=== PATIENT | male | born 1955 | race Caucasian/White ===

== ENCOUNTER 2020-07-26 18:34 | Emergency (ER) | payer MEDICARE, BC, SELFPAY ==
[2020-07-26 18:45] VITALS: BP 137/80; PULSE 79; RESP 20; TEMP 36.6; O2SAT 97; BMI 27.9
--- NOTE | 2020-07-26 19:25 | HMH.EDUTC ---
[facility] [place] Clinical Impression: Hypertension Qualifiers: Hypertension type: unspecified Qualified Code(s): I10 - Essential (primary) hypertension Diarrhea Qualifiers: Diarrhea type: unspecified type Qualified Code(s): R19.7 - Diarrhea, unspecified Disposition: Home, Self-Care Condition on Discharge: Good Instructions: DI for Food Poisoning, Essential Hypertension Additional Instructions: Drink plenty of fluids. Take tylenol for pain or fever. Take the medications as directed. The zofran is for nausea/vomiting if you have any. We gave you supplies to bring a stool sample back for testing if your symptoms continue. Follow up with your regular doctor. GO TO THE ER FOR ANY WORSENING SYMPTOMS Prescriptions: Ondansetron [Zofran 4mg ODT] 4 mg PO Q8HP PRN #20 tab.rapdis PRN Reason: Nausea Transmission Status: Received by [facility] #[id number] Amlodipine Besylate [Amlodipine 10mg Tab] 10 mg PO DAILY 30 Days #30 tab Transmission Status: Received by [facility] #[id number] Benazepril HCl 20 mg PO DAILY 30 Days #30 tab Transmission Status: Received by [facility] #[id number] Metformin HCl 500 mg PO BID 30 Days #60 solution Transmission Status: Received by [facility] #[id number] Referrals: PCP,No [Primary Care Provider] - Time of Disposition: 19:34 Medical Decision Making - Medical Records Medical records reviewed: No: I reviewed the patient's medical records. - Lloyd Inquiry Pt receiving controlled substance: No Vital Signs: 07/26/20 18:45 07/26/20 19:37 Temperature 98 F 98.0 F Temperature Source Oral Pulse Rate 79 Pulse Rate [Right Brachial] 79 Respiratory Rate 20 20 Blood Pressure 137/80 Blood Pressure [Right Arm] 137/80 Blood Pressure Mean [Right Arm] 99 Blood Pressure Source [Right Arm] Automatic Cuff Blood Pressure Position [Right Arm] Sitting 02 Sat by Pulse Oximetry 97 Oxygen Delivery Method Room Air [facility] [place] HPI - General Stated complaint: Needs Blood Pressed Medication,Vomiting,Diarrhea Time Seen by Provider: 07/26/20 19:25 Mode of Arrival: Ambulatory Source of Information: Patient Limitations: No Limitations Description of Symptoms (Recalled from Triage Doc. by RN): PATIENT C/O NAUSEA, DIARRHEA, BODY ACHES, AND SWEATS SINCE FRIDAY. HE STATES HE HAD [employer] AND ATE ON IT FOR 3 DAYS, GETTING SICK AFTER THE THIRD DAY. HE IS ALSO REQUESTING A REFILL ON HIS BLOOD PRESSURE MEDICATIONS HEENT Symptoms (Recalled from RN notes): No Resp Symptoms (Recalled from RN notes): No Skin Symptoms (Recalled from RN notes): No MS Symptoms (Recalled from RN notes): No Functional Status (Recalled from RN notes): WNL - History of Present Illness Provider Complaint: He states that he has had diarrhea and nausea for the past 2 days. He thinks that he ate some [employer] chicken that caused him to have his symptoms. He states that his diarrhea is doing better today. He recently moved her from [place], so he does not have a primary care physician here yet. He is about to run out of his high blood pressure medications. - Related Data Home Medications Medication Instructions Recorded Confirmed Amlodipine Besylate [Amlodipine 10 mg PO DAILY 07/26/20 07/26/20 10mg Tab] Benazepril HCl [Lotensin] 20 mg PO DAILY 07/26/20 07/26/20 Hydrocodone/Acetaminophen 1 each PO QIDP PRN 07/26/20 07/26/20 [Hydrocodone-Acetamin 10-325 mg] Previous Rx's Medication Instructions Recorded Amlodipine Besylate [Amlodipine 10 mg PO DAILY 30 Days #30 tab 07/26/20 10mg Tab] Benazepril HCl 20 mg PO DAILY 30 Days #30 tab 07/26/20 Metformin HCl 500 mg PO BID 30 Days #60 solution 07/26/20 Ondansetron [Zofran 4mg ODT] 4 mg PO Q8HP PRN #20 tab.rapdis 07/26/20 Allergies Allergy/AdvReac Type Severity Reaction Status Date / Time No Known Allergies Allergy Verified 07/26/20 19:08 - Worker's Comp Is this a Worker's Comp case?: No [facility] Histo
[2020-07-26 19:37] VITALS: BP 137/80; PULSE 79; RESP 20; TEMP 36.7; O2SAT 97
== END 2020-07-26 19:42 | disposition home or self-care (01) ==
PROVIDERS: Emergency Provider Nurse Practitioner Family
DX: R19.7 Diarrhea, unspecified (principal); R11.10 Vomiting, unspecified; I10 Essential (primary) hypertension; Z79.899 Other long term (current) drug therapy
CPT/HCPCS: 99202; G0463

== ENCOUNTER 2021-01-03 18:12 | Emergency (ER) | payer MEDICARE, BC, SELFPAY ==
[2021-01-03 18:17] VITALS: BP 135/90; PULSE 90; RESP 16; TEMP 37; O2SAT 98; BMI 27.2
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
[2021-01-03 18:52] VITALS: BP 135/90; PULSE 90; RESP 16; TEMP 37
== END 2021-01-03 18:59 | disposition home or self-care (01) ==
PROVIDERS: Emergency Provider Nurse Practitioner; PCP Family Medicine
DX: H66.92 Otitis media, unspecified, left ear (principal); H61.22 Impacted cerumen, left ear
CPT/HCPCS: G0463; 99202

== ENCOUNTER → 2021-01-16 11:22 | Outpatient (POV) | payer MEDICARE, BC, SELFPAY ==
[2021-01-16 11:45] VITALS: BP 118/79; PULSE 87; RESP 18; O2SAT 97; BMI 27.6
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
== END ==
PROVIDERS: Visit Provider Clinical Nurse Specialist Family Health
DX: R51.9 Headache, unspecified (principal); G89.29 Other chronic pain
CPT/HCPCS: 99212; G0463

== ENCOUNTER → 2021-02-05 15:09 | Outpatient (POV) | payer MEDICARE, BC, SELFPAY ==
[2021-02-05 15:57] VITALS: BP 107/74; PULSE 84; RESP 18; O2SAT 97; BMI 28.3
[2021-02-05 16:47] LABS: Amphetamine/Metha Screen,Urine Negative ng/ml (<1000); Barbiturates Screen,Urine Negative ng/ml (<200)
[2021-02-05 16:48] LABS: Benzodiazepines Screen,Urine Negative ng/ml (<200)
[2021-02-05 16:49] LABS: Cannabinoid Screen,Urine Negative ng/ml (<50); Cocaine Screen,Urine Negative ng/ml (<300)
[2021-02-05 16:50] LABS: Methadone Screen,Urine Negative ng/ml (<300)
[2021-02-05 16:51] LABS: Phencyclidine Screen,Urine Negative ng/ml (<25)
[2021-02-05 18:28] LABS: Opiate Screen,Urine Positive ng/ml (<300)
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
== END ==
PROVIDERS: Visit Provider Clinical Nurse Specialist Family Health
DX: G89.4 Chronic pain syndrome (principal); R51.9 Headache, unspecified; Z79.899 Other long term (current) drug therapy
CPT/HCPCS: 80305; 99212; G0463

== ENCOUNTER → 2021-03-15 10:12 | Outpatient (POV) | payer MEDICARE, BC, SELFPAY ==
[2021-03-15 10:20] VITALS: BP 142/77; PULSE 84; RESP 18; O2SAT 98; BMI 29.5
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
== END ==
PROVIDERS: Visit Provider Clinical Nurse Specialist Family Health
DX: G89.4 Chronic pain syndrome; R51.9 Headache, unspecified
CPT/HCPCS: 99212; G0463

== ENCOUNTER → 2021-04-16 10:48 | Outpatient (POV) | payer MEDICARE, BC, SELFPAY ==
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
[2021-04-16 11:32] VITALS: BP 126/86; PULSE 81; RESP 18; O2SAT 98; BMI 28.3
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
== END ==
PROVIDERS: Visit Provider Clinical Nurse Specialist Family Health
DX: G89.4 Chronic pain syndrome (principal); R51.9 Headache, unspecified
CPT/HCPCS: 99212; G0463

== ENCOUNTER → 2021-05-17 07:33 | Outpatient (POV) | payer MEDICARE, BC, SELFPAY ==
--- NOTE | 2021-05-17 08:16 | HMH.VVPMSO ---
[facility] PM Virtual Visit SOAP Consent for virtual visit:: With the recent concerns about the COVID-19, we are trying to minimize exposure to you by shifting to telehealth appointments whenever possible. It restricts me from seeing you in person, but the trade off is protecting you during this pandemic. Can you see and hear me okay, and do you consent to this option? If not, I would be happy to see if we can reschedule your appointment in the future, when feasible. Has patient consented to this virtual visit?: Yes Subjective:: pATIENT is a 65 year old white male who is following up via telehealth phone visit due to weather conditions today. We are conducting this visit from his home and my home today. The patient states he is doing well overall with his medication regimen. We currently manage the patient with [place] 10 mg 1 tablet p.o. 4 times daily moderate pain as well as gabapentin 3 mg 1 tablet p.o. 3 times daily. The medicines are working well for him. He is at baseline for his pain. The patient is treated for chronic low back pain and lumbar radicular symptoms. He denies any side effects of medicines. Previous drug screens have been appropriate. His Nikita is appropriate. Review of Systems General: No recent weight changes, no fever, no sleep disturbances Respiratory: No cough, no shortness of air, no recurring pulmonary infections Cardiovascular/peripheral vascular: No chest pain, no palpitations, no edema, no shortness of breath Gastrointestinal: No new onset incontinence, normal bowel movements reported Genitourinary: No new onset incontinence Musculoskeletal: Chronic low back pain with pain in bilateral lower extremities Psychiatric: [Normal mood/affect] Neurological: [Denies weakness in extremities], [denies balance issues] Objective:: Physical exam General: Alert and oriented x3, no acute distress, pleasant and cooperative Assessment:: Degenerative disc disease lumbar spine with lumbar radiculopathy symptoms Plan:: We will continue the patient's Kimball 10 mg 1 tablet p.o. 4 times daily and gabapentin 100 mg 1 tablet p.o. 3 times daily. We'll give the patient a month medication will see him back in the clinic at next visit. ORT is minimal risk Risks and benefits of the medication have been explained in detail to the patient. The patient does understand the risk of dependence on the medication when given over a prolonged period. Patient has been advised of risks of oversedation with the prescribed medication. Narcan has been offered to the paitent in the event of oversedation. Patient has been advised that a family member should also be educated regarding administration of Narcan. The patient has been advised to consult with his/her primary care provider and pharmacist regarding drug-drug interaction of medications currently prescribed. Patient has been prescribed a controlled substance after being counseled on the medication, medication safety, and possible side effects. NIKITA report has been obtained and reviewed prior to prescription and found to be appropriate. Opioid contract was reviewed and signed by the patient, and that they have agreed to all of the terms set forth by our compliance program. Patient has been instructed to contact the clinic with any concerns before the next appointment. Dr. Santiago has reviewed this note and agrees with this plan of care. This note was dictated using voice recognition software and make contain errors or omissions. Time In:: 08:00 Time Out:: 08:10 [facility] History I have reviewed the patient's past medical history: Yes *Have you ever received a pneumonia vaccine?: No *Have you received a flu vaccine this season?: No - *Social History Smoking Status: Never smoker Alcohol Intake: never *Occupational Status:: unemployed *Travel in the last 8 weeks: None Family Hx:: Non-contributory
== END ==
PROVIDERS: Visit Provider Clinical Nurse Specialist Family Health
DX: M51.16 Intervertebral disc disorders with radiculopathy, lumbar region (principal)
CPT/HCPCS: 99212; G0463

== ENCOUNTER → 2021-06-14 10:42 | Outpatient (POV) | payer MEDICARE, BC, SELFPAY ==
[2021-06-14 12:21] VITALS: BP 143/92; PULSE 77; RESP 20; TEMP 36.7; O2SAT 96; BMI 28.3
--- NOTE | 2021-06-14 14:47 | HMH.PAINSOAP ---
[facility] Pain Management SOAP Note Subjective:: She is a very pleasant 66-year-old white male who presents today for follow-up. He is currently being treated for degenerative disc disease of lumbar spine with lumbar radiculopathy. He is currently taking [place] 10 mg 1 tablet p.o. 4 times daily and gabapentin 300 mg 1 tablet p.o. 3 times daily. He denies any adverse effects to his medications. He states that the current pain medications are helping him be more functional and ambulate better. He rates his pain today as a 6 out of 10. He is requesting refills on his medications today. Objective:: General: Alert and oriented x3, no acute distress, pleasant and cooperative Lungs: Resps E/U, symmetric chest expansion Eyes: PERRL Musculoskeletal: limited flexion and extension of the lumbar spine secondary to pain. Deep tendon reflexes were normal in bilateral lower extremities. Motor exam was grossly intact in the bilateral lower extremities, antalgic gait noted. Neurological: Speech is clear, global human resources director equal, no gross sensory deficits Assessment:: Degenerative disc disease of the lumbar spine with lumbar radiculopathy Plan:: I discussed with the patient that we will refill [place] 10 mg 1 tablet p.o. 4 times daily #120 for a 1 month supply and gabapentin 300 mg 1 tablet p.o. 3 times daily #90 for 1 month supply. We will follow-up with this patient in 1 month for reassessment of his chronic pain symptoms and medication refills. Lloyd and prior drug screens were reviewed and appropriate. [facility] History *Have you ever received a pneumonia vaccine?: No *Have you received a flu vaccine this season?: No - *Social History Smoking Status: Never smoker Alcohol Intake: never *Occupational Status:: other *Travel in the last 8 weeks: None Family Hx:: Non-contributory
== END ==
PROVIDERS: Visit Provider Anesthesiology Pain Medicine
DX: M51.16 Intervertebral disc disorders with radiculopathy, lumbar region (principal)
CPT/HCPCS: 99212; G0463

== ENCOUNTER → 2021-07-16 10:22 | Outpatient (POV) | payer MEDICARE, BC, SELFPAY ==
[2021-07-16 10:42] VITALS: BP 133/90; PULSE 90; RESP 18; TEMP 36.3; O2SAT 97; BMI 28.7
[2021-07-16 11:41] LABS: Benzodiazepines Screen,Urine Negative ng/ml (<200)
[2021-07-16 11:42] LABS: Amphetamine/Metha Screen,Urine Negative ng/ml (<1000); Barbiturates Screen,Urine Negative ng/ml (<200)
[2021-07-16 11:43] LABS: Cannabinoid Screen,Urine Negative ng/ml (<50); Cocaine Screen,Urine Negative ng/ml (<300)
[2021-07-16 11:44] LABS: Methadone Screen,Urine Negative ng/ml (<300)
[2021-07-16 11:45] LABS: Opiate Screen,Urine Positive ng/ml (<300); Phencyclidine Screen,Urine Negative ng/ml (<25)
--- NOTE | 2021-07-16 11:51 | HMH.PAINSOAP ---
[facility] Pain Management SOAP Note Subjective:: Patient is a pleasant 66-year-old male who is here for medication refill and follow-up. Patient is currently being treated for degenerative disc disease of lumbar spine with lumbar radiculopathy symptoms. Patient is being managed with [place] 10 mg 4 times a day and gabapentin 100 mg 3 times a day. Patient states that if he takes the gabapentin 3 times a day, he gets nerve pain around his left ankle. This got better when he stopped taking his gabapentin. Does say that the gabapentin is helping his nerve pain a lot but has to watch how often he takes it. Patient denies any changes to the location and type of pain. Patient states that this is adequately helping manage their pain. Rates pain as 0 out of 10. [facility] number [phone] with an active morphine equivalent 40. Drug screens have been reviewed and appropriate. Review of Systems: General: No recent weight changes, no fever, no sleep disturbances Respiratory: No cough, no shortness of air, no recurring pulmonary infections Cardiovascular/peripheral vascular: No chest pain, no palpitations, no edema, no shortness of breath Gastrointestinal: No new onset incontinence, normal bowel movements reported Genitourinary: No new onset incontinence Musculoskeletal: Low back pain Psychiatric: [Normal mood/affect] Neurological: [Denies weakness in extremities], [denies balance issues] Objective:: Physical Exam: General: Alert and oriented x3, no acute distress, pleasant and cooperative, [on room air] Lungs: Respirations even and unlabored, symmetrical chest expansion Eyes: PERRL Musculoskeletal: Flexion and extension of lumbar [spine] somewhat guarded secondary to pain, [antalgic gait noted] Neurological: Speech clear, no gross sensory deficit Assessment:: Degenerative disc disease of lumbar spine with lumbar radiculopathy symptoms Plan:: We will continue the patient's [place] 10 mg 4 times a day. We will change his gabapentin to gabapentin 100 mg twice a day. We will provide the patient with 1 month worth of refill. Follow-up in 1 month. If patient continues to have pain when taking gabapentin, will consider changing the patient to gabapentin 100 mg to take at night only and will add Cymbalta. Patient has been instructed to contact the clinic with any concerns before the next appointment. Dr. Santiago has reviewed this note and agrees with this plan of care. This note was dictated using voice recognition software and make contain errors or omissions. [facility] History *Have you ever received a pneumonia vaccine?: No *Have you received a flu vaccine this season?: No - *Social History Smoking Status: Never smoker Alcohol Intake: never *Occupational Status:: unemployed *Travel in the last 8 weeks: None Family Hx:: Non-contributory
[2021-07-24 15:11] LABS: Codeine Negative (Cutoff=100); Hydrocodone Positive (.); Hydromorphone Positive (.); Morphine Negative (Cutoff=100); Opiates Positive (.)
== END ==
PROVIDERS: Visit Provider Student in an Organized Health Care Education/Training Program
DX: M51.16 Intervertebral disc disorders with radiculopathy, lumbar region (principal); Z79.891 Long term (current) use of opiate analgesic
CPT/HCPCS: 80305; 80361; 80365; 99212; G0463; G0480

== ENCOUNTER 2021-08-01 18:20 | Emergency (ER) | payer MEDICARE, BC, SELFPAY ==
[2021-08-01 18:48] VITALS: BP 130/70; PULSE 84; RESP 19; TEMP 36.9; O2SAT 94; BMI 28.7
[2021-08-01 19:13] LABS: POC Glucose,Bedside 106 (70-110)
--- NOTE | 2021-08-01 19:16 | HMH.EDUTC ---
[facility] [place] Disposition Clinical Impression: Bronchitis Sinusitis Qualifiers: Sinusitis location: unspecified location Chronicity: unspecified Qualified Code(s): J32.9 - Chronic sinusitis, unspecified Disposition: Home, Self-Care Condition on Discharge: Good Instructions: Sinusitis, Acute Bronchitis, DI for Sinusitis, DI for Acute Bronchitis, Azithromycin Additional Instructions: ? Start antibiotic today. Be sure to complete entire prescription even if feeling better ? Monitor temp. Tylenol every 4 hours as needed and / or ibuprofen every 6 hours as needed ( As long as your primary care physician has told you that it ok to take both. For fever/aches/pains ER if no less than 101 despite Tylenol or Motrin ? Humidifier/vaporizer or hot steamy shower *Tessalon Perles will not cause drowsiness but use at bedtime to help stop cough so that you may get some rest. Follow up IMMEDIATELY for new or worsening of symptoms OR no noticeable improvement over the next 48-72 hours. 911 immediately for any life threatening symptoms such as chest pain or difficulty breathing Prescriptions: Albuterol Sulfate [Proventil-HFA 90mcg/puff Inh] 1 - 2 puffs IH Q6HP PRN #1 each PRN Reason: Shortness Of Breath Transmission Status: Received by [id number] Benzonatate [Benzonatate 100mg cap] 100 mg PO Q8HP PRN #15 cap PRN Reason: Cough Transmission Status: Received by [id number] Azithromycin [Z-Lamin 250mg Tab] 250 mg PO DIRECTED #6 tab Transmission Status: Received by [id number] Ondansetron [Zofran 4mg ODT] 4 mg PO TIDP PRN #10 tab PRN Reason: Nausea Transmission Status: Received by [id number] Referrals: Concepcion Knutson MD [Primary Care Provider] - As needed Time of Disposition: 19:33 Medical Decision Making - Lloyd Inquiry Pt receiving controlled substance: No Lloyd was queried for this patient: No Vital Signs: 08/01/21 18:48 08/01/21 19:54 Temperature 98.4 F 98.4 F Temperature Source Oral Pulse Rate 84 Pulse Rate [Left Radial] 84 Respiratory Rate 19 19 Blood Pressure 130/70 Blood Pressure [Left Arm] 130/70 Blood Pressure Mean [Left Arm] 90 Blood Pressure Source [Left Arm] Automatic Cuff Blood Pressure Position [Left Arm] Sitting 02 Sat by Pulse Oximetry 94 L Oxygen Delivery Method Room Air - Lab Data Lab results reviewed: Yes: I reviewed the patient's lab results. Lab Results 08/01/21 18:57: Urine Color Yellow, Urine Appearance Clear, Urine pH 6.5, Ur Specific [place] 1.020, Urine Protein Negative, Urine Glucose (UA) Negative, Urine Ketones Negative, Urine Blood Negative, Urine Nitrate Negative, Urine Bilirubin Negative, Urine Urobilinogen 1, Ur Leukocyte Esterase Negative 08/01/21 19:06: POC Glucose 106 Orders (Tests/Meds): ED MEDICATIONS Discontinued Medications Generic Name Dose Route Start Last Admin Trade Name Jane PRN Reason Stop Dose Admin Azithromycin 500 mg 08/01/21 19:38 08/01/21 19:40 Azithromycin 250mg Tablet PO 08/01/21 19:39 500 mg ONCE ONE Administration Medical Decision Narrative: Recommended flu, COVID and strep and patient refused Recommended CXR and patient refused discussed medications with patient recommended Cefdinir and patient declined states that he would take bactrim or zpack [facility] [place] [facility] HPI - General Stated complaint: SOB cough Abd pain body aches Time Seen by Provider: 08/01/21 18:55 Mode of Arrival: Ambulatory Source of Information: Patient Limitations: No Limitations Description of Symptoms (Recalled from Triage Doc. by RN): C/O bodyaches, productive cough x2 days HEENT Symptoms (Recalled from RN notes): No Resp Symptoms (Recalled from RN notes): Yes (cough) Skin Symptoms (Recalled from RN notes): No MS Symptoms (Recalled from RN notes): Yes (bodyaches) Functional Status (Recalled from RN notes): n/a - History of Present Illness Provider Complaint: Patient states that he has been having cough, sinus pa
[2021-08-01 19:33] LABS: Apearance,Urine Clear (Clear); Bilirubin,Urine Negative (Negative); Blood, Urine Negative (Negative); Color,Urine Yellow (Yellow); Glucose,Urine (UA) Negative (Negative); Ketones,Urine Negative (Negative); PH,Urine 6.5 (5.0-8.5); Protein,Urine Negative (Negative); UTC Leukocyte Esterase,Urine Negative (Negative); UTC Nitrate,Urine Negative (Negative); Urobilinogen,Urine 1 EU/dl (0.2)
[2021-08-01 19:54] VITALS: BP 130/70; PULSE 84; RESP 19; TEMP 36.9; O2SAT 94
== END 2021-08-01 19:55 | disposition home or self-care (01) ==
PROVIDERS: Emergency Provider Nurse Practitioner; PCP Family Medicine
DX: J20.9 Acute bronchitis, unspecified (principal); J32.9 Chronic sinusitis, unspecified
CPT/HCPCS: 81003; 82962; 99212; G0463

== ENCOUNTER → 2021-08-16 09:43 | Outpatient (POV) | payer MEDICARE, BC, SELFPAY ==
[2021-08-16 09:54] VITALS: BP 148/91; PULSE 92; RESP 18; TEMP 36.5; O2SAT 96; BMI 28.4
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
== END ==
PROVIDERS: Visit Provider Student in an Organized Health Care Education/Training Program
DX: M51.16 Intervertebral disc disorders with radiculopathy, lumbar region (principal); G58.8 Other specified mononeuropathies
CPT/HCPCS: 99212; G0463

== ENCOUNTER → 2021-09-17 09:40 | Outpatient (POV) | payer MEDICARE, BC, SELFPAY ==
[2021-09-17 10:33] VITALS: BP 146/93; PULSE 81; RESP 18; TEMP 36.8; O2SAT 95; BMI 28.4
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
== END ==
PROVIDERS: Visit Provider Student in an Organized Health Care Education/Training Program
DX: M51.16 Intervertebral disc disorders with radiculopathy, lumbar region (principal); G89.29 Other chronic pain
CPT/HCPCS: 99212; G0463

== ENCOUNTER → 2021-10-16 10:13 | Outpatient (POV) | payer MEDICARE, BC, SELFPAY ==
[2021-10-16 10:23] VITALS: BP 133/81; PULSE 85; RESP 20; TEMP 37; O2SAT 97; BMI 28.7
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
[2021-10-16 15:38] LABS: Amphetamine/Metha Screen,Urine Negative ng/ml (<1000); Barbiturates Screen,Urine Negative ng/ml (<200)
[2021-10-16 15:39] LABS: Benzodiazepines Screen,Urine Negative ng/ml (<200)
[2021-10-16 15:40] LABS: Cannabinoid Screen,Urine Negative ng/ml (<50); Cocaine Screen,Urine Negative ng/ml (<300)
[2021-10-16 15:41] LABS: Methadone Screen,Urine Negative ng/ml (<300)
[2021-10-16 15:42] LABS: Opiate Screen,Urine Positive ng/ml (<300); Phencyclidine Screen,Urine Negative ng/ml (<25)
[2021-10-23 15:11] LABS: Codeine Negative (Cutoff=100); Hydrocodone Positive (.); Hydromorphone Positive (.); Morphine Negative (Cutoff=100); Opiates Positive (.)
== END ==
PROVIDERS: Visit Provider Student in an Organized Health Care Education/Training Program
DX: M51.16 Intervertebral disc disorders with radiculopathy, lumbar region (principal); Z79.891 Long term (current) use of opiate analgesic; G50.1 Atypical facial pain
CPT/HCPCS: 80305; 80361; 80365; 99212; G0463; G0480

== ENCOUNTER → 2021-10-16 10:38 | Outpatient (CLI) | payer MEDICARE, BC, SELFPAY | PROVIDERS: PCP Family Medicine; Visit Provider Student in an Organized Health Care Education/Training Program | DX: Z79.891 Long term (current) use of opiate analgesic (principal) ==

== ENCOUNTER → 2021-11-15 11:42 | Outpatient (POV) | payer MEDICARE, BC, SELFPAY ==
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
== END ==
PROVIDERS: PCP Family Medicine; Visit Provider Nurse Practitioner Family
DX: M51.16 Intervertebral disc disorders with radiculopathy, lumbar region (principal); G50.0 Trigeminal neuralgia
CPT/HCPCS: 99212; G0463

== ENCOUNTER → 2021-12-13 10:18 | Outpatient (POV) | payer MEDICARE, BC, SELFPAY ==
[2021-12-13 10:30] VITALS: BP 137/81; PULSE 96; RESP 18; TEMP 36.7; O2SAT 97; BMI 28.4
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
== END | disposition home or self-care (01) ==
PROVIDERS: PCP Family Medicine; Visit Provider Nurse Practitioner Family
DX: M51.16 Intervertebral disc disorders with radiculopathy, lumbar region (principal)
CPT/HCPCS: 99212; G0463

== ENCOUNTER → 2022-01-14 10:05 | Outpatient (POV) | payer MEDICARE, BC, SELFPAY ==
[2022-01-14 10:54] VITALS: BP 154/90; PULSE 77; RESP 18; TEMP 36.6; O2SAT 94; BMI 28.1
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
[2022-01-14 11:40] LABS: Amphetamine/Metha Screen,Urine Negative ng/ml (<1000); Barbiturates Screen,Urine Negative ng/ml (<200)
[2022-01-14 11:41] LABS: Benzodiazepines Screen,Urine Negative ng/ml (<200)
[2022-01-14 11:42] LABS: Cannabinoid Screen,Urine Negative ng/ml (<50); Cocaine Screen,Urine Negative ng/ml (<300)
[2022-01-14 11:43] LABS: Methadone Screen,Urine Negative ng/ml (<300)
[2022-01-14 11:44] LABS: Opiate Screen,Urine Positive ng/ml (<300); Phencyclidine Screen,Urine Negative ng/ml (<25)
[2022-01-24 16:12] LABS: Codeine Negative (Cutoff=100); Hydrocodone Positive (.); Hydromorphone Positive (.); Morphine Negative (Cutoff=100); Opiates Positive (.)
== END | disposition home or self-care (01) ==
PROVIDERS: PCP Family Medicine; Visit Provider Nurse Practitioner Family
DX: M51.16 Intervertebral disc disorders with radiculopathy, lumbar region (principal); Z79.891 Long term (current) use of opiate analgesic; M79.2 Neuralgia and neuritis, unspecified
CPT/HCPCS: 80305; 80361; 80365; 99212; G0463; G0480

== ENCOUNTER → 2022-02-14 10:16 | Outpatient (POV) | payer MEDICARE, BC, SELFPAY ==
[2022-02-14 10:35] VITALS: BP 146/86; PULSE 82; RESP 18; TEMP 36.6; O2SAT 97; BMI 27.8
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
== END | disposition home or self-care (01) ==
PROVIDERS: PCP Family Medicine; Visit Provider Nurse Practitioner Family
DX: M51.16 Intervertebral disc disorders with radiculopathy, lumbar region (principal)
CPT/HCPCS: 99212; G0463

== ENCOUNTER → 2022-03-14 10:11 | Outpatient (POV) | payer MEDICARE, BC, SELFPAY ==
[2022-03-14 10:32] VITALS: BP 131/76; PULSE 96; RESP 18; O2SAT 98; BMI 28.1
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
== END | disposition home or self-care (01) ==
PROVIDERS: PCP Family Medicine; Visit Provider Nurse Practitioner Family
DX: M51.16 Intervertebral disc disorders with radiculopathy, lumbar region (principal); Z79.899 Other long term (current) drug therapy
CPT/HCPCS: 99212; G0463

== ENCOUNTER → 2022-04-11 08:37 | Outpatient (POV) | payer MEDICARE, BC, SELFPAY ==
[2022-04-11 08:47] VITALS: BP 119/84; PULSE 94; RESP 18; O2SAT 97; BMI 28.3
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
== END | disposition home or self-care (01) ==
PROVIDERS: PCP Psychiatry & Neurology Sleep Medicine; Visit Provider Nurse Practitioner Family
DX: M51.16 Intervertebral disc disorders with radiculopathy, lumbar region (principal); Z79.899 Other long term (current) drug therapy
CPT/HCPCS: 99212; G0463

== ENCOUNTER → 2022-05-09 08:38 | Outpatient (POV) | payer MEDICARE, BC, SELFPAY ==
[2022-05-09 08:49] VITALS: BP 140/89; PULSE 83; RESP 18; O2SAT 97; BMI 24.0
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
== END | disposition home or self-care (01) ==
PROVIDERS: PCP Family Medicine; Visit Provider Nurse Practitioner Family
DX: M51.16 Intervertebral disc disorders with radiculopathy, lumbar region (principal)
CPT/HCPCS: 99212; G0463

== ENCOUNTER → 2022-05-09 08:53 | Outpatient (CLI) | payer MEDICARE, BC, SELFPAY ==
[2022-05-09 10:01] LABS: Amphetamine/Metha Screen,Urine Negative ng/ml (<1000)
[2022-05-09 10:02] LABS: Barbiturates Screen,Urine Negative ng/ml (<200); Benzodiazepines Screen,Urine Negative ng/ml (<200)
[2022-05-09 10:03] LABS: Cannabinoid Screen,Urine Negative ng/ml (<50); Cocaine Screen,Urine Negative ng/ml (<300)
[2022-05-09 10:04] LABS: Methadone Screen,Urine Negative ng/ml (<300)
[2022-05-09 10:05] LABS: Opiate Screen,Urine Positive ng/ml (<300); Phencyclidine Screen,Urine Negative ng/ml (<25)
[2022-05-15 20:55] LABS: Codeine Negative (Cutoff=100); Hydrocodone Positive (.); Hydromorphone Positive (.); Morphine Negative (Cutoff=100); Opiates Positive (.)
== END ==
PROVIDERS: PCP Family Medicine; Visit Provider Nurse Practitioner Family
DX: Z79.891 Long term (current) use of opiate analgesic (principal)
CPT/HCPCS: 80305; 80361; 80365; 99212; G0463; G0480

== ENCOUNTER → 2022-06-10 08:50 | Outpatient (POV) | payer MEDICARE, BC, SELFPAY ==
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
[2022-06-10 10:10] VITALS: BP 116/80; PULSE 92; RESP 18; O2SAT 98; BMI 28.3
== END | disposition home or self-care (01) ==
PROVIDERS: PCP Family Medicine; Visit Provider Nurse Practitioner Family
DX: M51.16 Intervertebral disc disorders with radiculopathy, lumbar region (principal)
CPT/HCPCS: 99212; G0463

== ENCOUNTER 2022-06-16 14:44 | Emergency (ER) | payer MEDICARE, BC, SELFPAY ==
[2022-06-16 15:10] VITALS: BP 122/81; PULSE 92; RESP 22; TEMP 36.6; O2SAT 97; BMI 28.3
--- NOTE | 2022-06-16 15:22 | EXP.UTC ---
Discharge Plan Disposition Patient Disposition: Home, Self-Care Condition: Good Prescriptions Prescriptions: No Action amlodipine 10 MG tablet 10 mg PO DAILY benazepril 20 MG tablet 20 mg PO DAILY metformin 500 MG/5 ML solution 500 mg PO BID benzonatate 100 MG capsule 100 mg PO Q8HP PRN (Reason: Cough) Qty: 15 0RF albuterol sulfate 200 PUFFS HFA aerosol inhaler 1 - 2 puffs IH Q6HP PRN (Reason: Shortness Of Breath) Qty: 1 0RF ondansetron 4 MG tablet,disintegrating 4 mg PO TIDP PRN (Reason: Nausea) Qty: 10 0RF ibuprofen 800 MG tablet 800 mg PO TID PRN (Reason: Moderate Pain) 30 Days Qty: 240 1RF hydrocodone-acetaminophen 1 EACH tablet 1 tab PO QID Qty: 120 0RF gabapentin 100 MG capsule 300 mg PO BID Qty: 60 0RF duloxetine 60 MG capsule,delayed release(DR/EC) 60 mg PO DAILY hydroxyzine HCl 10 mg tablet 10 mg PO TID PRN (Reason: itching) Qty: 42 0RF tizanidine [Zanaflex] 4 mg tablet 4 mg PO HS Referrals Follow up/Referrals: Concepcion Knutson MD [Primary Care Provider] - See instructions Activity Restrictions/Add. Instructions Additional Instructions/Restrictions: Keep wound clean and dry \ Allow dermabond and steri strip to wear off do not pick or pull it off Watch for signs of infection including but not limited too redness, drainage, and streaks if seen follow up with your Family Doctor immediately Return if needed Clinical Impressions Clinical Impression: Finger laceration Qualifiers: Encounter type: initial encounter Finger: index finger Damage to nail status: without damage Foreign body presence: without foreign body Laterality: left Qualified Code(s): S61.211A - Laceration without foreign body of left index finger without damage to nail, initial encounter Instructions Patient Instructions: DI for Laceration Repair-Skin Glue Discharge ED Provider: Raegan Penn [facility] HPI General Stated complaint: AO@Home 3/5 LT hand forefinger lesion Time Seen by Provider: 06/16/22 15:22 History of Present Illness Provider Complaint: Patient states that he was cutting a can open when the knife slipped and he cut himself on the pad of his left index finger States that it wasnt cut bad but he knew he needed to get something done for it so he came in Related Data Home Medications Medication Instructions Recorded Confirmed amlodipine 10 mg tablet 10 mg PO DAILY . 06/14/21 06/10/22 benazepril 20 mg tablet 20 mg PO DAILY . 06/14/21 06/10/22 metformin 500 mg/5 mL oral solution 500 mg PO BID Diabetes 06/14/21 06/10/22 duloxetine 60 mg capsule,delayed 60 mg PO DAILY MOOD 09/17/21 06/10/22 release tizanidine 4 mg tablet (Zanaflex) 4 mg PO HS MUSCLE 02/14/22 06/10/22 Previous Rx's Medication Instructions Recorded albuterol sulfate 90 mcg/actuation 1 - 2 puffs IH Q6HP PRN Shortness 08/01/21 aerosol inhaler Of Breath #1 ea benzonatate 100 mg capsule 100 mg PO Q8HP PRN Cough #15 caps 08/01/21 ondansetron 4 mg disintegrating 4 mg PO TIDP PRN Nausea #10 tabs 08/01/21 tablet ibuprofen 800 mg tablet 800 mg PO TID PRN Moderate Pain 30 11/15/21 days #240 tabs hydroxyzine HCl 10 mg tablet 10 mg PO TID PRN itching #42 tabs 01/14/22 gabapentin 100 mg capsule 300 mg PO BID Pain #60 caps 06/10/22 hydrocodone 10 mg-acetaminophen 1 tab PO QID Pain #120 tabs 06/10/22 325 mg tablet Allergies Allergy/AdvReac Type Severity Reaction Status Date / Time No Known Allergies Allergy Verified 07/26/20 19:08 [facility] Disclaimer: The information contained in this section may have been updated after the patient was seen, as this information can be updated by other users. Social History Smoking Status: Never smoker alcohol intake: never current occupational status: disabled Travel in the last 8 weeks: None ROS Obtained: Yes All systems reviewed & no additional complaints except as documented and Yes Systems reviewed as appropriate & no add
[2022-06-16 15:49] VITALS: BP 122/81; PULSE 92; RESP 22; TEMP 36.6; O2SAT 97
== END 2022-06-16 15:53 | disposition home or self-care (01) ==
PROVIDERS: Emergency Provider Nurse Practitioner; PCP Family Medicine
DX: S61.211A Laceration without foreign body of left index finger without damage to nail, initial encounter (principal)
CPT/HCPCS: 99212; 99213; G0463

== ENCOUNTER → 2022-07-08 09:09 | Outpatient (POV) | payer MEDICARE, BC, SELFPAY ==
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
[2022-07-08 10:33] VITALS: BP 123/77; PULSE 85; RESP 18; O2SAT 97; BMI 24.4
== END | disposition home or self-care (01) ==
PROVIDERS: PCP Family Medicine; Visit Provider Nurse Practitioner Family
DX: M51.16 Intervertebral disc disorders with radiculopathy, lumbar region (principal)
CPT/HCPCS: 99212; G0463

== ENCOUNTER → 2022-09-05 10:34 | Outpatient (POV) | payer MEDICARE, BC, SELFPAY ==
[2022-09-05 10:47] VITALS: BP 143/94; PULSE 91; RESP 20; BMI 28.7
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
[2022-09-05 11:32] LABS: Amphetamine/Metha Screen,Urine Negative ng/ml (<1000)
[2022-09-05 11:33] LABS: Barbiturates Screen,Urine Negative ng/ml (<200); Benzodiazepines Screen,Urine Negative ng/ml (<200)
[2022-09-05 11:34] LABS: Cannabinoid Screen,Urine Negative ng/ml (<50)
[2022-09-05 11:35] LABS: Cocaine Screen,Urine Negative ng/ml (<300)
[2022-09-05 11:36] LABS: Methadone Screen,Urine Negative ng/ml (<300)
[2022-09-05 11:37] LABS: Opiate Screen,Urine Positive ng/ml (<300); Phencyclidine Screen,Urine Negative ng/ml (<25)
[2022-09-11 18:05] LABS: Codeine Negative (Cutoff=100); Hydrocodone Positive (.); Hydromorphone Positive (.); Morphine Negative (Cutoff=100); Opiates Positive (.)
== END | disposition home or self-care (01) ==
PROVIDERS: PCP Family Medicine; Visit Provider Nurse Practitioner Family
DX: M51.16 Intervertebral disc disorders with radiculopathy, lumbar region (principal); Z79.891 Long term (current) use of opiate analgesic
CPT/HCPCS: 80305; 80361; 80365; 99212; G0463; G0480

== ENCOUNTER → 2022-10-03 09:46 | Outpatient (POV) | payer MEDICARE, BC, SELFPAY ==
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
[2022-10-03 09:55] VITALS: BP 127/76; PULSE 73; RESP 18; O2SAT 97; BMI 28.4
== END | disposition home or self-care (01) ==
PROVIDERS: PCP Family Medicine; Visit Provider Nurse Practitioner Family
DX: M51.16 Intervertebral disc disorders with radiculopathy, lumbar region (principal); G50.1 Atypical facial pain
CPT/HCPCS: 99212; G0463

== ENCOUNTER → 2022-11-04 10:03 | Outpatient (POV) | payer MEDICARE, BC, SELFPAY ==
[2022-11-04 10:19] VITALS: BP 121/83; PULSE 85; RESP 20; O2SAT 94; BMI 28.7
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
== END | disposition home or self-care (01) ==
PROVIDERS: PCP Family Medicine; Visit Provider Nurse Practitioner Family
DX: M51.16 Intervertebral disc disorders with radiculopathy, lumbar region (principal); G51.9 Disorder of facial nerve, unspecified
CPT/HCPCS: 99212; G0463

== ENCOUNTER → 2022-12-04 08:43 | Outpatient (POV) | payer MEDICARE, BC, SELFPAY ==
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
[2022-12-04 10:14] VITALS: BP 150/86; PULSE 85; RESP 18; O2SAT 98; BMI 28.4
== END | disposition home or self-care (01) ==
PROVIDERS: PCP Family Medicine; Visit Provider Nurse Practitioner Family
DX: M51.16 Intervertebral disc disorders with radiculopathy, lumbar region (principal); G51.8 Other disorders of facial nerve; M79.10 Myalgia, unspecified site
CPT/HCPCS: 99212; G0463

== ENCOUNTER → 2023-01-02 08:15 | Outpatient (POV) | payer MEDICARE, BC, SELFPAY ==
[2023-01-02 08:40] VITALS: BP 136/84; PULSE 89; RESP 18; O2SAT 96; BMI 28.4
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
== END | disposition home or self-care (01) ==
PROVIDERS: PCP Family Medicine; Visit Provider Nurse Practitioner Family
DX: M51.16 Intervertebral disc disorders with radiculopathy, lumbar region (principal); G51.9 Disorder of facial nerve, unspecified
CPT/HCPCS: 99212; G0463

== ENCOUNTER → 2023-02-03 11:54 | Outpatient (POV) | payer MEDICARE, BC, SELFPAY ==
--- NOTE | 2023-02-03 12:11 | EXP.PAIN.SOA ---
[facility] Pain Management SOAP Note Subjective:: This patient is a very pleasant 67-year-old male that comes our clinic today for a 1 month follow-up for medication refills. We currently treat the patient for degenerative disc lumbar spine multilevels. Lumbar radiculopathy symptoms. We currently manage the patient with [place] 10 mg 1 p.o. 4 times daily. Gabapentin 100 mg 1 p.o. twice daily. Patient reports medication helps with his pain significantly. He does not report any side effects or complications with the current p.o. medications. Patient rates his pain today 3/10. Patient is able to do ADLs with minimal discomfort. Objective:: Patient is awake alert [place] x3. In no acute distress. Flexion-extension lumbar spine somewhat guarded secondary to pain. Deep tendon reflexes upper and lower extremities normal. Motor strength upper and lower extremities normal. There is no gross sensory deficit. Gait is normal. Assessment:: Degenerative disc lumbar spine multilevels. Lumbar radiculopathy Plan:: We will refill the patient's pain medication [place] 10 mg 1 p.o. 4 times daily. Gabapentin 100 mg 1 p.o. twice daily. The patient's Lloyd #[id number] has been reviewed and appropriate. [facility] Disclaimer: The information contained in this section may have been updated after the patient was seen, as this information can be updated by other users. Social History Smoking Status: Never smoker alcohol intake: never substance use type: denies use current occupational status: other Travel in the last 8 weeks: None
[2023-02-03 14:39] VITALS: BP 158/95; PULSE 68; RESP 18; O2SAT 95; BMI 28.9
== END | disposition home or self-care (01) ==
PROVIDERS: PCP Family Medicine; Visit Provider Nurse Anesthetist, Certified Registered
DX: M51.16 Intervertebral disc disorders with radiculopathy, lumbar region (principal)
CPT/HCPCS: 99212; G0463

== ENCOUNTER → 2023-03-17 10:31 | Outpatient (POV) | payer BC, SELFPAY ==
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
[2023-03-17 11:23] VITALS: BP 109/78; PULSE 100; RESP 18; O2SAT 95; BMI 28.7
== END | disposition home or self-care (01) ==
PROVIDERS: PCP Family Medicine; Visit Provider Nurse Practitioner Family
DX: M51.16 Intervertebral disc disorders with radiculopathy, lumbar region (principal); G50.1 Atypical facial pain
CPT/HCPCS: 99212; G0463

== ENCOUNTER → 2023-04-16 13:20 | Outpatient (POV) | payer BC, SELFPAY ==
[2023-04-16 13:56] VITALS: BP 129/84; PULSE 91; RESP 18; O2SAT 96; BMI 28.7
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
== END | disposition home or self-care (01) ==
PROVIDERS: PCP Family Medicine; Visit Provider Nurse Practitioner Family
DX: M51.16 Intervertebral disc disorders with radiculopathy, lumbar region (principal); G50.1 Atypical facial pain
CPT/HCPCS: 99212; G0463

== ENCOUNTER 2023-04-16 13:44 | Outpatient (CLI) | payer BC, SELFPAY ==
[2023-04-16 21:00] LABS: Amphetamine/Metha Screen,Urine Negative ng/ml (<1000); Barbiturates Screen,Urine Negative ng/ml (<200); Benzodiazepines Screen,Urine Negative ng/ml (<200); Cannabinoid Screen,Urine Negative ng/ml (<50); Cocaine Screen,Urine Negative ng/ml (<300); Methadone Screen,Urine Negative ng/ml (<300); Opiate Screen,Urine Positive ng/ml (<300); Phencyclidine Screen,Urine Negative ng/ml (<25)
[2023-04-22 06:04] LABS: Codeine Negative (Cutoff=100); Hydrocodone Positive (.); Hydromorphone Positive (.); Morphine Negative (Cutoff=100); Opiates Positive (.)
== END 2023-04-16 23:59 ==
LOC: LAB 13:45
PROVIDERS: Nurse Practitioner Family; Visit Provider Anesthesiology
DX: Z79.891 Long term (current) use of opiate analgesic (principal)
CPT/HCPCS: 80307; 80361; 80365; G0480

== ENCOUNTER → 2023-05-16 08:47 | Outpatient (POV) | payer BC, SELFPAY ==
[2023-05-16 08:55] VITALS: BP 132/84; PULSE 93; RESP 18; O2SAT 97; BMI 28.4
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
== END | disposition home or self-care (01) ==
PROVIDERS: PCP Family Medicine; Visit Provider Nurse Anesthetist, Certified Registered
DX: M51.16 Intervertebral disc disorders with radiculopathy, lumbar region (principal); G50.1 Atypical facial pain; G89.29 Other chronic pain
CPT/HCPCS: 99212; G0463

== ENCOUNTER → 2023-06-16 09:46 | Outpatient (POV) | payer BC, SELFPAY ==
[2023-06-16 10:22] VITALS: BP 126/83; PULSE 75; RESP 18; BMI 28.3
--- NOTE | 2023-06-16 10:27 | EXP.PAIN.SOA ---
[facility] Pain Management SOAP Note Subjective:: Send 68-year-old male who presents today for medication refill. We are currently treating the patient for degenerative disc disease of lumbar spine with lumbar radiculopathy symptoms. Today he rates his pain at 3 out of 10. Patient denies any new trauma or injury. He is currently managed with [place] 10 mg 4 times a day. He denies any side effects from this medication. His Lloyd has been reviewed and is appropriate. Review of Systems: General: No recent weight changes, no fever, no sleep disturbances Respiratory: No cough, no shortness of air, no recurring pulmonary infections Cardiovascular/peripheral vascular: No chest pain, no palpitations, no edema, no shortness of breath Gastrointestinal: No new onset incontinence, normal bowel movements reported Genitourinary: No new onset incontinence Musculoskeletal: Low back pain Psychiatric: [Normal mood/affect] Neurological: [Denies weakness in extremities], [denies balance issues] Objective:: Physical Exam: General: Alert and oriented x3, no acute distress, pleasant and cooperative Lungs: Respirations even and unlabored, symmetrical chest expansion Eyes: PERRL Musculoskeletal: Flexion and extension of lumbar [spine] somewhat guarded secondary to pain, [antalgic gait noted] Neurological: Speech clear, no gross sensory deficit Assessment:: Degenerative disc disease of lumbar spine with lumbar radiculopathy symptoms Plan:: I will refill the patient's [place] 10 mg 4 times a day and provide a 1 month supply of this medication. Patient will return to clinic in 1 month for reevaluation of symptoms and plan of care. Risks and benefits of the medication have been explained in detail to the patient. The patient does understand the risk of dependence on the medication when given over a prolonged period. Patient has been advised of risks of oversedation with the prescribed medication. Narcan has been offered to the paitent in the event of oversedation. Patient has been advised that a family member should also be educated regarding administration of Narcan. The patient has been advised to consult with his/her primary care provider and pharmacist regarding drug-drug interaction of medications currently prescribed. Patient has been prescribed a controlled substance after being counseled on the medication, medication safety, and possible side effects. Opioid contract was reviewed and signed by the patient, and that they have agreed to all of the terms set forth by our compliance program. Patient has been instructed to contact the clinic with any concerns before the next appointment. Dr. Santiago has reviewed this note and agrees with this plan of care. This note was dictated using voice recognition software and make contain errors or omissions. [facility] Disclaimer: The information contained in this section may have been updated after the patient was seen, as this information can be updated by other users. Social History (Updated 02/03/23 @ 12:21 by Jacky Pereyra CRNA) Smoking Status: Never smoker alcohol intake: never substance use type: denies use current occupational status: retired Travel in the last 8 weeks: None
== END | disposition home or self-care (01) ==
PROVIDERS: PCP Family Medicine; Visit Provider Nurse Practitioner Family
DX: M51.16 Intervertebral disc disorders with radiculopathy, lumbar region (principal)
CPT/HCPCS: 99212; G0463

== ENCOUNTER → 2023-06-18 14:12 | Outpatient (CLI) | payer BC, SELFPAY | LOC: SL 14:12 | PROVIDERS: PCP Family Medicine; Visit Provider Family Medicine | DX: G47.30 Sleep apnea, unspecified (principal); R06.83 Snoring; G47.19 Other hypersomnia | CPT/HCPCS: G0399 ==

== ENCOUNTER 2023-07-14 09:55 | Outpatient (POV) | payer BC, SELFPAY ==
[2023-07-14 10:02] VITALS: BP 138/87; PULSE 87; RESP 18; O2SAT 98; BMI 27.8
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
== END 2023-07-14 23:59 | disposition home or self-care (01) ==
PROVIDERS: PCP Family Medicine; Visit Provider Nurse Practitioner Family
DX: M51.16 Intervertebral disc disorders with radiculopathy, lumbar region (principal); G50.1 Atypical facial pain
CPT/HCPCS: 99212; G0463

== ENCOUNTER 2023-08-13 10:00 | Outpatient (POV) | payer BC, SELFPAY ==
[2023-08-13 10:28] VITALS: BP 130/82; PULSE 79; RESP 18; O2SAT 97; BMI 27.4
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
== END 2023-08-13 23:59 | disposition home or self-care (01) ==
PROVIDERS: PCP Family Medicine; Visit Provider Nurse Practitioner Family
DX: M51.16 Intervertebral disc disorders with radiculopathy, lumbar region (principal); G50.1 Atypical facial pain
CPT/HCPCS: 99212; G0463

== ENCOUNTER 2023-09-15 14:19 | Outpatient (POV) | payer BC, SELFPAY ==
[2023-09-15 14:24] VITALS: BP 136/78; PULSE 79; RESP 18; O2SAT 95; BMI 28.3
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
[2023-09-15 15:37] LABS: Amphetamine/Metha Screen,Urine Negative ng/ml (<1000)
[2023-09-15 15:38] LABS: Barbiturates Screen,Urine Negative ng/ml (<200); Benzodiazepines Screen,Urine Negative ng/ml (<200)
[2023-09-15 15:39] LABS: Cannabinoid Screen,Urine Negative ng/ml (<50); Cocaine Screen,Urine Negative ng/ml (<300)
[2023-09-15 15:40] LABS: Methadone Screen,Urine Negative ng/ml (<300)
[2023-09-15 15:41] LABS: Opiate Screen,Urine Positive ng/ml (<300); Phencyclidine Screen,Urine Negative ng/ml (<25)
[2023-09-20 17:44] LABS: Codeine Negative (Cutoff=100); Hydrocodone Positive (.); Hydromorphone Positive (.); Morphine Negative (Cutoff=100); Opiates Positive (.)
== END 2023-09-15 23:59 | disposition home or self-care (01) ==
PROVIDERS: PCP Family Medicine; Visit Provider Nurse Practitioner Family
DX: M51.16 Intervertebral disc disorders with radiculopathy, lumbar region (principal); G50.1 Atypical facial pain
CPT/HCPCS: 80307; 80361; 80365; 99212; G0463; G0480

== ENCOUNTER 2023-10-20 10:38 | Outpatient (POV) | payer BC, SELFPAY ==
--- NOTE | 2023-10-20 10:48 | A.OFFVIS_ITS ---
[facility] Disclaimer: The information contained in this section may have been updated after the patient was seen, as this information can be updated by other users. Surgical History History of facial surgery History of hernia surgery Family History Other Diabetes Hypertension Social History Smoking Status: Never smoker alcohol intake: never substance use type: denies use current occupational status: disabled Travel in the last 8 weeks: None household members: significant other housing: house marital status: number of children: 7 PM Subjective & Objective Subjective Subjective:: Patient is a pleasant 68-year-old male who presents today for medication refill and follow-up. Today he rates his pain a 3 out of 10. Patient denies any new trauma or injury. Patient is currently managed with [place] 10 mg 4 times a day. He denies any side effects from this medication. His Lloyd has been reviewed and is appropriate. Review of Systems: General: No recent weight changes, no fever, no sleep disturbances Respiratory: No cough, no shortness of air, no recurring pulmonary infections Cardiovascular/peripheral vascular: No chest pain, no palpitations, no edema, no shortness of breath Gastrointestinal: No new onset incontinence, normal bowel movements reported Genitourinary: No new onset incontinence Musculoskeletal: Low back pain Psychiatric: [Normal mood/affect] Neurological: [Denies weakness in extremities], [denies balance issues] Pain at rest (0-10 scale): 3 Objective Objective:: Physical Exam: General: Alert and oriented x3, no acute distress, pleasant and cooperative Lungs: Respirations even and unlabored, symmetrical chest expansion Eyes: PERRL Musculoskeletal: Flexion and extension of lumbar [spine] somewhat guarded secondary to pain, [antalgic gait noted] Neurological: Speech clear, no gross sensory deficit Has patient had previous pain injection?: No Conservative treatment options previously tried: Home exercise plan Length of treatment: Longer than 6 weeks and Prescription medications Length of treatment: Longer than 6 weeks Meds Home Medications and Allergies Home Medications Medication Instructions Recorded Confirmed Type amlodipine 10 mg tablet 10 mg PO DAILY . 06/14/21 09/15/23 History benazepril 20 mg tablet 20 mg PO DAILY . 06/14/21 09/15/23 History metformin 500 mg/5 mL oral solution 500 mg PO BID Diabetes 06/14/21 09/15/23 History albuterol sulfate 90 mcg/actuation 1 - 2 puffs inhalation Q6HP PRN 08/01/21 09/15/23 Rx aerosol inhaler Shortness Of Breath #1 ea ibuprofen 800 mg tablet 800 mg PO TID PRN Moderate Pain 30 11/15/21 09/15/23 Rx days #240 tabs ramelteon 8 mg tablet 8 mg PO HS Insomnia and blindness 07/17/23 09/15/23 Rx #30 tabs hydrocodone 10 mg-acetaminophen 1 tab PO QID #120 tabs 09/15/23 Rx 325 mg tablet hydrocodone 10 mg-acetaminophen 1 tab PO QID #24 tabs 10/08/23 Rx 325 mg tablet New Prescriptions to Start Prescriptions: Allergies Allergy/AdvReac Type Severity Reaction Status Date / Time albuterol Allergy Severe breathing Verified 07/17/23 15:38 problems Assessment and Plan *Assessment and plan (1) Degenerative disc disease, lumbar: Status: Acute Category: Medical Code(s): M51.36 - Other intervertebral disc degeneration, lumbar region (2) Lumbar radiculopathy: Status: Acute Category: Medical Code(s): M54.16 - Radiculopathy, lumbar region (3) Chronic facial pain: Status: Chronic Category: Medical Code(s): R51.9 - Headache, unspecified; G89.29 - Other chronic pain Plan I will refill the patient's [place] and provide a 1 month supply of this medication. Patient will return to clinic in 1 month for reevaluation of symptoms and plan of care. Risks and benefits of the medication have been explained in detail to the patient. The patient does understand the risk of dependence on the medication when given over a prolonged period. Patient has been advised of risks of oversedation with the prescribed medication. Narcan has been offered to the paitent in the event of oversedation. Patient has been advised that a family member should also be educated regarding administration of Narcan. The patient has been advised to consult with his/her primary care provider and pharmacist regarding drug-drug interaction of medications currently prescribed. Patient has been prescribed a controlled substance after being counseled on the medication, medication safety, and possible side effects. Opioid contract was reviewed and signed by the patient, and that they have agreed to all of the terms set forth by our compliance program. Patient has been instructed to contact the clinic with any concerns before the next appointment. Dr. Santiago has reviewed this note and agrees with this plan of care. This note was dictated using voice recognition software and make contain errors or omissions.
[2023-10-20 11:09] VITALS: BP 131/77; PULSE 84; RESP 16; O2SAT 94; BMI 28.3
== END 2023-10-20 23:59 | disposition home or self-care (01) ==
PROVIDERS: PCP Family Medicine; Visit Provider Nurse Practitioner Family
DX: G89.29 Other chronic pain (principal); M51.36 Other intervertebral disc degeneration, lumbar region; M54.16 Radiculopathy, lumbar region
CPT/HCPCS: 99212; G0463

== ENCOUNTER 2023-11-19 09:13 | Outpatient (POV) | payer BC, MEDICARE, SELFPAY ==
[2023-11-19 09:35] VITALS: BP 115/74; PULSE 81; RESP 16; O2SAT 95; BMI 28.7
--- NOTE | 2023-11-19 09:42 | A.OFFVIS_ITS ---
[facility] Disclaimer: The information contained in this section may have been updated after the patient was seen, as this information can be updated by other users. Medical History (Updated 10/23/23 @ 15:05 by Candis Brenner MD) Complex sleep apnea syndrome Surgical History History of facial surgery History of hernia surgery Family History Other Diabetes Hypertension Social History Smoking Status: Never smoker alcohol intake: never substance use type: denies use current occupational status: retired Travel in the last 8 weeks: None household members: significant other housing: house marital status: number of children: 7 PM Subjective & Objective Subjective Subjective:: Patient is a pleasant 68-year-old male who presents today for medication refills. Today he rates his pain a 3 out of 10. He denies any new trauma or injury. Patient is currently managed with [place] 10 mg 4 times a day. He denies any side effects from this medication. His Lloyd has been reviewed and is appropriate. Patient does state that he is going to leave for his daughter's wedding at the beginning of next month. Review of Systems: General: No recent weight changes, no fever, no sleep disturbances Respiratory: No cough, no shortness of air, no recurring pulmonary infections Cardiovascular/peripheral vascular: No chest pain, no palpitations, no edema, no shortness of breath Gastrointestinal: No new onset incontinence, normal bowel movements reported Genitourinary: No new onset incontinence Musculoskeletal: Low back pain Psychiatric: [Normal mood/affect] Neurological: [Denies weakness in extremities], [denies balance issues] Pain at rest (0-10 scale): 3 Objective Objective:: Physical Exam: General: Alert and oriented x3, no acute distress, pleasant and cooperative Lungs: Respirations even and unlabored, symmetrical chest expansion Eyes: PERRL Musculoskeletal: Flexion and extension of lumbar [spine] somewhat guarded secondary to pain, [antalgic gait noted] Neurological: Speech clear, no gross sensory deficit Has patient had previous pain injection?: No Conservative treatment options previously tried: Home exercise plan Length of treatment: Longer than 6 weeks Meds Home Medications and Allergies Home Medications ?Medication ?Instructions ?Recorded ?Confirmed ?Type amlodipine 10 mg tablet 10 mg PO DAILY . 06/14/21 11/19/23 History benazepril 20 mg tablet 20 mg PO DAILY . 06/14/21 11/19/23 History metformin 500 mg/5 mL oral solution 500 mg PO BID Diabetes 06/14/21 11/19/23 His tory albuterol sulfate 90 mcg/actuation 1 - 2 puffs inhalation Q6HP PRN 08/01/21 11/19/23 Rx aerosol inhaler Shortness Of Breath #1 ea ibuprofen 800 mg tablet 800 mg PO TID PRN Moderate Pain 30 11/15/21 11/19/23 Rx days #240 tabs hydrocodone 10 mg-acetaminophen 1 tab PO QID #120 tabs 10/20/23 11/19/23 Rx 325 mg tablet New Prescriptions to Start Prescriptions: Allergies Allergy/AdvReac Type Severity Reaction Status Date / Time albuterol Allergy Severe breathing Verified 10/23/23 14:06 problems Assessment and Plan *Assessment and plan (1) Lumbar radiculopathy: Status: Acute Category: Medical Code(s): M54.16 - Radiculopathy, lumbar region (2) Degenerative disc disease, lumbar: Status: Acute Category: Medical Code(s): M51.36 - Other intervertebral disc degeneration, lumbar region Plan I will refill the patient's [place] and provide a 1 month supply of this medication. Patient will return to clinic in 1 month for reevaluation of symptoms and plan of care. Risks and benefits of the medication have been explained in detail to the patient. The patient does understand the risk of dependence on the medication when given over a prolonged period. Patient has been advised of risks of oversedation with the prescribed medication. Narcan has been offered to the paitent in the event of oversedation. Patient has been advised that a family member should also be educated regarding administration of Narcan. The patient has been advised to consult with his/her primary care provider and pharmacist regarding drug-drug interaction of medications currently prescribed. Patient has been prescribed a controlled substance after being counseled on the medication, medication safety, and possible side effects. Opioid contract was reviewed and signed by the patient, and that they have agreed to all of the terms set forth by our compliance program. Patient has been instructed to contact the clinic with any concerns before the next appointment. Dr. Santiago has reviewed this note and agrees with this plan of care. This note was dictated using voice recognition software and make contain errors or omissions.
== END 2023-11-19 23:59 | disposition home or self-care (01) ==
PROVIDERS: PCP Family Medicine; Visit Provider Nurse Practitioner Family
DX: M51.16 Intervertebral disc disorders with radiculopathy, lumbar region (principal); Z79.899 Other long term (current) drug therapy
CPT/HCPCS: 99212; G0463

== ENCOUNTER 2024-01-15 15:52 | Outpatient (POV) | payer MEDICARE, BC, SELFPAY ==
--- NOTE | 2024-01-15 15:56 | EXP.PAIN.SOA ---
[facility] Disclaimer: The information contained in this section may have been updated after the patient was seen, as this information can be updated by other users. Medical History (Updated 01/15/24 @ 15:58 by Jesenia Harmon APRN) Complex sleep apnea syndrome Surgical History History of facial surgery History of hernia surgery Family History Other Diabetes Hypertension Social History Smoking Status: Never smoker alcohol intake: never substance use type: denies use current occupational status: disabled Travel in the last 8 weeks: None household members: significant other housing: house marital status: number of children: 7 PM Subjective & Objective Subjective Subjective:: Patient is a pleasant 68-year-old male who presents today via telehealth visit for medication refill and follow-up. Today he rates his pain at 3 out of 10. He denies any new trauma or injury. Patient is currently managed with Wingina 10 mg 4 times a day. He denies any side effects. His Lloyd has been reviewed and is appropriate. Patient did do the telehealth visit at his home and did give verbal consent for this audio appointment. Patient had forgotten his appointment time this morning and missed it. Review of Systems: General: No recent weight changes, no fever, no sleep disturbances Respiratory: No cough, no shortness of air, no recurring pulmonary infections Cardiovascular/peripheral vascular: No chest pain, no palpitations, no edema, no shortness of breath Gastrointestinal: No new onset incontinence, normal bowel movements reported Genitourinary: No new onset incontinence Musculoskeletal: Low back pain Psychiatric: [Normal mood/affect] Neurological: [Denies weakness in extremities], [denies balance issues] Pain at rest (0-10 scale): 3 Objective Objective:: Physical Exam: General: Alert and oriented x3, no acute distress, pleasant and cooperative Lungs: Respirations even and unlabored, symmetrical chest expansion Eyes: PERRL Musculoskeletal: Flexion and extension of lumbar [spine] somewhat guarded secondary to pain, [antalgic gait noted] Neurological: Speech clear, no gross sensory deficit Has patient had previous pain injection?: No Conservative treatment options previously tried: Home exercise plan Length of treatment: Longer than 6 weeks Meds Home Medications and Allergies Home Medications ?Medication ?Instructions ?Recorded ?Confirmed ?Type amlodipine 10 mg tablet 10 mg PO DAILY . 06/14/21 12/24/23 History benazepril 20 mg tablet 20 mg PO DAILY . 06/14/21 12/24/23 History metformin 500 mg/5 mL oral solution 500 mg PO BID Diabetes 06/14/21 12/24/23 History albuterol sulfate 90 mcg/actuation 1 - 2 puffs inhalation Q6HP PRN 08/01/21 12/24/23 Rx aerosol inhaler Shortness Of Breath #1 ea ibuprofen 800 mg tablet 800 mg PO TID PRN Moderate Pain 30 11/15/21 12/24/23 Rx days #240 tabs hydrocodone 10 mg-acetaminophen 1 tab PO QID #20 tabs 12/04/23 12/24/23 Rx 325 mg tablet hydrocodone 10 mg-acetaminophen 1 tab PO QID #120 tabs 12/24/23 Rx 325 mg tablet New Prescriptions to Start Prescriptions: Allergies Allergy/AdvReac Type Severity Reaction Status Date / Time albuterol Allergy Severe breathing Verified 10/23/23 14:06 problems Assessment and Plan *Assessment and plan (1) Degenerative disc disease, lumbar: Status: Acute Qualifiers: Disc-related pain type: discogenic back pain and lower extremity pain Qualified Code(s): M51.362 - Other intervertebral disc degeneration, lumbar region with discogenic back pain and lower extremity pain Category: Medical Code(s): M51.36 - Other intervertebral disc degeneration, lumbar region Plan We will refill the patient's Wingina and provide a 1 month supply of this medication. Patient will return to clinic in 1 month for reevaluation of symptoms and plan of care. This visit did occur from . Risks and benefits of the medication have been explained in detail to the patient. The patient does understand the risk of dependence on the medication when given over a prolonged period. Patient has been advised of risks of oversedation with the prescribed medication. Narcan has been offered to the paitent in the event of oversedation. Patient has been advised that a family member should also be educated regarding administration of Narcan. The patient has been advised to consult with his/her primary care provider and pharmacist regarding drug-drug interaction of medications currently prescribed. Patient has been prescribed a controlled substance after being counseled on the medication, medication safety, and possible side effects. Opioid contract was reviewed and signed by the patient, and that they have agreed to all of the terms set forth by our compliance program. Patient has been instructed to contact the clinic with any concerns before the next appointment. Dr. Santiago has reviewed this note and agrees with this plan of care. This note was dictated using voice recognition software and make contain errors or omissions.
== END 2024-01-15 23:59 | disposition home or self-care (01) ==
PROVIDERS: Visit Provider Nurse Practitioner Family
DX: M51.362 Other intervertebral disc degeneration, lumbar region with discogenic back pain and lower extremity pain (principal)
CPT/HCPCS: 99212; G0463

== ENCOUNTER 2024-02-19 13:43 | Outpatient (POV) | payer MEDICARE, BC, SELFPAY ==
--- NOTE | 2024-02-19 14:07 | EXP.PAIN.SOA ---
[facility] Disclaimer: The information contained in this section may have been updated after the patient was seen, as this information can be updated by other users. Medical History (Updated 01/15/24 @ 15:58 by Jesenia Harmon APRN) Complex sleep apnea syndrome Surgical History History of facial surgery History of hernia surgery Family History Other Diabetes Hypertension Social History Smoking Status: Never smoker alcohol intake: never substance use type: denies use current occupational status: disabled Travel in the last 8 weeks: None household members: significant other housing: house marital status: number of children: 7 PM Subjective & Objective Subjective Subjective:: Patient is a pleasant 68-year-old male who presents today for 1 month follow-up and medication refill. Today he rates his pain a 3 out of 10. He states that he has been doing well overall. He is currently prescribed [place] 10 mg 4 times a day. He denies any side effects from this medication or changes to his pharmacy. His Lloyd has been reviewed and is appropriate. Review of Systems: General: No recent weight changes, no fever, no sleep disturbances Respiratory: No cough, no shortness of air, no recurring pulmonary infections Cardiovascular/peripheral vascular: No chest pain, no palpitations, no edema, no shortness of breath Gastrointestinal: No new onset incontinence, normal bowel movements reported Genitourinary: No new onset incontinence Musculoskeletal: Low back pain, facial pain Psychiatric: [Normal mood/affect] Neurological: [Denies weakness in extremities], [denies balance issues] Pain at rest (0-10 scale): 3 Objective Objective:: Physical Exam: General: Alert and oriented x3, no acute distress, pleasant and cooperative Lungs: Respirations even and unlabored, symmetrical chest expansion Eyes: PERRL Musculoskeletal: Flexion and extension of lumbar [spine] somewhat guarded secondary to pain, [antalgic gait noted] Neurological: Speech clear, no gross sensory deficit Has patient had previous pain injection?: No Conservative treatment options previously tried: Home exercise plan Length of treatment: Longer than 12 weeks Meds Home Medications and Allergies Home Medications ?Medication ?Instructions ?Recorded ?Confirmed ?Type amlodipine 10 mg tablet 10 mg PO DAILY . 06/14/21 12/24/23 History benazepril 20 mg tablet 20 mg PO DAILY . 06/14/21 12/24/23 History metformin 500 mg/5 mL oral solution 500 mg PO BID Diabetes 06/14/21 12/24/23 History albuterol sulfate 90 mcg/actuation 1 - 2 puffs inhalation Q6HP PRN 08/01/21 12/24/23 Rx aerosol inhaler Shortness Of Breath #1 ea ibuprofen 800 mg tablet 800 mg PO TID PRN Moderate Pain 30 11/15/21 12/24/23 Rx days #240 tabs hydrocodone 10 mg-acetaminophen 1 tab PO QID #20 tabs 12/04/23 12/24/23 Rx 325 mg tablet hydrocodone 10 mg-acetaminophen 1 tab PO QID #120 tabs 01/15/24 Rx 325 mg tablet New Prescriptions to Start Prescriptions: Allergies Allergy/AdvReac Type Severity Reaction Status Date / Time albuterol Allergy Severe breathing Verified 10/23/23 14:06 problems Assessment and Plan *Assessment and plan (1) Lumbar radiculopathy: Status: Acute Category: Medical Code(s): M54.16 - Radiculopathy, lumbar region (2) Degenerative disc disease, lumbar: Status: Acute Qualifiers: Disc-related pain type: discogenic back pain and lower extremity pain Qualified Code(s): M51.362 - Other intervertebral disc degeneration, lumbar region with discogenic back pain and lower extremity pain Category: Medical Code(s): M51.36 - Other intervertebral disc degeneration, lumbar region Plan I will refill the patient's [place] and provide a 1 month supply of this medication. Patient will return to clinic in 1 month for reevaluation of symptoms and plan of care. Risks and benefits of the medication have been explained in detail to the patient. The patient does understand the risk of dependence on the medication when given over a prolonged period. Patient has been advised of risks of oversedation with the prescribed medication. Narcan has been offered to the paitent in the event of oversedation. Patient has been advised that a family member should also be educated regarding administration of Narcan. The patient has been advised to consult with his/her primary care provider and pharmacist regarding drug-drug interaction of medications currently prescribed. Patient has been prescribed a controlled substance after being counseled on the medication, medication safety, and possible side effects. Opioid contract was reviewed and signed by the patient, and that they have agreed to all of the terms set forth by our compliance program. Patient has been instructed to contact the clinic with any concerns before the next appointment. Dr. Santiago has reviewed this note and agrees with this plan of care. This note was dictated using voice recognition software and make contain errors or omissions.
[2024-02-19 14:28] VITALS: BP 124/83; PULSE 88; O2SAT 97; BMI 28.3
== END 2024-02-19 23:59 | disposition home or self-care (01) ==
PROVIDERS: PCP Family Medicine; Visit Provider Nurse Practitioner Family
DX: M51.16 Intervertebral disc disorders with radiculopathy, lumbar region (principal)
CPT/HCPCS: 99212; G0463

== ENCOUNTER 2024-03-18 12:00 | Outpatient (POV) | payer MEDICARE, BC, SELFPAY ==
[2024-03-18 12:10] VITALS: BP 119/76; PULSE 94; RESP 16; O2SAT 94; BMI 28.7
--- NOTE | 2024-03-18 12:29 | EXP.PAIN.SOA ---
[facility] Disclaimer: The information contained in this section may have been updated after the patient was seen, as this information can be updated by other users. Medical History (Updated 01/15/24 @ 15:58 by Jesenia Harmon APRN) Complex sleep apnea syndrome Surgical History History of facial surgery History of hernia surgery Family History Other Diabetes Hypertension Social History Smoking Status: Never smoker alcohol intake: never substance use type: denies use current occupational status: other Travel in the last 8 weeks: None household members: significant other housing: house marital status: number of children: 7 PM Subjective & Objective Subjective Subjective:: Patient is a pleasant 68-year-old male who presents today for medication refill and follow-up. Today he rates his pain a 3 out of 10. Patient denies any new trauma or injury. Patient does state that this morning his pain was a little worse and he did actually take one of his old gabapentin's and it did seem to help ease it off a little bit more. Patient is requesting if we can start back that medication. Patient is currently managed with [place] 10 mg 4 times a day. He denies any side effects from this medication. His Lloyd has been reviewed and is appropriate. Review of Systems: General: No recent weight changes, no fever, no sleep disturbances Respiratory: No cough, no shortness of air, no recurring pulmonary infections Cardiovascular/peripheral vascular: No chest pain, no palpitations, no edema, no shortness of breath Gastrointestinal: No new onset incontinence, normal bowel movements reported Genitourinary: No new onset incontinence Musculoskeletal: Low back pain Psychiatric: [Normal mood/affect] Neurological: [Denies weakness in extremities], [denies balance issues] Pain at rest (0-10 scale): 3 Objective Objective:: Physical Exam: General: Alert and oriented x3, no acute distress, pleasant and cooperative Lungs: Respirations even and unlabored, symmetrical chest expansion Eyes: PERRL Musculoskeletal: Flexion and extension of lumbar [spine] somewhat guarded secondary to pain, [antalgic gait noted] Neurological: Speech clear, no gross sensory deficit Has patient had previous pain injection?: No Conservative treatment options previously tried: Home exercise plan Length of treatment: Longer than 12 weeks Meds Home Medications and Allergies Home Medications ?Medication ?Instructions ?Recorded ?Confirmed ?Type amlodipine 10 mg tablet 10 mg PO DAILY . 06/14/21 03/18/24 History benazepril 20 mg tablet 20 mg PO DAILY . 06/14/21 03/18/24 History metformin 500 mg/5 mL oral solution 500 mg PO BID Diabetes 06/14/21 03/18/24 History albuterol sulfate 90 mcg/actuation 1 - 2 puffs inhalation Q6HP PRN 08/01/21 03/18/24 Rx aerosol inhaler Shortness Of Breath #1 ea ibuprofen 800 mg tablet 800 mg PO TID PRN Moderate Pain 30 11/15/21 03/18/24 Rx days #240 tabs hydrocodone 10 mg-acetaminophen 1 tab PO QID #20 tabs 12/04/23 03/18/24 Rx 325 mg tablet hydrocodone 10 mg-acetaminophen 1 tab PO QID #120 tabs 02/19/24 03/18/24 Rx 325 mg tablet New Prescriptions to Start Prescriptions: Allergies Allergy/AdvReac Type Severity Reaction Status Date / Time albuterol Allergy Severe breathing Verified 10/23/23 14:06 problems Assessment and Plan *Assessment and plan (1) Lumbar radiculopathy: Status: Acute Category: Medical Code(s): M54.16 - Radiculopathy, lumbar region (2) Degenerative disc disease, lumbar: Status: Acute Qualifiers: Disc-related pain type: discogenic back pain and lower extremity pain Qualified Code(s): M51.362 - Other intervertebral disc degeneration, lumbar region with discogenic back pain and lower extremity pain Category: Medical Code(s): M51.36 - Other intervertebral disc degeneration, lumbar region Plan Will refill the patient's [place]ral and provide a 1 month supply of this and his prior gabapentin at 100 mg daily. Patient will return to clinic in 1 month for reevaluation of symptoms and plan of care. Risks and benefits of the medication have been explained in detail to the patient. The patient does understand the risk of dependence on the medication when given over a prolonged period. Patient has been advised of risks of oversedation with the prescribed medication. Narcan has been offered to the paitent in the event of oversedation. Patient has been advised that a family member should also be educated regarding administration of Narcan. The patient has been advised to consult with his/her primary care provider and pharmacist regarding drug-drug interaction of medications currently prescribed. Patient has been prescribed a controlled substance after being counseled on the medication, medication safety, and possible side effects. Opioid contract was reviewed and signed by the patient, and that they have agreed to all of the terms set forth by our compliance program. Patient has been instructed to contact the clinic with any concerns before the next appointment. Dr. Santiago has reviewed this note and agrees with this plan of care. This note was dictated using voice recognition software and make contain errors or omissions.
== END 2024-03-18 23:59 | disposition home or self-care (01) ==
PROVIDERS: PCP Family Medicine; Visit Provider Nurse Practitioner Family
DX: M51.16 Intervertebral disc disorders with radiculopathy, lumbar region (principal)
CPT/HCPCS: 99212; G0463

== ENCOUNTER 2024-04-16 14:27 | Outpatient (POV) | payer BC, MEDICARE, SELFPAY ==
[2024-04-16 15:11] VITALS: BP 121/68; PULSE 95; RESP 16; TEMP 36.3; O2SAT 97; BMI 28.1
--- NOTE | 2024-04-16 15:18 | EXP.PAIN.SOA ---
[facility] Disclaimer: The information contained in this section may have been updated after the patient was seen, as this information can be updated by other users. Medical History Complex sleep apnea syndrome Surgical History History of facial surgery History of hernia surgery Family History Other Diabetes Hypertension Social History Smoking Status: Never smoker alcohol intake: never substance use type: denies use current occupational status: other Travel in the last 8 weeks: None household members: significant other housing: house marital status: number of children: 7 PM Subjective & Objective Subjective Subjective:: Patient is a pleasant 68-year-old male who presents today for medication refill and follow-up. Today he rates his pain a 3 out of 10. He denies any new trauma or injury. He is currently managed with [place] 10 mg 4 times a day and gabapentin 100 mg daily. He denies any side effects from this medication. His Lloyd has been reviewed and is appropriate. Review of Systems: General: No recent weight changes, no fever, no sleep disturbances Respiratory: No cough, no shortness of air, no recurring pulmonary infections Cardiovascular/peripheral vascular: No chest pain, no palpitations, no edema, no shortness of breath Gastrointestinal: No new onset incontinence, normal bowel movements reported Genitourinary: No new onset incontinence Musculoskeletal: Low back pain Psychiatric: [Normal mood/affect] Neurological: [Denies weakness in extremities], [denies balance issues] Pain at rest (0-10 scale): 3 Objective Objective:: Physical Exam: General: Alert and oriented x3, no acute distress, pleasant and cooperative Lungs: Respirations even and unlabored, symmetrical chest expansion Eyes: PERRL Musculoskeletal: Flexion and extension of lumbar [spine] somewhat guarded secondary to pain, [antalgic gait noted] Neurological: Speech clear, no gross sensory deficit Has patient had previous pain injection?: No Conservative treatment options previously tried: Prescription medications Length of treatment: Longer than 12 weeks Meds Home Medications and Allergies Home Medications ?Medication ?Instructions ?Recorded ?Confirmed ?Type amlodipine 10 mg tablet 10 mg PO DAILY . 03/03/22 01/03/25 History benazepril 20 mg tablet 20 mg PO DAILY . 06/14/21 04/16/24 History metformin 500 mg/5 mL oral solution 500 mg PO BID Diabetes 06/14/21 04/16/24 History albuterol sulfate 90 mcg/actuation 1 - 2 puffs inhalation Q6HP PRN 08/01/21 04/16/24 Rx aerosol inhaler Shortness Of Breath #1 ea ibuprofen 800 mg tablet 800 mg PO TID PRN Moderate Pain 30 11/15/21 04/16/24 Rx days #240 tabs hydrocodone 10 mg-acetaminophen 1 tab PO QID #20 tabs 12/04/23 04/16/24 Rx 325 mg tablet gabapentin 100 mg capsule 100 mg PO DAILY #30 caps 03/18/24 04/16/24 Rx hydrocodone 10 mg-acetaminophen 1 tab PO QID #120 tabs 03/18/24 04/16/24 Rx 325 mg tablet New Prescriptions to Start Prescriptions: Allergies Allergy/AdvReac Type Severity Reaction Status Date / Time albuterol Allergy Severe breathing Verified 10/23/23 14:06 problems Assessment and Plan *Assessment and plan (1) Lumbar radiculopathy: Status: Acute Category: Medical Code(s): M54.16 - Radiculopathy, lumbar region (2) Degenerative disc disease, lumbar: Status: Acute Qualifiers: Disc-related pain type: discogenic back pain and lower extremity pain Qualified Code(s): M51.362 - Other intervertebral disc degeneration, lumbar region with discogenic back pain and lower extremity pain Category: Medical Code(s): M51.369 - Other intervertebral disc degeneration, lumbar region without mention of lumbar back pain or lower extremity pain Plan I will refill the patient's Holden and gabapentin and provide a 1 month supply of this medication. Patient will return to clinic in 1 month for reevaluation of symptoms and plan of care. Risks and benefits of the medication have been explained in detail to the patient. The patient does understand the risk of dependence on the medication when given over a prolonged period. Patient has been advised of risks of oversedation with the prescribed medication. Narcan has been offered to the paitent in the event of oversedation. Patient has been advised that a family member should also be educated regarding administration of Narcan. The patient has been advised to consult with his/her primary care provider and pharmacist regarding drug-drug interaction of medications currently prescribed. Patient has been prescribed a controlled substance after being counseled on the medication, medication safety, and possible side effects. Opioid contract was reviewed and signed by the patient, and that they have agreed to all of the terms set forth by our compliance program. A UDS is needed to verify patient's compliance with our office pain contract. This is ordered based off specific treatments related to chronic pain with the potential to abuse certain medications. Patient has been instructed to contact the clinic with any concerns before the next appointment. Dr. Santiago has reviewed this note and agrees with this plan of care. This note was dictated using voice recognition software and make contain errors or omissions.
== END 2024-04-16 23:59 | disposition home or self-care (01) ==
PROVIDERS: PCP Family Medicine; Visit Provider Nurse Practitioner Family
DX: M51.16 Intervertebral disc disorders with radiculopathy, lumbar region (principal)
CPT/HCPCS: 99212; G0463

== ENCOUNTER 2024-05-17 11:29 | Outpatient (POV) | payer BC, MEDICARE, SELFPAY ==
--- NOTE | 2024-05-17 11:56 | EXP.PAIN.SOA ---
[facility] Disclaimer: The information contained in this section may have been updated after the patient was seen, as this information can be updated by other users. Medical History Complex sleep apnea syndrome Surgical History History of facial surgery History of hernia surgery Family History Other Diabetes Hypertension Social History Smoking Status: Never smoker alcohol intake: never substance use type: denies use current occupational status: other Travel in the last 8 weeks: None household members: significant other housing: house marital status: number of children: 7 Have you lived/traveled outside US in past 30 days?: No Contact w/someone who lives/traveled outside US past 30 days?: No Exposure to someone with infectious disease in past 14 days?: No Do you have a fever (greater than 100.4 F or 38 C)?: No Have you tested positive for COVID-19: No Exposed to someone with COVID-19 in past 14 days?: No Do you have a sore throat?: No Do you have a cough?: No Do you have any weakness?: No Do you have any diarrhea?: No Are you experiencing any unusual bleeding?: No Do you have any muscle aches/pain?: No Do you have any abdominal pain?: No Are you experiencing loss of taste or smell?: No PM Subjective & Objective Subjective Subjective:: Patient is a pleasant 68-year-old male who presents today for medication refill and follow-up. Today he rates his pain at 3 out of 10. He denies any new changes from her last appointment. Patient is currently managed with [place] 10 mg 4 times a day and gabapentin 100 mg daily. He denies any side effects. His Lloyd has been reviewed and is appropriate.\ Review of Systems: General: No recent weight changes, no fever, no sleep disturbances Respiratory: No cough, no shortness of air, no recurring pulmonary infections Cardiovascular/peripheral vascular: No chest pain, no palpitations, no edema, no shortness of breath Gastrointestinal: No new onset incontinence, normal bowel movements reported Genitourinary: No new onset incontinence Musculoskeletal: Low back pain, facial pain Psychiatric: [Normal mood/affect] Neurological: [Denies weakness in extremities], [denies balance issues] Pain at rest (0-10 scale): 3 Objective Objective:: Physical Exam: General: Alert and oriented x3, no acute distress, pleasant and cooperative Lungs: Respirations even and unlabored, symmetrical chest expansion Eyes: PERRL Musculoskeletal: Flexion and extension of lumbar [spine] somewhat guarded secondary to pain, [antalgic gait noted] Neurological: Speech clear, no gross sensory deficit Has patient had previous pain injection?: No Conservative treatment options previously tried: Prescription medications Length of treatment: Longer than 12 weeks Meds Home Medications and Allergies Home Medications ?Medication ?Instructions ?Recorded ?Confirmed ?Type amlodipine 10 mg tablet 10 mg PO DAILY . 06/14/21 04/16/24 History benazepril 20 mg tablet 20 mg PO DAILY . 06/14/21 04/16/24 History metformin 500 mg/5 mL oral solution 500 mg PO BID Diabetes 06/14/21 04/16/24 History albuterol sulfate 90 mcg/actuation 1 - 2 puffs inhalation Q6HP PRN 08/01/21 04/16/24 Rx aerosol inhaler Shortness Of Breath #1 ea ibuprofen 800 mg tablet 800 mg PO TID PRN Moderate Pain 30 11/15/21 04/16/24 Rx days #240 tabs hydrocodone 10 mg-acetaminophen 1 tab PO QID #20 tabs 12/04/23 04/16/24 Rx 325 mg tablet gabapentin 100 mg capsule 100 mg PO DAILY #30 caps 04/16/24 Rx hydrocodone 10 mg-acetaminophen 1 tab PO QID #120 tabs 04/16/24 Rx 325 mg tablet New Prescriptions to Start Prescriptions: Allergies Allergy/AdvReac Type Severity Reaction Status Date / Time albuterol Allergy Severe breathing Verified 10/23/23 14:06 problems Assessment and Plan *Assessment and plan (1) Lumbar radiculopathy: Status: Acute Category: Medical Code(s): M54.16 - Radiculopathy, lumbar region (2) Degenerative disc disease, lumbar: Status: Acute Qualifiers: Disc-related pain type: discogenic back pain and lower extremity pain Qualified Code(s): M51.362 - Other intervertebral disc degeneration, lumbar region with discogenic back pain and lower extremity pain Category: Medical Code(s): M51.369 - Other intervertebral disc degeneration, lumbar region without mention of lumbar back pain or lower extremity pain Plan I will refill the patient's [place] and gabapentin and provide a 1 month supply of this medication. Patient will return to clinic in 1 month. Risks and benefits of the medication have been explained in detail to the patient. The patient does understand the risk of dependence on the medication when given over a prolonged period. Patient has been advised of risks of oversedation with the prescribed medication. Narcan has been offered to the paitent in the event of oversedation. Patient has been advised that a family member should also be educated regarding administration of Narcan. The patient has been advised to consult with his/her primary care provider and pharmacist regarding drug-drug interaction of medications currently prescribed. Patient has been prescribed a controlled substance after being counseled on the medication, medication safety, and possible side effects. Opioid contract was reviewed and signed by the patient, and that they have agreed to all of the terms set forth by our compliance program. A UDS is needed to verify patient's compliance with our office pain contract. This is ordered based off specific treatments related to chronic pain with the potential to abuse certain medications. Patient has been instructed to contact the clinic with any concerns before the next appointment. Dr. Santiago has reviewed this note and agrees with this plan of care. This note was dictated using voice recognition software and make contain errors or omissions.
[2024-05-17 14:47] VITALS: BP 150/78; PULSE 82; RESP 14; O2SAT 97; BMI 28.1
== END 2024-05-17 23:59 | disposition home or self-care (01) ==
PROVIDERS: PCP Family Medicine; Visit Provider Nurse Practitioner Family
DX: M51.16 Intervertebral disc disorders with radiculopathy, lumbar region (principal)
CPT/HCPCS: 99212; G0463

== ENCOUNTER 2024-06-14 11:00 | Outpatient (POV) | payer BC, MEDICARE, SELFPAY ==
--- NOTE | 2024-06-14 11:26 | A.OFFVIS_ITS ---
[facility] Disclaimer: The information contained in this section may have been updated after the patient was seen, as this information can be updated by other users. Medical History Complex sleep apnea syndrome Surgical History History of facial surgery History of hernia surgery Family History Other Diabetes Hypertension Social History Smoking Status: Never smoker alcohol intake: never substance use type: denies use current occupational status: other Travel in the last 8 weeks: None household members: significant other housing: house marital status: number of children: 7 Have you lived/traveled outside US in past 30 days?: No Contact w/someone who lives/traveled outside US past 30 days?: No Exposure to someone with infectious disease in past 14 days?: No Do you have a fever (greater than 100.4 F or 38 C)?: No Have you tested positive for COVID-19: No Exposed to someone with COVID-19 in past 14 days?: No Do you have a sore throat?: No Do you have a cough?: No Do you have any weakness?: No Do you have any diarrhea?: No Are you experiencing any unusual bleeding?: No Do you have any muscle aches/pain?: No Do you have any abdominal pain?: No Are you experiencing loss of taste or smell?: No PM Subjective & Objective Subjective Subjective:: Patient is a pleasant 69-year-old male who presents today for monthly medication refill. He rates his pain at 3 out of 10 and denies any new falls or injuries. He is doing well with his [place] 10 mg 4 times a day and gabapentin 100 mg daily. He denies any side effects. His Lloyd has been reviewed and is appropriate. Review of Systems: General: No recent weight changes, no fever, no sleep disturbances Respiratory: No cough, no shortness of air, no recurring pulmonary infections Cardiovascular/peripheral vascular: No chest pain, no palpitations, no edema, no shortness of breath Gastrointestinal: No new onset incontinence, normal bowel movements reported Genitourinary: No new onset incontinence Musculoskeletal: Low back pain Psychiatric: [Normal mood/affect] Neurological: [Denies weakness in extremities], [denies balance issues] Pain at rest (0-10 scale): 3 Objective Objective:: Physical Exam: General: Alert and oriented x3, no acute distress, pleasant and cooperative Lungs: Respirations even and unlabored, symmetrical chest expansion Eyes: PERRL Musculoskeletal: Flexion and extension of lumbar [spine] somewhat guarded secondary to pain, [antalgic gait noted] Neurological: Speech clear, no gross sensory deficit Has patient had previous pain injection?: No Conservative treatment options previously tried: Home exercise plan Length of treatment: Longer than 12 weeks Meds Home Medications and Allergies Home Medications ?Medication ?Instructions ?Recorded ?Confirmed ?Type amlodipine 10 mg tablet 10 mg PO DAILY . 06/14/21 05/17/24 History benazepril 20 mg tablet 20 mg PO DAILY . 06/14/21 05/17/24 History metformin 500 mg/5 mL oral solution 500 mg PO BID Diabetes 06/14/21 05/17/24 History albuterol sulfate 90 mcg/actuation 1 - 2 puffs inhalation Q6HP PRN 08/01/21 05/17/24 Rx aerosol inhaler Shortness Of Breath #1 ea ibuprofen 800 mg tablet 800 mg PO TID PRN Moderate Pain 30 11/15/21 05/17/24 Rx days #240 tabs hydrocodone 10 mg-acetaminophen 1 tab PO QID #20 tabs 12/04/23 05/17/24 Rx 325 mg tablet gabapentin 100 mg capsule 100 mg PO DAILY #30 caps 05/17/24 Rx hydrocodone 10 mg-acetaminophen 1 tab PO QID #120 tabs 05/17/24 Rx 325 mg tablet New Prescriptions to Start Prescriptions: Allergies Allergy/AdvReac Type Severity Reaction Status Date / Time albuterol Allergy Severe breathing Verified 10/23/23 14:06 problems Assessment and Plan *Assessment and plan (1) Lumbar radiculopathy: Status: Acute Category: Medical Code(s): M54.16 - Radiculopathy, lumbar region (2) Degenerative disc disease, lumbar: Status: Acute Qualifiers: Disc-related pain type: discogenic back pain and lower extremity pain Qualified Code(s): M51.362 - Other intervertebral disc degeneration, lumbar region with discogenic back pain and lower extremity pain Category: Medical Code(s): M51.369 - Other intervertebral disc degeneration, lumbar region without mention of lumbar back pain or lower extremity pain Plan We will refill his [place] and gabapentin and provide a 1 month supply of this medication. He will return to clinic in 1 month. Risks and benefits of the medication have been explained in detail to the patien t. The patient does understand the risk of dependence on the medication when given over a prolonged period. Patient has been advised of risks of oversedation with the prescribed medication. Narcan has been offered to the paitent in the event of oversedation. Patient has been advised that a family member should also be educated regarding administration of Narcan. The patient has been advised to consult with his/her primary care provider and pharmacist regarding drug-drug interaction of medications currently prescribed. Patient has been prescribed a controlled substance after being counseled on the medication, medication safety, and possible side effects. Opioid contract was reviewed and signed by the patient, and that they have agreed to all of the terms set forth by our compliance program. A UDS is needed to verify patient's compliance with our office pain contract. This is ordered based off specific treatments related to chronic pain with the potential to abuse certain medications. Patient has been instructed to contact the clinic with any concerns before the next appointment. Dr. Santiago has reviewed this note and agrees with this plan of care. This note was dictated using voice recognition software and make contain errors or omissions.
[2024-06-14 12:18] VITALS: BP 113/71; PULSE 87; RESP 18; O2SAT 97; BMI 27.8
== END 2024-06-14 23:59 | disposition home or self-care (01) ==
PROVIDERS: PCP Family Medicine; Visit Provider Nurse Practitioner Family
DX: M51.16 Intervertebral disc disorders with radiculopathy, lumbar region (principal)
CPT/HCPCS: 99212; G0463

== ENCOUNTER 2024-07-14 14:02 | Outpatient (POV) | payer BC, MEDICARE, SELFPAY ==
--- NOTE | 2024-07-14 14:39 | EXP.PAIN.SOA ---
[facility] Disclaimer: The information contained in this section may have been updated after the patient was seen, as this information can be updated by other users. Medical History Complex sleep apnea syndrome Surgical History History of facial surgery History of hernia surgery Family History Other Diabetes Hypertension Social History Smoking Status: Never smoker alcohol intake: never substance use type: denies use current occupational status: other Travel in the last 8 weeks: None household members: significant other housing: house marital status: number of children: 7 PM Subjective & Objective Subjective Subjective:: Patient is a pleasant 69-year-old male who presents today for medication refill and follow-up. Patient rates his pain today at a 3 out of 10. He denies any new trauma or injury. He is doing well with his current medicines of gabapentin 100 mg daily and [place] 10 mg 4 times a day. He denies any changes to his pharmacy. His Lloyd has been reviewed and is appropriate. Review of Systems: General: No recent weight changes, no fever, no sleep disturbances Respiratory: No cough, no shortness of air, no recurring pulmonary infections Cardiovascular/peripheral vascular: No chest pain, no palpitations, no edema, no shortness of breath Gastrointestinal: No new onset incontinence, normal bowel movements reported Genitourinary: No new onset incontinence Musculoskeletal: Low back pain, facial pain Psychiatric: [Normal mood/affect] Neurological: [Denies weakness in extremities], [denies balance issues] Pain at rest (0-10 scale): 3 Objective Objective:: Physical Exam: General: Alert and oriented x3, no acute distress, pleasant and cooperative Lungs: Respirations even and unlabored, symmetrical chest expansion Eyes: PERRL Musculoskeletal: Flexion and extension of lumbar [spine] somewhat guarded secondary to pain, [antalgic gait noted] Neurological: Speech clear, no gross sensory deficit Has patient had previous pain injection?: No Conservative treatment options previously tried: Home exercise plan Length of treatment: Longer than 12 weeks Meds Home Medications and Allergies Home Medications ?Medication ?Instructions ?Recorded ?Confirmed ?Type amlodipine 10 mg tablet 10 mg PO DAILY . 06/14/21 06/14/24 History benazepril 20 mg tablet 20 mg PO DAILY . 06/14/21 06/14/24 History metformin 500 mg/5 mL oral solution 500 mg PO BID Diabetes 06/14/21 06/14/24 History albuterol sulfate 90 mcg/actuation 1 - 2 puffs inhalation Q6HP PRN 08/01/21 06/14/24 Rx aerosol inhaler Shortness Of Breath #1 ea ibuprofen 800 mg tablet 800 mg PO TID PRN Moderate Pain 30 11/15/21 06/14/24 Rx days #240 tabs hydrocodone 10 mg-acetaminophen 1 tab PO QID #20 tabs 12/04/23 06/14/24 Rx 325 mg tablet gabapentin 100 mg capsule 100 mg PO DAILY #30 caps 06/14/24 Rx hydrocodone 10 mg-acetaminophen 1 tab PO QID #120 tabs 06/14/24 Rx 325 mg tablet New Prescriptions to Start Prescriptions: Allergies Allergy/AdvReac Type Severity Reaction Status Date / Time albuterol Allergy Severe breathing Verified 10/23/23 14:06 problems Assessment and Plan *Assessment and plan (1) Degenerative disc disease, lumbar: Status: Acute Qualifiers: Disc-related pain type: discogenic back pain and lower extremity pain Qualified Code(s): M51.362 - Other intervertebral disc degeneration, lumbar region with discogenic back pain and lower extremity pain Category: Medical Code(s): M51.369 - Other intervertebral disc degeneration, lumbar region without mention of lumbar back pain or lower extremity pain (2) Lumbar radiculopathy: Status: Acute Category: Medical Code(s): M54.16 - Radiculopathy, lumbar region (3) Chronic facial pain: Status: Chronic Category: Medical Code(s): R51.9 - Headache, unspecified; G89.29 - Other chronic pain Plan I will refill his [place] and gabapentin and provide a 1 month supply of these medications. Patient will return to clinic in 1 month for reevaluation of symptoms and plan of care. Patient has been instructed to contact the clinic with any concerns before the next appointment. Dr. Santiago has reviewed this note and agrees with this plan of care. This note was dictated using voice recognition software and make contain errors or omissions. All injections are used with Lidocaine, Bupivacaine and Depo Medrol. Occasionally urine drug screen is needed to verify patient's compliance with our office pain contract. This is ordered based off specific treatments related to chronic pain with the potential to abuse certain medications.
[2024-07-14 15:25] VITALS: BP 132/76; PULSE 84; RESP 18; O2SAT 96; BMI 28.3
== END 2024-07-14 23:59 | disposition home or self-care (01) ==
PROVIDERS: PCP Psychiatry & Neurology Sleep Medicine; Visit Provider Nurse Practitioner Family
DX: M51.16 Intervertebral disc disorders with radiculopathy, lumbar region (principal); R51.9 Headache, unspecified; G89.29 Other chronic pain
CPT/HCPCS: 99212; G0463

== ENCOUNTER 2024-08-12 14:10 | Outpatient (POV) | payer BC, MEDICARE, SELFPAY ==
--- OUTSIDE RECORDS SUMMARY | 2024-08-12 14:15 | XMS_ITS ---
Author Organization Unknown TREATMENT PLAN Planned Care Start Date Provider Encounter for Check-up [id number] [facility]
--- NOTE | 2024-08-12 15:13 | EXP.PAIN.SOA ---
[facility] Disclaimer: The information contained in this section may have been updated after the patient was seen, as this information can be updated by other users. Medical History Complex sleep apnea syndrome Surgical History History of facial surgery History of hernia surgery Family History Other Diabetes Hypertension Social History Smoking Status: Never smoker alcohol intake: never substance use type: denies use current occupational status: retired Travel in the last 8 weeks?: None household members: significant other housing: house marital status: number of children: 7 PM Subjective & Objective Subjective Subjective:: Patient is a pleasant 69-year-old male who presents today for medication refill and follow-up. Today he rates his pain a 3 out of 10. He denies any new trauma or injury. He is currently doing gabapentin 100 mg daily and [place] 10 mg 4 times a day. He denies any side effects from this medication. His Lloyd has been reviewed and is appropriate. Review of Systems: General: No recent weight changes, no fever, no sleep disturbances Respiratory: No cough, no shortness of air, no recurring pulmonary infections Cardiovascular/peripheral vascular: No chest pain, no palpitations, no edema, no shortness of breath Gastrointestinal: No new onset incontinence, normal bowel movements reported Genitourinary: No new onset incontinence Musculoskeletal: Low back pain Psychiatric: [Normal mood/affect] Neurological: [Denies weakness in extremities], [denies balance issues] Pain at rest (0-10 scale): 3 Objective Objective:: Physical Exam: General: Alert and oriented x3, no acute distress, pleasant and cooperative Lungs: Respirations even and unlabored, symmetrical chest expansion Eyes: PERRL Musculoskeletal: Flexion and extension of lumbar [spine] somewhat guarded secondary to pain, [antalgic gait noted] Neurological: Speech clear, no gross sensory deficit Has patient had previous pain injection?: No Conservative treatment options previously tried: Prescription medications Length of treatment: Longer than 12 weeks Meds Home Medications and Allergies Home Medications ?Medication ?Instructions ?Recorded ?Confirmed ?Type amlodipine 10 mg tablet 10 mg PO DAILY . 06/14/21 07/14/24 History benazepril 20 mg tablet 20 mg PO DAILY . 06/14/21 07/14/24 History metformin 500 mg/5 mL oral solution 500 mg PO BID Diabetes 06/14/21 07/14/24 History albuterol sulfate 90 mcg/actuation 1 - 2 puffs inhalation Q6HP PRN 08/01/21 07/14/24 Rx aerosol inhaler Shortness Of Breath #1 ea ibuprofen 800 mg tablet 800 mg PO TID PRN Moderate Pain 30 11/15/21 07/14/24 Rx days #240 tabs hydrocodone 10 mg-acetaminophen 1 tab PO QID #20 tabs 12/04/23 07/14/24 Rx 325 mg tablet gabapentin 100 mg capsule 100 mg PO DAILY #30 caps 07/14/24 Rx hydrocodone 10 mg-acetaminophen 1 tab PO QID #120 tabs 07/14/24 Rx 325 mg tablet New Prescriptions to Start Prescriptions: Allergies Allergy/AdvReac Type Severity Reaction Status Date / Time albuterol Allergy Severe breathing Verified 10/23/23 14:06 problems Assessment and Plan *Assessment and plan (1) Lumbar radiculopathy: Status: Acute Category: Medical Code(s): M54.16 - Radiculopathy, lumbar region (2) Degenerative disc disease, lumbar: Status: Acute Qualifiers: Disc-related pain type: discogenic back pain and lower extremity pain Qualified Code(s): M51.362 - Other intervertebral disc degeneration, lumbar region with discogenic back pain and lower extremity pain Category: Medical Code(s): M51.369 - Other intervertebral disc degeneration, lumbar region without mention of lumbar back pain or lower extremity pain Plan I will refill the patient's [place] and gabapentin and provide a 1 month supply of these medications. Patient will return to clinic in 1 month for reevaluation of symptoms and plan of care. Risks and benefits of the medication have been explained in detail to the patient. The patient does understand the risk of dependence on the medication when given over a prolonged period. Patient has been advised of risks of oversedation with the prescribed medication. Narcan has been offered to the paitent in the event of oversedation. Patient has been advised that a family member should also be educated regarding administration of Narcan. The patient has been advised to consult with his/her primary care provider and pharmacist regarding drug-drug interaction of medications currently prescribed. Patient has been prescribed a controlled substance after being counseled on the medication, medication safety, and possible side effects. Opioid contract was reviewed and signed by the patient, and that they have agreed to all of the terms set forth by our compliance program. A UDS is needed to verify patient's compliance with our office pain contract. This is ordered based off specific treatments related to chronic pain with the potential to abuse certain medications. Patient has been instructed to contact the clinic with any concerns before the next appointment. Dr. Santiago has reviewed this note and agrees with this plan of care. This note was dictated using voice recognition software and make contain errors or omissions.
[2024-08-12 15:29] VITALS: BP 121/68; PULSE 75; RESP 14; O2SAT 96; BMI 28.3
== END 2024-08-12 23:59 | disposition home or self-care (01) ==
PROVIDERS: PCP Family Medicine; Visit Provider Nurse Practitioner Family
DX: M51.16 Intervertebral disc disorders with radiculopathy, lumbar region (principal)
CPT/HCPCS: 99212; G0463

== ENCOUNTER 2024-09-13 09:13 | Outpatient (CLI) | payer MEDICARE, BC, SELFPAY ==
[2024-09-13 10:50] LABS: Basophils # 0.1 K/mm3 (0-0.2); Basophils % 0.8 % (0.1-2.0); Eosinophils # 0.2 Kmm3 (0.0-0.4); Eosinophils % 2.3 % (0.1-12.0); Hematocrit 41.1 % (42.0-52.0); Hemoglobin 13.9 g/dL (14.1-18.0); Immature Granulocytes # 0.02 10^3uL; Immature Granulocytes % 0.2 %; Lymphocytes # 4.9 K/mm3 (0.7-4.5); Lymphocytes % 47.4 % (10-50); Mean Corpuscular HGB Conc 33.8 g/dL (31.8-35.4); Mean Corpuscular Hemoglobin 30.2 pg (27.0-31.2); Mean Corpuscular Volume 89.3 fl (80-94); Mean Platelet Volume 10.3 fl (7.4-10.4); Monocytes # 0.9 K/mm3 (0.1-1.0); Monocytes % 8.7 % (1.7-9.3); Neutrophils # 4.2 K/mm3 (1.8-7.8); Neutrophils % 40.6 % (37.0-80.0); Nucleated Red Blood Cells # 0 10^3/uL; Nucleated Red Blood Cells % 0 %; Platelet Count 347 K/mm3 (142-424); Red Cell Distribution Width 12.3 % (11.5-17.5); Red Cell Distribution Width-SD 40.2 fL; White Blood Count 10.3 K/mm3 (4.8-10.8)
[2024-09-13 11:00] LABS: Creatinine,Urine Random 153 mg/dL (Not Estab.)
[2024-09-13 11:07] LABS: Hemoglobin A1C 5.6 % (4.0-6.0)
[2024-09-13 11:09] LABS: Albumin Level 4.5 g/dl (3.5-5.0); Chloride 105 mmol/L (98-107); Potassium 4.4 mmoL/L (3.5-5.1); Sodium 140 mmol/L (136-145)
[2024-09-13 11:12] LABS: Alanine Aminotransferase 30 U/L (12-78); Albumin/Globulin Ratio 1.9 (1.1-1.8); Alkaline Phosphatase 72 U/L (38-126); Anion Gap 12.4 mEq/L (5-15); Aspartate Amino Transferase 26 U/L (17-59); Bilirubin,Total 0.3 mg/dl (0.2-1.3); Blood Urea Nitrogen 14 mg/dl (9-20); Carbon Dioxide 27 mmol/L (22.0-30.0); Cholesterol 193 mg/dl (140-200); Estimated Glomerular Filt Rate 75 ml/min (>60); GFR (African American) 90 ML/MIN (>60); Globulin 2.4 g/dL (1.3-3.2); Total Protein,Serum 6.9 g/dl (6.3-8.2); Triglycerides 244 mg/dl (30-150); VLDL Cholesterol 49 mg/dL (0-40)
[2024-09-13 11:13] LABS: Calcium 9.5 mg/dl (8.4-10.2); Chol/HDL Ratio 6.7 (1-3.5); Glucose 97 mg/dl (74-100); HDL Cholesterol 29 mg/dl (40-60)
[2024-09-13 11:24] LABS: Direct LDL Cholesterol 119.59 mg/dL (100-129)
[2024-09-13 12:04] LABS: Prostate Specific Ag Screen 0.5 ng/ml (0.0-4.0)
[2024-09-14 08:13] LABS: Testosterone,Total 485 ng/dL (264-916)
== END 2024-09-13 23:59 | disposition home or self-care (01) ==
PROVIDERS: PCP Nurse Practitioner Family; Visit Provider Nurse Practitioner Family
DX: N52.9 Male erectile dysfunction, unspecified (principal); I10 Essential (primary) hypertension; K21.9 Gastro-esophageal reflux disease without esophagitis; R73.01 Impaired fasting glucose; Z12.5 Encounter for screening for malignant neoplasm of prostate
CPT/HCPCS: 36415; 80053; 80061; 82043; 82570; 83036; 84403; 85025; G0103

== ENCOUNTER 2024-09-15 14:37 | Outpatient (POV) | payer MEDICARE, BC, SELFPAY ==
--- NOTE | 2024-09-15 15:07 | EXP.PAIN.SOA ---
[facility] Disclaimer: The information contained in this section may have been updated after the patient was seen, as this information can be updated by other users. Medical History Complex sleep apnea syndrome Surgical History History of facial surgery History of hernia surgery Family History Other Diabetes Hypertension Social History Smoking Status: Never smoker alcohol intake: never substance use type: denies use current occupational status: other Travel in the last 8 weeks?: None household members: significant other housing: house marital status: number of children: 7 PM Subjective & Objective Subjective Subjective:: Patient is a pleasant 69-year-old male who presents today for medication refill and follow-up. He rates his pain today at 3 out of 10. He denies any new trauma or injury. Patient is currently managed with gabapentin 100 mg daily and Robeline 10 mg 4 times a day. Patient denies any side effects. His Lloyd has been reviewed and is appropriate. Review of Systems: General: No recent weight changes, no fever, no sleep disturbances Respiratory: No cough, no shortness of air, no recurring pulmonary infections Cardiovascular/peripheral vascular: No chest pain, no palpitations, no edema, no shortness of breath Gastrointestinal: No new onset incontinence, normal bowel movements reported Genitourinary: No new onset incontinence Musculoskeletal: Low back pain Psychiatric: [Normal mood/affect] Neurological: [Denies weakness in extremities], [denies balance issues] Pain at rest (0-10 scale): 3 Objective Objective:: Physical Exam: General: Alert and oriented x3, no acute distress, pleasant and cooperative Lungs: Respirations even and unlabored, symmetrical chest expansion Eyes: PERRL Musculoskeletal: Flexion and extension of lumbar [spine] somewhat guarded secondary to pain, [antalgic gait noted] Neurological: Speech clear, no gross sensory deficit Has patient had previous pain injection?: No Conservative treatment options previously tried: Prescription medications Length of treatment: Longer than 12 weeks Meds Home Medications and Allergies Home Medications ?Medication ?Instructions ?Recorded ?Confirmed ?Type amlodipine 10 mg tablet 10 mg PO DAILY . 06/14/21 08/12/24 History benazepril 20 mg tablet 20 mg PO DAILY . 06/14/21 08/12/24 History metformin 500 mg/5 mL oral solution 500 mg PO BID Diabetes 06/14/21 08/12/24 History albuterol sulfate 90 mcg/actuation 1 - 2 puffs inhalation Q6HP PRN 08/01/21 08/12/24 Rx aerosol inhaler Shortness Of Breath #1 ea ibuprofen 800 mg tablet 800 mg PO TID PRN Moderate Pain 30 11/15/21 08/12/24 Rx days #240 tabs hydrocodone 10 mg-acetaminophen 1 tab PO QID #20 tabs 12/04/23 08/12/24 Rx 325 mg tablet gabapentin 100 mg capsule 100 mg PO DAILY #30 caps 08/12/24 Rx hydrocodone 10 mg-acetaminophen 1 tab PO QID #120 tabs 08/12/24 Rx 325 mg tablet New Prescriptions to Start Prescriptions: Allergies Allergy/AdvReac Type Severity Reaction Status Date / Time albuterol Allergy Severe breathing Verified 10/23/23 14:06 problems Assessment and Plan *Assessment and plan (1) Degenerative disc disease, lumbar: Status: Acute Qualifiers: Disc-related pain type: discogenic back pain and lower extremity pain Qualified Code(s): M51.362 - Other intervertebral disc degeneration, lumbar region with discogenic back pain and lower extremity pain Category: Medical Code(s): M51.369 - Other intervertebral disc degeneration, lumbar region without mention of lumbar back pain or lower extremity pain (2) Lumbar radiculopathy: Status: Acute Category: Medical Code(s): M54.16 - Radiculopathy, lumbar region Plan I will refill the patient's gabapentin and Robeline and provide a 1 month supply of this medication. Patient is doing really well with this medication regimen. He will return to clinic in 1 month. Risks and benefits of the medication have been explained in detail to the patient. The patient does understand the risk of dependence on the medication when given over a prolonged period. Patient has been advised of risks of oversedation with the prescribed medication. Narcan has been offered to the paitent in the event of oversedation. Patient has been advised that a family member should also be educated regarding administration of Narcan. The patient has been advised to consult with his/her primary care provider and pharmacist regarding drug-drug interaction of medications currently prescribed. Patient has been prescribed a controlled substance after being counseled on the medication, medication safety, and possible side effects. Opioid contract was reviewed and signed by the patient, and that they have agreed to all of the terms set forth by our compliance program. A UDS is needed to verify patient's compliance with our office pain contract. This is ordered based off specific treatments related to chronic pain with the potential to abuse certain medications. Patient has been instructed to contact the clinic with any concerns before the next appointment. Dr. Santiago has reviewed this note and agrees with this plan of care. This note was dictated using voice recognition software and make contain errors or omissions.
[2024-09-15 15:49] VITALS: BP 125/79; PULSE 76; RESP 18; O2SAT 96; BMI 27.6
== END 2024-09-15 23:59 | disposition home or self-care (01) ==
PROVIDERS: PCP Family Medicine; Visit Provider Nurse Practitioner Family
DX: M51.16 Intervertebral disc disorders with radiculopathy, lumbar region (principal); Z79.891 Long term (current) use of opiate analgesic; Z79.899 Other long term (current) drug therapy
CPT/HCPCS: 99212; G0463

== ENCOUNTER 2024-10-18 14:02 | Outpatient (POV) | payer BC, MEDICARE, SELFPAY ==
--- OUTSIDE RECORDS SUMMARY | 2024-04-26 09:15 | XMS_ITS ---
[facility] Address [address] [place] [id number] Care Team Providers Care Central Supply Manager Name Role Phone Ted Knutson Unavailable [phone] Sandi Shruti Unavailable [phone] Allergies No Known Allergies REASON FOR VISIT 6 month checkup, Needs labs, colon cancer screening, diabetic eye exam, Prevnar, & flu vaccines Medications Medication SIG (Take, Route, Frequency, Duration) Notes Start Date End Date Status Omeprazole 40 MG 1 cap(s) orally once a day; Duration: 90 days Active Benazepril HCl 20 MG 1 tab(s) orally onc e a day Active Azelastine HCl 137 MCG/SPRAY 1 puff in each nostril Nasally Twice a day 08/14/2023 Active HYDROcodone Bitartrate ER 10 MG 1 cap(s) orally every 12 hours; Duration: 30 day(s) Active amLODIPine Besylate 10 MG 1 tab(s) orall y once a day Active Karen-D Allergy & Congestion 60-120 MG TAKE 1 TABLET BY MOUTH EVERY 12 HOURS Active Debrox 6.5 % 5 drops into affecte d ear Otic Twice a day 08/14/2023 Not-Taking Flonase Allergy Relief 50 MCG/ACT 1 spray in each nostril Nasally Twice a day; Duration: 30 day(s) 04/26/2024 Active Albuterol Sulfate HFA 108 (90 Base) MCG/ACT 1 puff as needed Inhalation every 4 hrs; Duration: 30 day(s) 04/02/2024 Active Flomax 0.4 MG 1 capsule Orally Onc e a day; Duration: 30 day(s) 04/26/2024 Active hydrOXYzine HCl 25 MG 1 tablet as needed Orally Three times a day 12/17/2023 Active Ibuprofen 600 MG 1 tablet with food o r milk as needed Orally every 8 hours as needed 01/23/2023 Active Cialis 10 MG 1 tab(s) orally once a day as needed Active metFORMIN HCl 500 MG 1 tab(s) orally 2 t imes a day; Duration: 90 days Active Problems Problem Type SNOMED Code ICD Code Onset Dates Problem Status W/U Status Risk Notes Problem Acute allergic rhinitis (J30.9) Active confirmed Vital Signs Blood pressure systolic 118 mm Hg 04/26/19 25 Blood pressure diastolic 72 mm Hg 025 Heart Rate 75 /min 04/26/2024 Height 69 in 04/26/2024 Weight 198.4 lbs 04/26/2024 BMI 29.30 kg/m2 04/26/2024 Encounters Encounter Location Date Provider Diagnosis [facility] [address] [facility] [address] [place] [id number] 04/26/2024 Shruti Junior Urinary stream slowi ng R39.198 ; Primary hypertension I10 ; Erectile dysfunction, unspecified erectile dysfunction type N52.9 ; Allergic rhinitis, unspecified seasonality, unspecified trigger J30.9 and Acute allergic rhinitis J30.9 Assessments Encounter Date Diagnosis (ICD Code) Assessment Notes Treatment Notes Treatment Clinical Notes Section Notes 04/26/2024 Urinary stream slowing (ICD-10 - R39.198) has been on Flomax in the past and it helped; PSA normal 08/202304/26/2024 Primary hypertension (ICD-10 - I10) 04/26/2024 Erectile dysfunction, unspecified erectile dysfunction type (ICD-10 - N52.9) 04/26/2024 Allergic rhinitis, unspecified seasonality, unspecified trigger (ICD-10 - J30.9) 04/26/2024 Acute allergic rhinitis (ICD-10 - J30.9) 04/26/2024 Other will RTC in 3-4 months fasting for OV and labs Plan Of Treatment Medication Medication Name Sig Start Date Stop Date Notes Benazepril HCl 20 MG 1 tab(s) orally once a day Azelastine HCl 137 MCG/SPRAY 1 puff in e ach nostril Nasally Twice a day 08/14/2023 amLODIPine Besylate 10 MG 1 tab(s) orally once a day Karen-D Allergy & Congesti on 60-120 MG TAKE 1 TABLET BY MOUTH EVERY 12 HOURS Flonase Allergy Relief 50 MCG/ACT 1 spray in each nostril Nasally Twice a day; Duration: 30 day(s) 04/26/2024 Flomax 0.4 MG 1 capsule Orally Onc e a day; Duration: 30 day(s) 04/26/2024 Cialis 10 MG 1 tab(s) orally once a day as needed Treatment Notes Assessment Notes Urinary stream slowing has been on Floma x in the past and it helped; PSA normal 08/2023 Other will RTC in 3-4 eitan hs fasting for OV and labs Next Appt Details Follow Up: 3-4 months, Reaso n: Provider Name:Shruti ayala, 11/15/2024 01:15:00 PM, [address], [address], [place], [place], [id number], Progress Notes * CANDI SRINIVASANDOB:1955 (69 yo M)Acc No.[id number]:04/26/2024 Progress Notes Patient: CANDI TAYLOR Provider: ZHAO Pagan :1955 A ge:68 Y S ex:Male Date:04/26/2024 Address:[address] [place] [address], [id number] Subjective: * Chief Complaints: * 1 . 6 month checkup. 2. Needs labs, colon cancer screening, diabetic eye exam, Prevnar, & flu vaccines. * HPI: C ardiology: Blood Pressure Elevated P t presents today for a 6 month check up. Pt sts that he has no new concerns or complaints at this time. * ROS: D ERMATOLOGY: no R maryanne. n o H irma. G ASTROENTEROLOGY: no N ausea. n o V omiting. U ROLOGY: no D ifficulty urinating. n o B lood in urine. 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 * Surgical History: H ernia 2003, Faical Trauma 2011, Nasal 2014 . * Hospitalization/Major Diagno stic Procedure: D enies Past Hospitalization. * Family History: F ather: , family history unknown . M other: alive 88 yrs. * Social History: C affeine: yes, frequency: Occasional. Exercise: yes, walk [place]. Past smoking status: never smoked. Recreational drug use: no. * Medications: T aking HYDROcodone Bitartrate ER 10 MG Capsule Extended Release 12 Hour 1 cap(s) orally every 12 hours , Taking amLODIPine Besylate 10 MG Tablet 1 tab(s) orally once a day , Taking Benazepril HCl 20 MG Tablet 1 tab(s) orally once a day , Taking Omeprazole 40 MG Capsule Delayed Release 1 cap(s) orally once a day , Taking Cialis 10 MG Tablet 1 tab(s) orally once a day as needed , Taking Ibuprofen 600 MG Tablet 1 tablet with food or milk as needed Orally every 8 hours as needed , Taking Azelastine HCl 137 MCG/SPRAY Solution 1 puff in each nostril Nasally Twice a day , Taking hydrOXYzine HCl 25 MG Tablet 1 tablet as needed Orally Three times a day , Taking metFORMIN HCl 500 MG Tablet 1 tab(s) orally 2 times a day , Taking Albuterol Sulfate HFA 108 (90 Base) MCG/ACT Aerosol Solution 1 puff as needed Inhalation every 4 hrs , Taking Karen-D Allergy & Congestion 60-120 MG Tablet Extended Release 12 Hour TAKE 1 TABLET BY MOUTH EVERY 12 HOURS , Not-Taking Debrox 6.5 % Solution 5 drops into affected ear Otic Twice a day , Discontinued Amoxicillin 500 MG Capsule 1 capsule Orally every 8 hrs , Medication List reviewed and reconciled with the patient * Allergies: N .K.D.A. Objective: * Vitals: W t:198.4, Temp:97.6, BP:118/72, HR:75, Nurse:PAPITO, Ht: 69, BMI:29.30. * Examination: G eneral Examination: General Appearance: NAD, alert, pleasant; walks with 0ut problems; use cane due to blindness. H EENT: sclera and conjunctiva clear, PERRLA, TM's normal, translucent; right ear canal with cerumen. O ral cavity: mucosa moist and WNL, no erythema. N yunier: supple, no lymphadenopathy, no carotid bruits, thyroid normal. H eart:? RRR. L ungs: CTAB A&P. N eurologic Exam: alert and oriented; conversant. E xtremities: no leg edema. n on tender sinuses. Assessment: * Assessment: 1. U rinary stream slowing - R39.198 (Primary) 2 . P rimary hypertension - I10 3 . E rectile dysfunction, unspecified erectile dysfunction type - N52.9? 4. A llergic rhinitis, unspecified seasonality, unspecified trigger - J30.9 & #160; 5 . A cute allergic rhinitis - J30.9 Plan: * Treatment: 2. P rimary hypertension Continue Benazepril HCl Tablet, 20 MG, 1 tab(s), orally, once a day; C ontinue amLODIPine Besylate Tablet, 10 MG, 1 tab(s), orally, once a day. 3. E rectile dysfunction, unspecified erectile dysfunction type Refill Cialis Tablet, 10 MG, 1 tab(s), orally, once a day as needed, 30, Refills 5. 4. A llergic rhinitis, unspecified seasonality, unspecified trigger Start Flonase Allergy Relief Suspension, 50 MCG/ACT, 1 spray in each nostril, Nasally, Twice a day, 30 day(s), 1, Refills 5; C ontinue Karen-D Allergy & Congestion Tablet Extended Release 12 Hour, 60-120 MG, TAKE 1 TABLET BY MOUTH EVERY 12 HOURS; C ontinue Azelastine HCl Solution, 137 MCG/SPRAY, 1 puff in each nostril, Nasally, Twice a day. 5. O thers Notes: will RTC in 3-4 months fasting for OV and labs * Follow Up: 3 -4 months * Images: Billing Information: * Visit Code: 81764 Office Visit, Est Pt., Level 4. * Procedure Codes: * Electronic signature of Iwona Junior APRN on 10/18/2024 at 02:09 PM EDT Sign off status: Pending * Provider: ZHAO Pagan Date: 0 04/26/2024 Generated for Melvina hodges/Pia/Julian on: 0 10/18/2024 02:09 PM EDT History and Physical Notes * HPI (History of Present Illness) Category Sub-Category Detail Notes Category Not es Cardiology Blood Pressure Elevated Pt prese nts today for a 6 month check up. Pt sts that he has no new concerns or complaints at this time Examination Category Sub-Category Detail Notes Category Not es General Examination HEENT: sclera and c onjunctiva clear, PERRLA, TM's normal, translucent; right ear canal with cerumen non tender sinuses Heart: RRR Lungs: CTAB A&P Extremities: no leg edema General Appearance: NAD, alert, pleasant ; walks with 0ut problems; use cane due to blindness Neurologic Exam: alert and oriented; conversant Neck: supple, no lymphaden opathy, no carotid bruits, thyroid normal Oral cavity: mucosa moist and WNL , no erythema
--- OUTSIDE RECORDS SUMMARY | 2024-08-23 09:15 | XMS_ITS ---
[facility] Address [address] ARS[place]AN [place] [id number] Care Team Providers Care Drain Tiler Name Role Phone Ted Knutson Meir Unavailable [phone] Shruti Junior Unavailable [phone] Allergies No Known Allergies Results Component Value Reference Range Notes Glycohemoglobin (HbA1C) Reviewed date:09/13/2024 04:21:07 PM Interpretation:see duplicate order Performing Lab: Notes/Report: see duplicate order PSA Reviewed date:09/13/2024 04:21:20 PM Interpretation:see duplicate order Performing Lab: Notes/Report: see duplicate order Complete Metabolic Profile Reviewed date:09/13/2024 04:21:31 PM Interpretation:see duplicate order Performing Lab: Notes/Report: see duplicate order lipid profile Reviewed date:09/13/2024 04:21:48 PM Interpretation:see duplicate order Performing Lab: Notes/Report: see duplicate order CBC Reviewed date:09/13/2024 04:22:01 PM Interpretation:see duplicate order Performing Lab: Notes/Report: see duplicate order H-Microalbumine/Creatinine Reviewed date:09/13/2024 04:22:14 PM Interpretation:see duplicate order Performing Lab: Notes/Report: see duplicate order colonoscopy Reviewed date:08/24/2024 03:29:22 PM Interpretation:declines Performing Lab: Notes/Report: declines REASON FOR VISIT 6 month ckup and Annual Wellness Visit Medications Medication SIG (Take, Route, Frequency, Duration) Notes Start Date End Date Status Karen-D Allergy & Congestion 60-120 MG TAKE 1 TABLET BY MOUTH EVERY 12 HOURS Twice a day; Duration: 90 days Active Benazepril HCl 20 MG 1 tab(s) orally onc e a day; Duration: 90 days Active HYDROcodone Bitartrate ER 10 MG 1 cap(s) orally every 12 hours; Duration: 30 day(s) Active Cialis 10 MG 1 tab(s) orally once a day as needed Active Debrox 6.5 % 5 drops into affecte d ear Otic Twice a day 08/14/2023 Active Omeprazole 40 MG Take 1 capsule by [facility] once daily for 90 days Orally Once a day; Duration: 90 days Active amLODIPine Besylate 10 MG Take 1 tablet by mouth once daily for 90 days; Duration: 90 days Active Ibuprofen 600 MG 1 tablet with food o r milk as needed Orally every 8 hours as needed; Duration: 90 days 01/23/2023 Active metFORMIN HCl 500 MG 1 tab(s) orally 2 t imes a day; Duration: 90 days Active Albuterol Sulfate HFA 108 (90 Base) MCG/ACT 1 puff as needed Inhalation every 4 hrs Active Problems Problem Type SNOMED Code ICD Code Onset Dates Problem Status W/U Status Risk Notes Problem Hyperlipidemia (E78.5) Active confirmed Vital Signs Blood pressure systolic 110 mm Hg 08/24/19 25 Blood pressure diastolic 76 mm Hg 025 Heart Rate 75 /min 08/23/2024 Height 69 in 08/23/2024 Weight 195.8 lbs 08/23/2024 BMI 28.91 kg/m2 08/23/2024 Encounters Encounter Location Date Provider Diagnosis [facility] [address] [id number] 08/23/2024 Shruti Junior Adult general medica l examination Z00.00 ; Primary hypertension I10 ; Erectile dysfunction, unspecified erectile dysfunction type N52.9 ; Chronic GERD K21.9 ; IFG (impaired fasting glucose) R73.01 ; Allergic rhinitis, unspecified seasonality, unspecified trigger J30.9 ; Other chronic pain G89.29 ; Blindness and low vision H54.10 ; Prostate cancer screening Z12.5 ; Cerumen debris on tympanic membrane of both ears H61.23 ; Hyperlipidemia E78.5 and BMI 28.0-28.9,adult Z68.28 Assessments Encounter Date Diagnosis (ICD Code) Assessment Notes Treatment Notes Treatment Clinical Notes Section Notes 08/23/2024 Adult general medical examination (ICD-10 - Z00.00) Patient instructed to return to office Annually for Annual Wellness Visits to include annual screenings of Pain assessment, Functional Ability assessment, Cognitive Ability assessment, Fall Risk assessment, Depression screening and Bladder control screening. 08/23/2024 Primary hypertension (ICD-10 - I10) 08/23/2024 Erectile dysfunction, unspecified erectile dysfunction type (ICD-10 - N52.9) 08/23/2024 Chronic GERD (ICD-10 - K21.9) 08/23/2024 IFG (impaired fasting glucose) (ICD-10 - R73.01) 08/23/2024 Allergic rhinitis, unspecified seasonality, unspecified trigger (ICD-10 - J30.9) 08/23/2024 Other chronic pain (ICD-10 - G89.29) 08/23/2024 Blindness and low vision (ICD-10 - H54.10) 08/23/2024 Prostate cancer screening (ICD-10 - Z12.5) 08/23/2024 Cerumen debris on tympanic membrane of both ears (ICD-10 - H61.23) 08/23/2024 Hyperlipidemia (ICD-10 - E78.5) 08/23/2024 BMI 28.0-28.9,adult (ICD-10 - Z68.28) 08/23/2024 Other pt will have fasting labs done but unsure as to where; declines immunizations and colon screening; needs also Lipid screening,CMP, CBC, PSA,A1C, and testosterone Plan Of Treatment Medication Medication Name Sig Start Date Stop Date Notes Karen-D Allergy & Congestion 60-120 MG TAKE 1 TABLET BY MOUTH EVERY 12 HOURS Twice a day; Duration: 90 days Benazepril HCl 20 MG 1 tab(s) orally onc e a day; Duration: 90 days Cialis 10 MG 1 tab(s) orally once a day as needed Debrox 6.5 % 5 drops into affecte d ear Otic Twice a day 08/14/2023 Omeprazole 40 MG Take 1 capsule by [facility] once daily for 90 days Orally Once a day; Duration: 90 days amLODIPine Besylate 10 MG Take 1 tablet by mouth once daily for 90 days; Duration: 90 days Ibuprofen 600 MG 1 tablet with food o r milk as needed Orally every 8 hours as needed; Duration: 90 days 01/23/2023 metFORMIN HCl 500 MG 1 tab(s) orally 2 t imes a day; Duration: 90 days Albuterol Sulfate HFA 108 (9 0 Base) MCG/ACT 1 puff as needed Inhalation every 4 hrs Treatment Notes Assessment Notes Adult general medical examination Patien t instructed to return to office Annually for Annual Wellness Visits to include annual screenings of Pain assessment, Functional Ability assessment, Cognitive Ability assessment, Fall Risk assessment, Depression screening and Bladder control screening. Other pt will have fasting labs done but unsure as to where; declines immunizations and colon screening; needs also Lipid screening,CMP, CBC, PSA,A1C, and testosterone Pending Test Test Name Order Date testosterone total 08/23/2024 Cologuard 08/23/2024 Next Appt Details Follow Up: 6 Months,and prn, Reason: Provider Name:Shruti Cruz onmikki, 11/15/2024 01:15:00 PM, [address], [address], [place], [place], [id number], Progress Notes * CANDI SRINIVASANDOB:1955 (69 yo M)Acc No.[id number]:08/23/2024 Annual Wellness Visit Patient: CANDI TAYLOR Provider: ZHAO Pagan :1955 A ge:69 Y S ex:Male Date:08/23/2024 Address:[address] [place] [address], [id number] Subjective: * Chief Complaints: * 1 . 6 month ckup and Annual Wellness Visit. * HPI: H PI: Patient is here today for a scheduled check up , a Medicare Annual Wellness Visit. Pt sts he is doing well and has no concerns at this time. * ROS: R ESPIRATORY: no S hortness of breath. n o C hest pain. n o?Cough. G ASTROENTEROLOGY: no N ausea. n o H eartburn. n o V omiting.?no D iarrhea. O PTHALMOLOGY: Negative for d enies issues with vision. L oss of vision y es, l eft eye with false eye; can see objects with the right eye. * Medical History: H ypertertion, Impaired Fasting Glucose, GERD, Legally Blind, Vitamin D Deficiency, Chronic pain, followed by pain management. * Surgical History: H ernia 2003, Faical Trauma 2011, Nasal 2014. * Family History: F ather: , family history unknown . M other: alive 88 yrs. * Social History: C affeine: yes, frequency: Occasional. Exercise: yes, [place]. Past smoking status: never smoked. Recreational drug use: no. * Medications: T aking HYDROcodone Bitartrate ER 10 MG Capsule Extended Release 12 Hour 1 cap(s) orally every 12 hours , Taking metFORMIN HCl 500 MG Tablet 1 tab(s) orally 2 times a day , Taking Cialis 10 MG Tablet 1 tab(s) orally once a day as needed , Taking Ibuprofen 600 MG Tablet 1 tablet with food or milk as needed Orally every 8 hours as needed , Taking amLODIPine Besylate 10 MG Tablet Take 1 tablet by mouth once daily for 90 days , Taking Albuterol Sulfate HFA 108 (90 Base) MCG/ACT Aerosol Solution 1 puff as needed Inhalation every 4 hrs , Taking Omeprazole 40 MG Capsule Delayed Release Take 1 capsule by mouth once daily for 90 days , Taking Benazepril HCl 20 MG Tablet 1 tab(s) orally once a day , Taking Karen-D Allergy & Congestion 60-120 MG Tablet Extended Release 12 Hour TAKE 1 TABLET BY MOUTH EVERY 12 HOURS , Not- Taking Debrox 6.5 % Solution 5 drops into affected ear Otic Twice a day , Discontinued hydrOXYzine HCl 25 MG Tablet 1 tablet as needed Orally Three times a day , Discontinued Flonase Allergy Relief 50 MCG/ACT Suspension 1 spray in each nostril Nasally Twice a day , Discontinued Azelastine HCl 137 MCG/SPRAY Solution 1 puff in each nostril Nasally Twice a day , Medication List reviewed and reconciled with the patient * Allergies: N .K.D.A. Objective: * Vitals: W t: 195.8, Temp: 98.1, BP: 110/76, HR: 75, Nurse: mmmary, Ht: 69, BMI:28.91. * Examination: G eneral Examination: General Appearance: N AD , alert , pleasant , well nourished and hydrated. H EENT: s clera and conjunctiva clear, right AUGUSTUS, TM's normal, translucent; left false eye. O ral cavity: n ormal , no erythema. N yunier: s upple , no lymphadenopathy , no carotid bruits , thyroid normal. H eart: R RR. L ungs: C TAB A&P.?Abdomen: b owel sounds present , soft and nontender. N eurologic Exam: a lert and oriented. E xtremities: t race leg edema bilaterally. * Physical Examination: G ENERAL: Pain Assessment: P ain level:3 , on a scale of 0 to 10 (10 being extreme pain); he has periodic jaw pain. F unctional Status Assessment:?Patient response to how often physical health interferes with daiy activities:almost never Able to perform ADLs-including meal preparation, grocery shopping, housework, laundry, taking medications, or handling finances. Cognitive Status: Alert and oriented. Ambulation Status: Fully ambulatory. F all Risk Assessment: I ndependant in ambulation, adequate lighting in home. Patient has NOT fallen or had trouble walking within the past 12 months. D epression Screening: D mike depressed mood or anxiety. Describes emotional health as:calm and peaceful. B ladder Control Screening: D sharaies problems. Assessment: * Assessment: 1. A dult general medical examination - Z00.00 (Primary) 2 . P rimary hypertension - I10 3 . E rectile dysfunction, unspecified erectile dysfunction type - N52.9 4 . C hronic GERD - K21.9 5 . I FG (impaired fasting glucose) - R73.01 6 . A llergic rhinitis, unspecified seasonality, unspecified trigger - J30.9 7 . O ther chronic pain - G89.29 8 . B lindness and low vision - H54.10 9 . P rostate cancer screening - Z12.5 10. C erumen debris on tympanic membrane of both ears - H61.23 1 1. H yperlipidemia - E78.5 1 2. B UT 28.0-28.9,adult - Z68.28 Plan: * Treatment: 2. P rimary hypertension Refill amLODIPine Besylate Tablet, 10 MG, Take 1 tablet by mouth once daily for 90 days, 90 days, 90 Tablet, Refills 1; R efill Benazepril HCl Tablet, 20 MG, 1 tab(s), orally, once a day, 90 days, 90 Tablet, Refills 1. L AB: Complete Metabolic Profile (Collection Date & Time - 09/13/2024) s ee duplicate order L AB: CBC (Collection Date & Time - 09/13/2024) s ee duplicate order L AB: H-Microalbumine/Creatinine (Collection Date & Time - 09/13/2024) s ee duplicate order 3. E rectile dysfunction, unspecified erectile dysfunction type Continue Cialis Tablet, 10 MG, 1 tab(s), orally, once a day as needed. L AB: testosterone total 4. C hronic GERD Refill Omeprazole Capsule Delayed Release, 40 MG, Take 1 capsule by mouth once daily for 90 days, Orally, Once a day, 90 days, 90, Refills 1. L AB: CBC (Collection Date & Time - 09/13/2024) s ee duplicate order 5. I FG (impaired fasting glucose) Refill metFORMIN HCl Tablet, 500 MG, 1 tab(s), orally, 2 times a day, 90 days, 180 Tablet, Refills 1. L AB: Glycohemoglobin (HbA1C) (Collection Date & Time - 09/13/2024) s ee duplicate order 6.?Allergic rhinitis, unspecified seasonality, unspecified trigger? Refill Karen-D Allergy & Congestion Tablet Extended Release 12 Hour, 60-120 MG, TAKE 1 TABLETBY MOUTH EVERY 12 HOURS, Twice a day, 90 days, 180, Refills 1;?Continue Albuterol Sulfate HFA Aerosol Solution, 108 (90 Base) MCG/ACT, 1 puff as needed, Inhalation, every 4 hrs.??7.?Other chronic pain? Refill Ibuprofen Tablet, 600 MG, 1 tablet with food or milk as needed, Orally, every 8 hours as needed, 90 days, 270, Refills 1.??8.?Prostate cancer screening?LAB: PSA (Collection Date & Time - 09/13/2024)?see duplicate order 9.?Cerumen debris on tympanic membrane of both ears? Refill Debrox Solution, 6.5 %, 5 drops into affected ear, Otic, Twice a day, 1, Refills 0.? 10.?Hyperlipidemia?LAB: lipid profile (Collection Date & Time - 09/13/2024)?see duplicate order11.?Others? Notes: pt will have fasting labs done but unsure as to where; declines immunizations and colon screening; needs also Lipid screening,CMP, CBC, PSA,A1C, and testosterone?? * Imaging: * I maging: colonoscopy (Performed Date - 08/24/2024) d eclines * Labs: * L ab: Cologuard * Procedure Codes: G 0438 ANNUAL WELLNES VST; PERSNL PPS INIT, G2211 Complex e/m visit add on, 1090F PRES/ABSN URINE INCON ASSESS, 3288F FALL RISK ASSESSMENT DOCD, 1170F FXNL STATUS ASSESSED, 1159F MED LIST DOCD IN RCRD, 1003F LEVEL OF ACTIVITY ASSESS, 1036F TOBACCO NON-USER, G8510 NEG SCR Depression PT NOT ELIG F/U/PLN DOC, G8420 BMI<30 AND >=22 CALC & DOCU, 3074F SYST BP LT 130 MM HG, 3078F DIAST BP < 80 MM HG, 1125F AMNT PAIN NOTED PAIN PRSNT * Preventive Medicine: Counseling: E motional health: E ncouraged to try connecting with family or friends to boost mood. B ladder control: D iscussed ways to control/manage leakage of urine. Exercise: A dvised to start, increase or maintain level of exercise/physical activity. I njury prevention: D iscussed fall prevention. Discussed need for cane/walker. Potential trip hazards discussed. Immunizations: P neumococcal r ecommended. I nfluenza r ecommended seasonally. Screening / Special Tests: C olonoscopy d eclines. P SA , normal. D iabetic Retinal Eye Exam w ill schedule eye exam. * Follow Up: 6 Months,and prn * Images: Billing Information: * Visit Code: 98392 Office Visit, Est Pt., Level 4. Modifiers: 25 * Procedure Codes: G0438 ANNUAL WELLNES VST; PERSNL PPS INIT. G2211 Complex e/m visit add on. 1090F PRES/ABSN URINE INCON ASSESS. 3288F FALL RISK ASSESSMENT DOCD. 1170F FXNL STATUS ASSESSED. 1159F MED LIST DOCD IN RCRD. 1003F LEVEL OF ACTIVITY ASSESS. 1036F TOBACCO NON-USER. G8510 NEG SCR Depression PT NOT ELIG F/U/PLN DOC. G8420 BMI<30 AND >=22 CALC & DOCU. 3074F SYST BP LT 130 MM HG. 3078F DIAST BP < 80 MM HG. 1125F AMNT PAIN NOTED PAIN PRSNT. * Electronic signature of Iwona chenbernie Junior APRN on 10/18/2024 at 02:09 PM EDT Sign off status: Pending * Provider: ZHAO Pagan Date: 0 08/23/2024 Generated for Marlini tracie/Pia/eTransmitting on: 0 10/18/2024 02:09 PM EDT History and Physical Notes * HPI (History of Present Illness) Category Sub-Category Detail Notes Category Not es HPI Patient is here today for a [facility] duled check up , a Medicare Annual Wellness Visit. Pt sts he is doing well and has no concerns at this time Physical Examination Category Sub-Category Detail Notes Section Note s GENERAL Pain Assessment: Pain level:3 , on a scale of 0 to 10 (10 being extreme pain); he has periodic jaw pain Functional Status Assessment: Patient re sponse to how often physical health interferes with daiy activities:almost neverAble to perform ADLs-including meal preparation, grocery shopping, housework, laundry, taking medications, or handling finances.Cognitive Status: Alert and oriented.Ambulation Status: Fully ambulatory Fall Risk Assessment: Independant in amb ulation, adequate lighting in home. Patient has NOT fallen or had trouble walking within the past 12 months Depression Screening: Denies depressed m ood or anxiety. Describes emotional health as:calm and peaceful Bladder Control Screening: Denies proble ms Examination Category Sub-Category Detail Notes Category Not es General Examination HEENT: sclera and c onjunctiva clear, right AUGUSTUS, TM's normal, translucent; left false eye Heart: RRR Lungs: CTAB A&P Abdomen: bowel sounds present , soft and nontender Extremities: trace leg edema bila terally General Appearance: NAD , alert , pleasa nt , well nourished and hydrated Neurologic Exam: alert and oriented Neck: supple , no lymphade nopathy , no carotid bruits , thyroid normal Oral cavity: normal , no erythema
--- OUTSIDE RECORDS SUMMARY | 2024-10-11 09:15 | XMS_ITS ---
Author Organization [facility] Address [address] [place] [id number] Care Team Providers Care Campaign Fundraiser Name Role Phone Ted Knutsonory Unavailable [phone] JuniorShruti ayala Unavailable [phone] Allergies No Known Allergies REASON FOR VISIT [...] Omeprazole 40 MG Take 1 capsule by [facility] once daily for 90 days Orally Once [...] 10/11/2024 Encounters Encounter Location Date Provider Diagnosis [facility] [address] [facility] [address] [place] [id number] 10/11/2024 Shruti Junior Weight loss counseling, encounter for Z71.3 and Chronic nausea R11.0 Assessments Encounter Date Diagnosis (ICD Code) Assessment Notes Treatment Notes Treatment Clinical Notes Section Notes 10/11/2024 Weight loss counseling, encounter for (ICD-10 - Z71.3) We discussed this shot is once weekly. We discussed a good diet, portion control, and exercising would also benefit. Discussed possible side effects and to continue taking the miralax. 10/11/2024 Chronic nausea (ICD-10 - R11.0) Plan Of Treatment Medication Medication Name Sig [...] Appt Details Follow Up: 4 Weeks, Reason: Provider Name:Shruti ayala, 11/15/2024 01:15:00 PM, [address] [facility], [address], [place], [id number], Progress Notes * CANDI SRINIVASANDOB:1955 (69 yo M)Acc No.[id number]:10/11/2024 Progress Notes Patient: CANDI TAYLOR Provider: ZHAO Pagan :1955 A ge:69 Y S ex:Male Date:10/11/2024 Address:[address] [id number] Subjective: * Chief Complaints: * 1 . [...] Temp: 98.2, BP: 112/76, HR: 76, Nurse: dixie, Ht: 69, BMI:29.15. * Examination: G eneral [...] 2 . C hronic nausea - R11.0 Plan: * Treatment: 2. C hronic nausea Start Ondansetron Tablet Disintegrating, 4 MG, 1 tablet on the tongue and allow to dissolve, Orally, every 6 hours As needed, 10. * Follow Up: 4 Weeks * Images: Billing Information: * Visit Code: 60309 Office Visit, Est Pt., Level 3. * Procedure Codes: * Electronic signature of Iwona Junior APRN on 10/18/2024 at 02:09 PM EDT Sign off status: Pending * Provider: ZHAO Pagan Date: 0 10/11/2024 Generated for Melvina hodges/Pia/Julian on: 10/18/2024 02:09 PM EDT History and Physical [...]
--- OUTSIDE RECORDS SUMMARY | 2024-10-18 14:09 | XMS_ITS | Clinical Summary ---
Author Organization [facility] Address [address] [place] [address] Care Team Providers Care Textile Machine Mechanic Name Role Phone Amilcar Catherine MD Primary Care Provider + [phone] Allergies Active Allergy Reactions Criticality Noted Date Comments Albuterol Other - please docum ent in the comment field High 08/24/2013 SVT Escitalopram Other - please docum ent in the comment field Low 12/17/2018 Does not like the feeling Medications pregabalin (Lyrica) 100 MG capsule Take 100 mg by mouth 2 (two) times a day. 01/15/2021 Active pilocarpine (Pilocar) 1 % ophthalmic solution 03/02/2021 Active omeprazole (PriLOSEC) [address] capsule 05/22/2021 Active metFORMIN (Glucophage) 500 MG tablet Take 500 mg by mouth 2 (two) times a day. 03/26/2021 Active gabapentin (Neurontin) 100 MG capsule Take 100 mg by mouth 3 (three) times a day. 05/17/2021 Active benazepril (Lotensin) 20 MG tablet Take 20 mg by mouth 1 (one) time each day. 05/07/2021 Active amoxicillin (Amoxil) 500 MG capsule Take 500 mg by mouth 3 (three) times a day. 03/19/2021 Active Active Problems Problem Noted Date Diagnosed Date HTN (hypertension) 04/17/2022 GERD (gastroesophageal reflux disease) 3 Vitamin D deficiency 04/25/2019 Mixed hypertriglyceridemia 04/25/2019 Gastroesophageal reflux disease with esophagitis 04/25/2019 Anxiety and depression 04/25/2019 Hyperglycemia 04/23/2019 Pure hypercholesterolemia 12/17/2018 Midline thoracic back pain 01/05/2015 Cervicalgia 01/05/2015 Chronic pain due to trauma 01/05/2015 Protein in urine 05/30/2014 LIZETTE (obstructive sleep apnea) 05/30/2014 Pupil disorder 01/17/2014 Insomnia 01/17/2014 Neuropathic pain 09/29/2013 ED (erectile dysfunction) 09/29/2013 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 Lipoma of skin 04/14/2013 Blunt trauma of face 04/14/2013 Social History Tobacco Use Types Packs/Day Years Used Date Smoking Tobacco: Never Smokeless Tobacco: Never Alcohol Use Standard Drinks/Week Comments Never 0 (1 standard drink = 0.6 oz pur e alcohol) Sex and Gender Information Value Date Recorded Sex Assigned at Not on file Legal Sex Male 10:31 AM EDT Gender Identity Not on file Sexual Orientation Not on file Last Filed Vital Signs Vital Sign Reading Time Taken Comments Blood Pressure 113/74 04/17/2022 1:46 PM EST Pulse 95 04/17/2022 1:46 PM EST Temperature 36.7 C (98.1 F) 04/17/2022 1:46 PM EST Respiratory Rate - - Oxygen Saturation 95% 04/17/2022 1:46 PM EST Inhaled Oxygen Concentration - - Weight 91.3 kg (201 lb 4.8 oz) 04/17/2022 1:46 P M EST Height 177.8 cm (5' 10 ) 04/17/2022 1:46 PM EST Body Mass Index 28.88 04/17/2022 1:46 PM EST Plan of Treatment Health Maintenance Due Date Last Done Comments [facility]-Depression Screening 1955 [facility]-Hepatitis C Screening 1955 [facility]Medicare Annual Wellness (AWV) 1955 [facility]-/Child/Adol SDOH Screenings 1955 [facility]- SDOH Screenings 1975 [facility]-Adult SDOH Screenings 1975 CT Colonography 2002 Colonoscopy 2002 FIT-DNA 2002 FIT 2002 FOBT 2002 Sigmoidoscopy 2002 [facility]-Colorectal Cancer Screening 2002 [facility]-Pneumococcal Vaccine: 50 + Years (1 of 1 - PCV) 2007 [facility]-Zoster Vaccines (1 of 2) 2007 [facility]-DTaP,Tdap,and Td Vaccine s (2 - Td or Tdap) 12/17/2021 12/18/2011 [id number] Vaccine (1 - 20 24-25 season) 2023 [facility]-Influenza Vaccine (#1) 2024 [facility]-RSV Vaccine: 60+ Years o r (1 - 1-dose 75+ series) 2032 [facility]-Obesity Intervention Completed 04/17/2022 HPV Vaccines Aged Out No longer eligi ble based on patient's age to complete this topic [facility]-HIB Vaccines Aged Out No longer e ligible based on patient's age to complete this topic [facility]-Hepatitis A Vaccines Aged Out No longer eligible based on patient's age to complete this topic [facility]-IPV Vaccines Aged Out No longer e ligible based on patient's age to complete this topic [facility]-Rotavirus Vaccines Aged Out No lo nger eligible based on patient's age to complete this topic Insurance Member Subscriber Plan / Payer (Ef fective 2020-Present) Name:Collin Posey Relation to Subscriber:Self Name:Collin Posey Payer ID:[id number] ([facility]) Type:Not on file Address: [address] [place] [address] MEDICARE Care Teams Textile Machine Mechanic Relationship Specialty Start Date End Date Amilcar Catherine MD [address] [facility] [address], [place] [address] [facility] - General 02/08/21
--- OUTSIDE RECORDS SUMMARY | 2024-10-18 14:09 | XMS_ITS | Patient Health Record ---
[facility] Address [address] [place] [id number] Care Team Providers Care Home Administrator Name Role Phone Ted Knutson Unavailable [phone] Amilcar Catherine Unavailable [phone] Shruti Junior Unavailable [phone] Allergies No Known Allergies Results Component Value Reference Range Notes CBC Fingerstick (in house) Reviewed date:03/29/2024 09:00:07 PM Interpretation: Performing Lab: Notes/Report: wbc 10.1 3.5 - 10 lym 25.7 15 - 50 mid 5.6 2 - 15 gran 68.7 35 - 80 rbc 4.86 3.5 - 5.5 hgb 14.5 11.5 - 16.5 hct 43.5 35 - 55 mcv 89.5 75 - 100 mch 29.9 25 - 35 mchc 33.4 31 - 38 plat 272 100 - 400 lipid profile Reviewed date:09/13/2024 04:21:48 PM Interpretation:see duplicate order Performing Lab: Notes/Report: see duplicate order H-Creatinine Urine, random Reviewed date:09/15/2024 05:38:50 PM Interpretation: Performing Lab: Notes/Report: UCREAT 153 Not Estab. mg/dL Random urine reference range not established. 24 hour urine samples recommended. H-PSA Reviewed date:09/15/2024 05:36:22 PM Interpretation:0.5 Performing Lab: Notes/Report: PSASC 0.5 0.0-4.0 ng/ml H-Glycohemoglobin A1C Reviewed date:09/15/2024 05:37:54 PM Interpretation:5.6 Performing Lab: Notes/Report: HGBA1C 5.6 4.0-6.0 % < 6% Non-Diabetic Level < 7% Controlled Diabetic Level > 8% Poorly Controlled Diabetic Level H-CMP Reviewed date:09/15/2024 05:37:23 PM Interpretation: Performing Lab: Notes/Report: NA 140 136-145 mmol/L K 4.4 3.5-5.1 mmoL/L CL 105 98-107 mmol/L CO2 27 22.0-30.0 mmol/L GAP 12.4 5-15 mEq/L BUN 14 9-20 mg/dl CREATT 1.00 0.66-1.25 mg/dl GFRAA 90 >60 ML/MIN EGFR 75 >60 ml/min GLU 97 74-100 mg/dl CA 9.5 8.4-10.2 mg/dl BILIT 0.3 0.2-1.3 mg/dl AST 26 17-59 U/L ALT 30 12-78 U/L TP 6.9 6.3-8.2 g/dl ALB 4.5 3.5-5.0 g/dl GLOB 2.4 1.3-3.2 g/dL AGRATIO 1.9 1.1-1.8 ALP 72 38-126 U/L H-Lipid Panel Reviewed date:09/15/2024 05:36:57 PM Interpretation:TG 244; LJC434.59;HDL 29 Performing Lab: Notes/Report: Patient Fasting? Y TRIG 244 30-150 mg/dl CHOL 193 140-200 mg/dl DLDL 119.59 100-129 mg/dL VLDL 49 0-40 mg/dL HDL 29 40-60 mg/dl CHLHDL 6.7 1-3.5 H-MICROALB Reviewed date:09/15/2024 05:38:23 PM Interpretation: Performing Lab: Notes/Report: MICROALB 7.900 0-16.7 mg/L H-CBC Reviewed date:09/15/2024 05:39:18 PM Interpretation: Performing Lab: Notes/Report: WBC 10.3 4.8-10.8 K/mm3 RBC 4.60 4.60-6.20 M/mm3 HGB 13.9 14.1-18.0 g/dL HCT 41.1 42.0-52.0 % MCV 89.3 80-94 fl MCH 30.2 27.0-31.2 pg MCHC 33.8 31.8-35.4 g/dL RDW-SD 40.2 RDW 12.3 11.5-17.5 % PLT 347 142-424 K/mm3 MPV 10.3 7.4-10.4 fl NE% 40.6 37.0-80.0 % LY% 47.4 10-50 % MO% 8.7 1.7-9.3 % EO% 2.3 0.1-12.0 % BA% 0.8 0.1-2.0 % NRBC% 0 IG% 0.2 NE# 4.2 1.8-7.8 K/mm3 LY# 4.9 0.7-4.5 K/mm3 MO# 0.9 0.1-1.0 K/mm3 EO# 0.2 0.0-0.4 Kmm3 BA# 0.1 0-0.2 K/mm3 NRBC# 0 IG# 0.02 Glycohemoglobin (HbA1C) Reviewed date:09/13/2024 04:21:07 PM Interpretation:see [...] 03:29:22 PM Interpretation:declines Performing Lab: Notes/Report: declines H-Microalbumine/Creatinine Reviewed date:09/13/2024 04:22:14 PM Interpretation:see duplicate order Performing Lab: Notes/Report: see duplicate order M-Testosterone Reviewed date:09/15/2024 05:35:37 PM Interpretation:485 Performing Lab: Notes/Report: lcTESTT 485 264-916 ng/dL Adult male reference interval is based on a population of healthy nonobese males (BMI <30) between 19 and 39 years old. cecilia Jorge.al. JCEM 2017,102;3345-2113. PMID: 40809591. Performed at: [address] [id number] [employer] Charger: Judson Ni PhD, Phone: [phone] Reason For Referral No Information Medications Medication SIG (Take, Route, Frequency, Duration) Notes Start Date End Date Status HYDROcodone Bitartrate ER 10 MG 1 cap(s) orally every 12 hours; Duration: 30 day(s) Activ e Ibuprofen 600 MG 1 tablet with food o r milk as needed Orally every 8 hours as needed; Duration: 90 days 01/23/2023 Active metFORMIN HCl 500 MG 1 tab(s) orally 2 t imes a day; Duration: 90 days Active Omeprazole 40 MG Take 1 capsule by [facility] once daily for 90 days Orally Once a day; Duration: 90 days Active amLODIPine Besylate 10 MG Take 1 tablet by mouth once daily for 90 days; Duration: 90 days Active Karen-D Allergy & Congestion 60-120 MG TAKE 1 TABLET BY MOUTH EVERY 12 HOURS Twice a day; Duration: 90 days Active Benazepril HCl 20 MG 1 tab(s) orally onc e a day; Duration: 90 days Active Cialis [...] as needed Inhalation every 4 hrs Active Zepbound 2.5 MG/0.5ML 0.5 mL Subcutaneou s weekly; Duration: 30 days 10/11/2024 Active Problems Problem Type SNOMED Code ICD Code Onset Dates Problem Status W/U Status Risk Notes Problem Hyperlipidemia (57179466) Hyperlipidemia (E78.5) Active confirmed Problem Vitamin D deficiency (10555195) Vitamin D deficiency (E55.9) Active confirmed Problem Environmental allergy (047562829) Environmental allergies (Z91.09) Active confirmed Problem Primary insomnia (0809465) Primary insomnia (F51.01) Active confirmed Problem Snoring (54835657) Snoring (R06.83) Active conf irmed Problem Chronic pain (36186194) Other chronic pain (G89.29) Active confirmed Problem Gastroesophageal reflux disease (disorder) (920844991) Chronic GERD (K21.9) Active confirmed Problem Erectile dysfunction (disorder) (254557377) Erectile dysfunction, unspecified erectile dysfunction type (N52.9) Active confirmed Problem Daytime somnolence (732246847941) Excessive daytime sleepiness (G47.19) Active confirmed Problem Impaired fasting glycaemia (442302281) IFG (impaired fasting glucose) (R73.01) Active confirmed Problem Seasonal allergic rhinitis (004997316) Seasonal allergic rhinitis, unspecified trigger (J30.2) Active confirmed Problem Allergic rhinitis (34058040) Non-seasonal allergic rhinitis, unspecified trigger (J30.89) Active confirmed Problem Allergic rhinitis (75295362) Allergic rhinitis, unspecified seasonality, unspecified trigger (J30.9) Active confirmed Problem Essential hypertension (49819978) Hypertension, unspecified type (I10) Active confirmed Problem Influenza vaccination declined (630103547) Influenza vaccination declined (Z28.21) Active confirmed Problem Blindness AND/OR vision impairment level (disorder) (546304801) Blindness and low vision (H54.10) Active confirmed Problem Allergic rhinitis (85050478) Acute allergic rhinitis (J30.9) Active confirmed Problem Primary hypertension (09993786) Primary hypertension (I10) Active confirmed Problem 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 [address] [place], [place] [id number] 03/29/2024 Shruti Junior URI (upper respirato ry infection) J06.9 [facility] [address] [facility] [address] [facility] [address] [place], [place] [id number] 04/26/2024 Shruti Junior Urinary stream slowi ng R39.198 ; Primary hypertension I10 ; Erectile dysfunction, unspecified erectile dysfunction type N52.9 ; Allergic rhinitis, unspecified seasonality, unspecified trigger J30.9 and Acute allergic rhinitis J30.9 [facility] [address] [place], [place] [id number] 08/23/2024 Shruti Junior Adult general medica l [...] ; Hyperlipidemia E78.5 and BMI 28.0-28.9,adult Z68.28 [facility] [address] [place], [place] [id number] 10/11/2024 Shruti Junior Weight loss counseli tracie, encounter for Z71.3 and Chronic nausea R11.0 [facility] [address] [facility] [address] [place], [place] [id number] 10/23/2023 Amilcar Maitland [facility] [address] [place], [place] [id number] 12/16/2023 Ted Knutson [facility] [address] [place], [place] [id number] 03/30/2024 Shruti Junior [facility] [address] [facility] [address] [place], [place] [id number] 04/28/2024 Shruti Junior Urinary stream slowi tracie R39.198 [facility] [address] [facility] [address] [place], [place] [id number] 05/05/2024 Ted Knutson Other chronic pain G89.29 [facility] [address] [facility] [address] [place], [place] [id number] 10/11/2024 Ted Knutosn Assessments Encounter Date Diagnosis (ICD Code) Assessment Notes Treatment Notes Treatment Clinical Notes Section Notes 03/29/2024 URI (upper respiratory infection) (ICD-10 - J06.9) fluids, rest, supportive measures for fever/symptom relief 04/26/2024 Primary hypertension (ICD-10 - I10) 04/26/2024 Urinary stream slowing (ICD-10 - R39.198) has been on Flomax in the past and it helped; PSA normal 08/202304/28/2024 Urinary stream slowing (ICD-10 - R39.198) 05/05/2024 Other chronic pain (ICD-10 - G89.29) 08/23/2024 Adult general medical examination (ICD-10 - Z00.00) Patient instructed to return to office Annually for Annual Wellness Visits to include annual screenings of Pain assessment, Functional Ability assessment, Cognitive Ability assessment, Fall Risk assessment, Depression screening and Bladder control screening. 08/23/2024 Primary hypertension (ICD-10 - I10) 10/11/2024 Weight loss counseling, encounter for (ICD-10 - Z71.3) We discussed this shot is once weekly. We discussed a good diet, portion control, and exercising would also benefit. Discussed possible side effects and to continue taking the miralax. 10/11/2024 Chronic nausea (ICD-10 - R11.0) 08/23/2024 Erectile dysfunction, unspecified erectile dysfunction type (ICD-10 - N52.9) 04/26/2024 Erectile dysfunction, unspecified erectile dysfunction type (ICD-10 - N52.9) 04/26/2024 Allergic rhinitis, unspecified seasonality, unspecified trigger (ICD-10 - J30.9) 08/23/2024 Chronic GERD (ICD-10 - K21.9) 08/23/2024 IFG (impaired fasting glucose) (ICD-10 - R73.01) 04/26/2024 Acute allergic rhinitis (ICD-10 - J30.9) 08/23/2024 Allergic rhinitis, unspecified seasonality, unspecified trigger (ICD-10 - J30.9) 08/23/2024 Other chronic pain (ICD-10 - G89.29) 08/23/2024 Blindness and low vision (ICD-10 - H54.10) 08/23/2024 Prostate cancer screening (ICD-10 - Z12.5) 08/23/2024 Cerumen debris on tympanic membrane of both ears (ICD-10 - H61.23) 08/23/2024 Hyperlipidemia (ICD-10 - E78.5) 08/23/2024 BMI 28.0-28.9,adult (ICD-10 - Z68.28) 04/26/2024 Other will RTC in 3-4 months fasting for OV and labs 08/23/2024 Other pt will have fasting labs done but unsure as to where; declines immunizations and colon screening; needs also Lipid screening,CMP, CBC, PSA,A1C, and testosterone Plan Of Treatment Pending Test Test Name Order Date CXR 01/16/2023 X ray : ribs right 01/16/2023 testosterone total 08/23/2024 Cologuard 08/23/2024 H-TSH 12/29/2020 H-Microalbumine/Creatinine 12/29/2020 H-Lipid Panel 12/29/2020 H-CMP 12/29/2020 H-Glycohemoglobin A1C 12/29/2020 H-URIC ACID 12/29/2020 Next Appt Details Provider Name:Shruti Nancy ayala, 11/15/2024 01:15:00 PM, [address], [place], [place], [id number], Insurance Providers Payer Name Payer Address Payer Phone Subscriber Number Group Number Insured Name Patient Relationship to Insured Coverage Start Date Coverage End Date [employer] [address] [place] [address] [id number] CANDI SRINIVASAN Self - patient is the insured MEDICARE PART B [address] [id number] [facility] [place] [id number] CANDI SRINIVASAN Self - patient is the insured Medical (General) History Medical History History ICD Code Hypertertion Impaired Fasting Glucose GERD Legally Blind Vitamin D Deficiency Chronic pain, followed by pain managemen t Surgical History Surgery Date(Month/Year) Hernia 2004 Faical Trauma 2012 Nasal 2015 Hospitalization History Reason Date(Month/Year)
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
--- NOTE | 2024-10-18 14:24 | EXP.PAIN.SOA ---
[facility] Disclaimer: The information contained in this section may have been updated after the patient was seen, as this information can be updated by other users. Medical History Complex sleep apnea syndrome Surgical History History of facial surgery History of hernia surgery Family History Other Diabetes Hypertension Social History Smoking Status: Never smoker alcohol intake: never substance use type: denies use current occupational status: disabled Travel in the last 8 weeks?: None household members: significant other housing: house marital status: number of children: 7 Have you lived/traveled outside US in past 30 days?: No Contact w/someone who lives/traveled outside US past 30 days?: No Exposure to someone with infectious disease in past 14 days?: No Do you have a fever (greater than 100.4 F or 38 C)?: No Have you tested positive for COVID-19?: No Exposed to someone with COVID-19 in past 14 days?: No Do you have a sore throat?: No Do you have a cough?: No Do you have any weakness?: No Do you have any diarrhea?: No Are you experiencing any unusual bleeding?: No Do you have any muscle aches/pain?: No Do you have any abdominal pain?: No Are you experiencing loss of taste or smell?: No PM Subjective & Objective Subjective Subjective:: Patient is a pleasant 69-year-old male who presents today for medication refill. Today he rates his pain a 3 out of 10. He denies any new issues or changes from our last appointment. He is prescribed gabapentin 100 mg daily and Fruitport 10 mg 4 times a day. His Lloyd has been reviewed and is appropriate. Review of Systems: General: No recent weight changes, no fever, no sleep disturbances Respiratory: No cough, no shortness of air, no recurring pulmonary infections Cardiovascular/peripheral vascular: No chest pain, no palpitations, no edema, no shortness of breath Gastrointestinal: No new onset incontinence, normal bowel movements reported Genitourinary: No new onset incontinence Musculoskeletal: Chronic back pain Psychiatric: [Normal mood/affect] Neurological: [Denies weakness in extremities], [denies balance issues] Pain at rest (0-10 scale): 3 Objective Objective:: Physical Exam: General: Alert and oriented x3, no acute distress, pleasant and cooperative Lungs: Respirations even and unlabored, symmetrical chest expansion Eyes: PERRL Musculoskeletal: Flexion and extension of lumbar [spine] somewhat guarded secondary to pain, [antalgic gait noted] Neurological: Speech clear, no gross sensory deficit Has patient had previous pain injection?: No Conservative treatment options previously tried: Prescription medications Length of treatment: Longer than 12 weeks Meds Home Medications and Allergies Home Medications ?Medication ?Instructions ?Recorded ?Confirmed ?Type amlodipine 10 mg tablet 10 mg PO DAILY . 06/14/21 09/15/24 History benazepril 20 mg tablet 20 mg PO DAILY . 06/14/21 09/15/24 History metformin 500 mg/5 mL oral solution 500 mg PO BID Diabetes 06/14/21 09/15/24 History albuterol sulfate 90 mcg/actuation 1 - 2 puffs inhalation Q6HP PRN 08/01/21 09/15/24 Rx aerosol inhaler Shortness Of Breath #1 ea ibuprofen 800 mg tablet 800 mg PO TID PRN Moderate Pain 30 11/15/21 09/15/24 Rx days #240 tabs gabapentin 100 mg capsule 100 mg PO DAILY #30 caps 09/15/24 Rx hydrocodone 10 mg-acetaminophen 1 tab PO QID #120 tabs 09/15/24 Rx 325 mg tablet gabapentin 100 mg capsule 100 mg PO DAILY #9 caps 09/24/24 Rx hydrocodone 10 mg-acetaminophen 1 tab PO QID #36 tabs 09/24/24 Rx 325 mg tablet New Prescriptions to Start Prescriptions: Allergies Allergy/AdvReac Type Severity Reaction Status Date / Time albuterol Allergy Severe breathing Verified 10/23/23 14:06 problems Assessment and Plan *Assessment and plan (1) Degenerative disc disease, lumbar: Status: Acute Qualifiers: Disc-related pain type: discogenic back pain and lower extremity pain Qualified Code(s): M51.362 - Other intervertebral disc degeneration, lumbar region with discogenic back pain and lower extremity pain Category: Medical Code(s): M51.369 - Other intervertebral disc degeneration, lumbar region without mention of lumbar back pain or lower extremity pain (2) Lumbar radiculopathy: Status: Acute Category: Medical Code(s): M54.16 - Radiculopathy, lumbar region Plan I will refill his Fruitport and gabapentin provided 1 month supply of these medications. Patient will return to clinic in 1 month. Risks and benefits of the medication have been explained in detail to the patient. The patient does understand the risk of dependence on the medication when given over a prolonged period. Patient has been advised of risks of oversedation with the prescribed medication. Narcan has been offered to the paitent in the event of oversedation. Patient has been advised that a family member should also be educated regarding administration of Narcan. The patient has been advised to consult with his/her primary care provider and pharmacist regarding drug-drug interaction of medications currently prescribed. Patient has been prescribed a controlled substance after being counseled on the medication, medication safety, and possible side effects. Opioid contract was reviewed and signed by the patient, and that they have agreed to all of the terms set forth by our compliance program. A UDS is needed to verify patient's compliance with our office pain contract. This is ordered based off specific treatments related to chronic pain with the potential to abuse certain medications. Patient has been instructed to contact the clinic with any concerns before the next appointment. Dr. Santiago has reviewed this note and agrees with this plan of care. This note was dictated using voice recognition software and make contain errors or omissions.
[2024-10-18 15:29] VITALS: BP 109/75; PULSE 86; RESP 18; O2SAT 95; BMI 27.8
== END 2024-10-18 23:59 | disposition home or self-care (01) ==
PROVIDERS: PCP Family Medicine; Visit Provider Nurse Practitioner Family
DX: M51.16 Intervertebral disc disorders with radiculopathy, lumbar region (principal); Z79.891 Long term (current) use of opiate analgesic; Z79.899 Other long term (current) drug therapy
CPT/HCPCS: 99212; G0463

== ENCOUNTER 2024-11-17 13:21 | Outpatient (POV) | payer BC, MEDICARE, SELFPAY ==
--- OUTSIDE RECORDS SUMMARY | 2024-10-11 09:15 | XMS_ITS ---
Author Organization [facility] Address [address] [place] [id number] Care Team Providers Care Lab Tech Name Role Phone Ted Knutsonory Unavailable [phone] JuniorShruti ayala Unavailable [phone] Allergies No Known Allergies REASON FOR VISIT Discuss weight loss Medications Medication SIG (Take, Route, Frequency, Duration) Notes Start Date End Date Status Karen-D Allergy & Congestion 60-120 MG TAKE 1 TABLET BY MOUTH EVERY 12 HOURS Twice a day; Duration: 90 days Active Cialis 10 MG 1 tab(s) orally once a day as needed Active Ondansetron 4 MG 1 tablet on the tongue and allow to dissolve Orally every 6 hours As needed 10/11/2024 Active Debrox 6.5 % 5 drops into affecte d ear Otic Twice a day 08/14/2023 Active Albuterol Sulfate HFA 108 (90 Base) MCG/ACT 1 puff as needed Inhalation every 4 hrs Active Ibuprofen 600 MG 1 tablet with food o r milk as needed Orally every 8 hours as needed; Duration: 90 days 01/23/2023 Active Omeprazole 40 MG Take 1 capsule by [facility] once daily for 90 days Orally Once a day; Duration: 90 days Active amLODIPine Besylate 10 MG Take 1 tablet by mouth once daily for 90 days; Duration: 90 days Active Benazepril HCl 20 MG 1 tab(s) orally onc e a day; Duration: 90 days Active Zepbound 2.5 MG/0.5ML 0.5 mL Subcutaneou s weekly; Duration: 30 days 10/11/2024 Active HYDROcodone Bitartrate ER 10 MG 1 cap(s) orally every 12 hours; Duration: 30 day(s) Activ e metFORMIN HCl 500 MG 1 tab(s) orally 2 t imes a day; Duration: 90 days Active Vital Signs Blood pressure systolic 112 mm Hg 10/12/19 25 Blood pressure diastolic 76 mm Hg 025 Heart Rate 76 /min 10/11/2024 Height 69 in 10/11/2024 Weight 197.4 lbs 10/11/2024 BMI 29.15 kg/m2 10/11/2024 Encounters Encounter Location Date Provider Diagnosis [facility] [address] [place] [id number] 10/11/2024 Shruti Junior Weight loss counseling, encounter for Z71.3 ; Chronic nausea R11.0 and BMI 29.0-29.9,adult Z68.29 Assessments Encounter Date Diagnosis (ICD Code) Assessment Notes Treatment Notes Treatment Clinical Notes Section Notes 10/11/2024 Weight loss counseling, encounter for (ICD-10 - Z71.3) We discussed this shot is once weekly. We discussed a good diet, portion control, and exercising would also benefit. Discussed possible side effects and to continue taking the miralax. 10/11/2024 Chronic nausea (ICD-10 - R11.0) 10/11/2024 BMI 29.0-29.9,adul t (ICD-10 - Z68.29) Plan Of Treatment Medication Medication Name Sig Start Date Stop Date Notes Ondansetron 4 MG 1 tablet on the tong ue and allow to dissolve Orally every 6 hours 10/11/2024 Zepbound 2.5 MG/0.5ML 0.5 mL Subcutaneou s weekly; Duration: 30 days 10/11/2024 Treatment Notes Assessment Notes Weight loss counseling, encounter for We discussed this shot is once weekly. We discussed a good diet, portion control, and exercising would also benefit. Discussed possible side effects and to continue taking the miralax. Next Appt Details Follow Up: 4 Weeks, Reason: Progress Notes * CANDI SRINIVASANDOB:1955 (69 yo M)Acc No.[id number]:10/11/2024 Progress Notes Patient: CANDI TAYLOR Provider: ZHAO Pagan :1955 A ge:69 Y S ex:Male Date:10/11/2024 Address:[address] [place] [address], [id number] Subjective: * Chief Complaints: * 1 . Discuss weight loss. * HPI: C onstitutional: 69 year old male presents with c/o weight loss P t is here today to discuss weight loss medication. * ROS: R ESPIRATORY: no S hortness [...] orally 2 times a day , Taking Ibuprofen 600 MG Tablet 1 tablet with food or milk as needed Orally every 8 hours as needed , Taking amLODIPine Besylate 10 MG Tablet Take 1 tablet by mouth once daily for 90 days , Taking Omeprazole 40 MG Capsule Delayed Release Take 1 capsule by mouth once daily for 90 days Orally Once a day , Taking Benazepril HCl 20 MG Tablet 1 tab(s) orally once a day , Taking Karen-D Allergy & Congestion 60- 120 MG Tablet Extended Release 12 Hour TAKE 1 TABLET BY MOUTH EVERY 12 HOURS Twice a day , Taking Debrox 6.5 % Solution 5 drops into affected ear Otic Twice a day , Taking Cialis 10 MG Tablet 1 tab(s) orally once a day as needed , Taking Albuterol Sulfate HFA 108 (90 Base) MCG/ACT Aerosol Solution 1 puff as needed Inhalation every 4 hrs , Medication List reviewed and reconciled with the patient * Allergies: N .K.D.A. Objective: * Vitals: W t: 197.4, Temp: 98.2, BP: 112/76, HR: 76, Nurse: [facility], Ht: 69, BMI:29.15. * Examination: G eneral Examination: General Appearance: N AD, appears healthy. H EENT: f alse eye in left. O ral cavity: n ormal. N yunier: n o lymphadenopathy. H eart:?RRR. L ungs: n ormal, clear to auscultation. A bdomen: b owel sounds present.?Skin: n ormal, no rash. Assessment: * Assessment: 1. W eight loss counseling, encounter for - Z71.3 (Primary) 2 . C hronic nausea - R11.0 3 . B NM 29.0-29.9,adult - Z68.29 Plan: * Treatment: 2. C hronic nausea Start Ondansetron Tablet Disintegrating, 4 MG, 1 tablet on the tongue and allow to dissolve, Orally, every 6 hours As needed, 10. * Procedure Codes: 1 036F TOBACCO NON-USER, G8420 BMI<30 AND >=22 CALC & DOCU, G8783 BP SCR PRFRM RCMDD DEFIND SCR INTVL, G8752 MOST RECENT SYSTOLIC BP < 140MM HG, G8754 MOST RECENT DIASTOLIC BP < 90MM HG * Follow Up: 4 Weeks * Images: Billing Information: * Visit Code: 89213 Office Visit, Est Pt., Level 3. * Procedure Codes: 1036F TOBACCO NON-USER. G8420 BMI<30 AND >=22 CALC & DOCU. G8783 BP SCR PRFRM RCMDD DEFIND SCR INTVL. G8752 MOST RECENT SYSTOLIC BP < 140MM HG. G8754 MOST RECENT DIASTOLIC BP < 90MM HG. 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
--- OUTSIDE RECORDS SUMMARY | 2024-10-25 11:15 | XMS_ITS ---
[facility] [address] [place] [id number] Care Team Providers Care Dairy Farm Manager Name Role Phone Ted Knutsonory Unavailable [phone] JuniorShruti ayala Unavailable [phone] Allergies No Known Allergies REASON FOR VISIT spider bite Medications Medication SIG (Take, Route, Frequency, Duration) Notes Start Date End Date Status Albuterol Sulfate HFA 108 (90 Base) MCG/ACT 1 puff as needed Inhalation every 4 hrs Active Zepbound 2.5 MG/0.5ML 0.5 mL Subcutaneou s weekly; Duration: 30 days 10/11/2024 Active HYDROcodone Bitartrate ER 10 MG 1 cap(s) orally every 12 hours; Duration: 30 day(s) Active Ondansetron 4 MG 1 tablet on the tongue and allow to dissolve Orally every 6 hours As needed 10/11/2024 Active Karen-D Allergy & Congestion 60-120 MG TAKE 1 TABLET BY MOUTH EVERY 12 HOURS Twice a day Active Debrox 6.5 % 5 drops into affecte d ear Otic Twice a day 08/14/2023 Active Cialis 10 MG 1 tab(s) orally once a day as needed Active amLODIPine Besylate 10 MG Take 1 tablet by mouth once daily for 90 days; Duration: 90 days Active Omeprazole 40 MG Take 1 capsule by [facility] once daily for 90 days Orally Once a day; Duration: 90 days Active Benazepril HCl 20 MG 1 tab(s) orally onc e a day; Duration: 90 days Active Ciprofloxacin HCl 0.2 % 0.25 mL into aff ected right ear Otic every 12 hrs; Duration: 5 days 10/25/2024 Active metFORMIN HCl 500 MG 1 tab(s) orally 2 t imes a day; Duration: 90 days Active Ibuprofen 600 MG 1 tablet with food o r milk as needed Orally every 8 hours as needed; Duration: 90 days 01/23/2023 Active Vital Signs Blood pressure systolic 110 mm Hg 10/26/19 25 Blood pressure diastolic 70 mm Hg 025 Heart Rate 83 /min 10/25/2024 Height 69 in 10/25/2024 Weight 198.4 lbs 10/25/2024 BMI 29.3 kg/m2 10/25/2024 Encounters Encounter Location Date Provider Diagnosis [facility] [address] [place], [place] [id number] 10/25/2024 Shruti Junior Insect bite W57.XXXA ; Acute diffuse otitis externa of right ear H60.311 and BMI 29.0-29.9,adult Z68.29 Assessments Encounter Date Diagnosis (ICD Code) Assessment Notes Treatment Notes Treatment Clinical Notes Section Notes 10/25/2024 Insect bite (ICD-10 - W57.XXXA) 10/25/2024 Acute diffuse otitis externa of right ear (ICD-10 - H60.311) He is to use the ear drop in the right ear in hopes it well help clear up the redness in the canal. We discussed to continue to use Karen everyday not every other day for it to be effective. We also discussed flonase. He was apprehensive but said he would give it a shot. 10/25/2024 BMI 29.0-29.9,adul t (ICD-10 - Z68.29) Plan Of Treatment Medication Medication Name Sig Start Date Stop Date Notes Karen-D Allergy & Congesti on 60-120 MG TAKE 1 TABLET BY MOUTH EVERY 12 HOURS Twice a day Ciprofloxacin HCl 0.2 % 0.25 mL into aff ected right ear Otic every 12 hrs; Duration: 5 days 10/25/2024 Treatment Notes Assessment Notes Acute diffuse otitis externa of right ea r He is to use the ear drop in the right ear in hopes it well help clear up the redness in the canal. We discussed to continue to use Karen everyday not every other day for it to be effective. We also discussed flonase. He was apprehensive but said he would give it a shot. Next Appt Details Follow Up: prn, Reason: Progress Notes * FRENCH SRINIVASAN:1955 (69 yo M)Acc No.[id number]:10/25/2024 Progress Notes Patient: CANDI TAYLOR Provider: ZHAO Pagan :1955 A ge:69 Y S ex:Male Date:10/25/2024 Address:[address] [place] [address] Subjective: * Chief Complaints: * 1 . Spider bite. * HPI: D ermatology: 69 year old male presents with c/o bug bites P t here for spider bite. Pt states its on right upper arm. Pt states its been there for a week. Pt states that he has noticed drainage; he is legaly blind and was unable to ID insect; he has picking it ahd trying to express fluid; he feels a bump but cannot see anything. E NT/respiratory: c/o nasal congestion l eft. c/o rhinorrhea. Denies : sore throat. D enies : cough. D enies : Fever.?Denies : ear pain. * ROS: C ARDIOLOGY: no D izziness. n o C hest pain. G ASTROENTEROLOGY: no N ausea. n o V omiting. n o D iarrhea.? U ROLOGY: no D ifficulty urinating. n [...] needed Inhalation every 4 hrs , Taking Zepbound 2.5 MG/0.5ML Solution 0.5 mL Subcutaneous weekly , Taking Ondansetron 4 MG Tablet Disintegrating 1 tablet on the tongue and allow to dissolve Orally every 6 hours As needed, Medication List reviewed and reconciled with the patient * Allergies: N .K.D.A. Objective: * Vitals: W t: 198.4, Temp: 000, BP: 110/70, HR: 83, Nurse: manuela, Ht: 69, BMI:29.3. * Examination: G eneral Examination: General Appearance: N AD, appears healthy. H EENT: r ight ear canal erythema, dull TM, left maxillary sinus tenderness. O ral cavity: n ormal.?Heart: R RR. L ungs: n ormal, clear to auscultation. S kin: i nsect bite to right shoulder. small scab no drainage, swelling, redness, or bump.. P eripheral pulses: n ormal (2+) bilaterally. Assessment: * Assessment: 1. A cute diffuse otitis externa of right ear - H60.311 (Primary) 2 . I nsect bite - W57.XXXA 3 . B IL 29.0-29.9,adult - Z68.29 Plan: * Treatment: * Procedure Codes: 1 036F TOBACCO NON-USER, G8420 BMI<30 AND >=22 CALC & DOCU, 3074F SYST BP LT 130 MM HG, 3078F DIAST BP < 80 MM HG * Follow Up: p rn * Images: Billing Information: * Visit Code: 50886 Office Visit, Est Pt., Level 3. * Procedure Codes: 1036F TOBACCO NON-USER. G8420 BMI<30 AND >=22 CALC & DOCU. 3074F SYST BP LT 130 MM HG. 3078F DIAST BP < 80 MM HG. * Electronic signature of Iwona toro TRIXIE Junior on 11/17/2024 at 01:29 PM EDT Sign off status: Pending * Provider: ZHAO Pagan Date: 0 10/25/2024 Generated for Marlini ng/Fajessikag/eTransmitting on: 0 11/17/2024 01:29 PM EDT History and Physical Notes * HPI (History of Present Illness) Category Sub-Category Detail Notes Category Not es ENT/respiratory sore throat ear pain cough Fever rhinorrhea nasal congestion left Dermatology bug bites Pt here for spid er bite. Pt states its on right upper arm. Pt states its been there for a week. Pt states that he has noticed drainage; he is legaly blind and was unable to ID insect; he has picking it ahd trying to express fluid; he feels a bump but cannot see anything Examination Category Sub-Category Detail Notes Category Not es General Examination HEENT: right ear ca nal erythema, dull TM, left maxillary sinus tenderness Heart: RRR Lungs: normal, clear to aus cultation General Appearance: NAD, appears healthy Skin: insect bite to right shoulder. small scab no drainage, swelling, redness, or bump. Oral cavity: normal Peripheral pulses: normal (2+) bilatera lly
--- OUTSIDE RECORDS SUMMARY | 2024-11-15 09:15 | XMS_ITS ---
Author Organization [facility] Address [address] [facility] [address] [place] [id number] Care Team Providers Care Reed Maker Name Role Phone EamonTed Meir Unavailable [phone] Shruti Junior Unavailable [phone] REASON FOR VISIT 1 month Encounters Encounter Location Date Provider Diagnosis [facility] [address] [place] [phone] 11/15/2024 Shruti Junior Plan Of Treatment No Information Progress Notes * CANDI SRINIVASANDOB:1955 (69 yo M)Acc No.[id number]:11/15/2024 Progress Notes Patient: CANDI TAYLOR Provider: ZHAO Pagan :1955 A ge:69 Y S ex:Male Date:11/15/2024 Address:[address] [place] [address] [place] [id number] Subjective: * Chief Complaints: * 1 . 1 month. * Medical History: Objective: * Vitals: Assessment: Plan: * Treatment: * Images: Billing Information: * Visit Code: * Procedure Codes: * Electronic signature of Iwona Junior APRN on 11/17/2024 at 01:29 PM EDT Sign off status: Pending * Provider: ZHAO Pagan Date: 11/15/2024 Generated for Melvina hodges/Pia/Julian on: 11/17/2024 01:29 PM EDT
--- OUTSIDE RECORDS SUMMARY | 2024-11-17 13:29 | XMS_ITS | Patient Health Record ---
Author Organization [facility] Address [address] [place] [id number] Care Team Providers Care Sizing Sprayer Name Role Phone Ted Knutson Unavailable [phone] Shruti Junior Unavailable [phone] Allergies No Known Allergies Results Component Value Reference Range Notes H-CBC Reviewed date:09/15/2024 05:39:18 PM Interpretation: Performing [...] 0.1 0-0.2 K/mm3 NRBC# 0 IG# 0.02 H-MICROALB Reviewed date:09/15/2024 05:38:23 PM Interpretation: Performing Lab: Notes/Report: MICROALB 7.900 0-16.7 mg/L H-Lipid Panel Reviewed date:09/15/2024 05:36:57 PM Interpretation:TG 244; IMV027.59;HDL 29 Performing Lab: Notes/Report: Patient Fasting? Y TRIG 244 30-150 mg/dl CHOL 193 140-200 mg/dl DLDL 119.59 100-129 mg/dL VLDL 49 0-40 mg/dL HDL 29 40-60 mg/dl CHLHDL 6.7 1-3.5 H-CMP Reviewed date:09/15/2024 05:37:23 PM Interpretation: Performing [...] AGRATIO 1.9 1.1-1.8 ALP 72 38-126 U/L H-Glycohemoglobin A1C Reviewed date:09/15/2024 05:37:54 PM Interpretation:5.6 Performing Lab: Notes/Report: HGBA1C 5.6 4.0-6.0 % < 6% Non-Diabetic Level < 7% Controlled Diabetic Level > 8% Poorly Controlled Diabetic Level H-PSA Reviewed date:09/15/2024 05:36:22 PM Interpretation:0.5 Performing Lab: Notes/Report: PSASC 0.5 0.0-4.0 ng/ml H-Creatinine Urine, random Reviewed date:09/15/2024 05:38:50 PM Interpretation: Performing Lab: Notes/Report: UCREAT 153 Not Estab. mg/dL Random urine reference range not established. 24 hour urine samples recommended. CBC Fingerstick (in house) Reviewed date:03/29/2024 09:00:07 [...] - 38 plat 272 100 - 400 H-Microalbumine/Creatinine Reviewed date:09/13/2024 04:22:14 PM Interpretation:see duplicate order Performing Lab: Notes/Report: see duplicate order Glycohemoglobin (HbA1C) Reviewed date:09/13/2024 04:21:07 PM Interpretation:see [...] 03:29:22 PM Interpretation:declines Performing Lab: Notes/Report: declines M-Testosterone Reviewed date:09/15/2024 05:35:37 PM Interpretation:485 Performing Lab: Notes/Report: lcTESTT 485 264-916 ng/dL Adult male reference interval is based on a population of healthy nonobese males (BMI <30) between 19 and 39 years old. Ania et.al. JCEM 2017,102;9386-1096. PMID: 44278502. Performed at: [address] [id number] [place]: Judson Ni PhD, Phone: [phone] Reason For Referral No Information Medications Medication SIG (Take, Route, Frequency, Duration) Notes Start Date End Date Status Ciprofloxacin HCl 0.2 % 0.25 mL into aff ected right ear Otic every 12 hrs; Duration: 5 days 10/25/2024 Active Debrox 6.5 % 5 drops into affecte d ear Otic Twice a day 08/14/2023 Active Cialis 10 MG 1 tab(s) orally once a day as needed Active Albuterol Sulfate HFA 108 (90 Base) [...] EVERY 12 HOURS Twice a day Active metFORMIN HCl 500 MG 1 tab(s) orally 2 t imes a day; Duration: 90 days Active Ibuprofen 600 MG 1 tablet with food o r milk as needed Orally every 8 hours as needed; Duration: 90 days 01/23/2023 Active amLODIPine Besylate 10 MG Take 1 tablet by mouth once daily for 90 days; Duration: 90 days Active Omeprazole 40 MG Take 1 capsule by [facility] once daily for 90 days Orally Once a day; Duration: 90 days Active Benazepril HCl 20 MG 1 tab(s) orally onc e a day; Duration: 90 days Active Problems Problem Type SNOMED Code ICD Code Onset Dates Problem Status W/U Status Risk Notes Problem Hyperlipidemia (60085525) Hyperlipidemia (E78.5) Active confirmed Problem Vitamin D deficiency (73919465) Vitamin D deficiency (E55.9) Active confirmed Problem Environmental allergy (597652676) Environmental allergies (Z91.09) Active confirmed Problem Primary insomnia (0404238) Primary insomnia (F51.01) Active confirmed Problem Snoring (04481028) Snoring (R06.83) Active conf irmed Problem Chronic pain (40361049) Other chronic pain (G89.29) Active confirmed Problem Gastroesophageal reflux disease (disorder) (903209118) Chronic GERD (K21.9) Active confirmed Problem Erectile dysfunction (disorder) (999138773) Erectile dysfunction, unspecified erectile dysfunction type (N52.9) Active confirmed Problem Daytime somnolence (684595194670) Excessive daytime sleepiness (G47.19) Active confirmed Problem Impaired fasting glycaemia (144227243) IFG (impaired fasting glucose) (R73.01) Active confirmed Problem Seasonal allergic rhinitis (858490051) Seasonal allergic rhinitis, unspecified trigger (J30.2) Active confirmed Problem Allergic rhinitis (22691404) Non-seasonal allergic rhinitis, unspecified trigger (J30.89) Active confirmed Problem Allergic rhinitis (93331049) Allergic rhinitis, unspecified seasonality, unspecified trigger (J30.9) Active confirmed Problem Essential hypertension (35522882) Hypertension, unspecified type (I10) Active confirmed Problem Influenza vaccination declined (776145039) Influenza vaccination declined (Z28.21) Active confirmed Problem Blindness AND/OR vision impairment level (disorder) (914690480) Blindness and low vision (H54.10) Active confirmed Problem Allergic rhinitis (77921402) Acute allergic rhinitis (J30.9) Active confirmed Problem Primary hypertension (42608593) Primary hypertension (I10) Active confirmed Problem 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 Problem 23-polyvalent pneumococcal polysaccharide vaccine declined (Z28.21) Active confirmed Vital Signs Heart Rate 83 /min 10/25/2024 Blood pressure diastolic 70 mm Hg 10/25/2024 Height 69 in 10/25/2024 Blood pressure systolic 110 mm Hg 10/25/2024 Weight 198.4 lbs 10/25/2024 BMI 29.3 kg/m2 10/25/2024 Encounters Encounter Location Date Provider Diagnosis [facility] [address] [place], [place] [id number] 03/29/2024 Shrutimila Junior URI (upper respirato ry infection) J06.9 [facility] [address] [place], [place] [id number] 04/26/2024 Shruti Junior Urinary stream slowi ng R39.198 ; Primary hypertension I10 ; Erectile dysfunction, unspecified erectile dysfunction type N52.9 ; Allergic rhinitis, unspecified seasonality, unspecified trigger J30.9 and Acute allergic rhinitis J30.9 [facility] [address] [facility] [address] [place], [place] [id number] 08/23/2024 Shrutimila Junior Adult general medica l examination Z00.00 [...] ; Hyperlipidemia E78.5 and BMI 28.0-28.9,adult Z68.28 [facility] [address] [place], [place] [id number] 10/11/2024 Shrutimila Junior Weight loss counseli tracie, encounter for Z71.3 ; Chronic nausea R11.0 and BMI 29.0-29.9,adult Z68.29 [facility] [address] [facility] [address] [place], [place] [id number] 10/25/2024 Shruti Junior Insect bite W57.XXXA ; Acute diffuse otitis externa of right ear H60.311 and BMI 29.0-29.9,adult Z68.29 [facility] [address] [facility] [address] [place], [place] [id number] 12/16/2023 Ted Knutson [facility] [address] [facility] [address] [place], [place] [id number] 03/30/2024 Shruti Junior [facility] [address] [facility] [address] [place], [place] [id number] 04/28/2024 Shruti Junior Urinary stream slowi ng R39.198 [facility] [address] [facility] [address] [place], [place] [id number] 05/05/2024 Ted Knutson Other chronic pain G89.29 [facility] [address] [facility] [address] [place], [place] [id number] 10/11/2024 Ted Knutson Assessments Encounter Date Diagnosis (ICD Code) Assessment [...] miralax. 10/11/2024 Chronic nausea (ICD-10 - R11.0) 10/25/2024 Acute diffuse otitis externa of right [...] he would give it a shot. 10/25/2024 Insect bite (ICD-10 - W57.XXXA) 10/25/2024 BMI 29.0-29.9,adult (ICD-10 - Z68.29) 10/11/2024 BMI 29.0-29.9,adult (ICD-10 - Z68.29) 08/23/2024 Erectile dysfunction, unspecified erectile dysfunction type [...] 12/29/2020 H-Glycohemoglobin A1C 12/29/2020 H-URIC ACID 12/29/2020 Insurance Providers Payer Name Payer Address Payer Phone Subscriber Number Group Number Insured Name Patient Relationship to Insured Coverage Start Date Coverage End Date DARRICK MENJIVAR [employer] [address] [place] [address] [id number] LUI Self - patient is the insured MEDICARE PART B [address] [address] [place] [phone] [id number] CANDI SRINIVASAN Self - patient is the insured Medical (General) History Medical History History ICD Code Hypertertion Impaired Fasting Glucose GERD Legally Blind Vitamin D Deficiency Chronic pain, followed by pain managemen t Surgical History Surgery Date(Month/Year) Hernia 2004 Faical Trauma 2011 Nasal 2015 Hospitalization History Reason Date(Month/Year)
--- OUTSIDE RECORDS SUMMARY | 2024-11-17 13:30 | XMS_ITS | Clinical Summary ---
Author Organization [facility] Address [address] [place] [address] Care Team Providers Care Clinical Informaticist Name Role Phone Fantasma Knutson MD Primary Care Provider [phone] Allergies Active Allergy Reactions Criticality Noted Date Comments Albuterol Other (See Comments) Low 02/28/2018 SVT Medications tadalafil (CIALIS) 10 MG tablet Take 1 tablet by mouth Daily. 08/15/2023 Active metFORMIN (GLUCOPHAGE) 500 MG tablet Active [facility] 60-120 MG per 12 hr tablet Take 1 tablet by mouth Every 12 (Twelve) Hours. 10/17/2023 Active benazepril (LOTENSIN) 20 MG tablet Active Azelastine HCl 137 MCG/SPRAY solution USE 1 SPRAY(S) IN EACH NOSTRIL TWICE DAILY 08/15/2023 Active amLODIPine (NORVASC) 10 MG tablet Active omeprazole (priLOSEC) 40 MG capsule Take 1 capsule by mouth Daily. Active Active Problems Problem Noted Date Diagnosed Date LIZETTE (obstructive sleep apnea) 11/07/2023 Assessment & Plan (01/22/2024 3:39 PM EDT): Patient has a baseline AHI 24. This is moderate sleep apnea. Download shows compliance and control. He report better sleep. He has issues with air leaking into his eye. Will adjust pressures 6-10cm plan to continue. Order sent to DME to adjust pressures 6-10 cm and to send chin strap with pap supplies. Assessment & Plan (11/07/2023 8:54 AM EDT): Patient has a baseline AHI of 24 this is moderate sleep apnea. Download shows good compliance with suboptimal control with an AHI of 19. Patient states he does have improved sleep on his CPAP. He also reports improved daytime sleepiness and fatigue. Patient declines titration study at this time and would like another 30 days to see if his AHI improves. Patient is receiving benefit from PAP therapy plan to continue current treatment. Will plan follow-up in 30 days or sooner if symptoms worsen or any issues. Nocturnal hypoxemia 11/07/2023 Assessment & Plan (01/22/2024 3:11 PM EDT): On HST noted that patient's respiratory disturbances were associated with oxygen desaturations down to 80%. The mean oxygen saturations during the study was 91%. The cumulative time under 88% oxygen saturation was 88.6 minutes. Patient continues to declines titration study. Will continue CPAP therapy with pressure adjustment. Assessment & Plan (11/07/2023 8:52 AM EDT): On HST noted that patient's respiratory disturbances were associated with oxygen desaturations down to 80%. The mean oxygen saturations during the study was 91%. The cumulative time under 88% oxygen saturation was 88.6 minutes. Patient declines titration study. Will continue CPAP therapy and follow-up in 1 month. Family History Medical History Relation Name Comments Diabetes Other Hypertension Other Relation Name Status Comments Other Social History Tobacco Use Types Packs/Day Years Used Date Smoking Tobacco: Never Passive Smoke Exposure: Never Smokeless Tobacco: Never Tobacco Cessation:Counseling Given: Not Answered Alcohol Use Standard Drinks/Week Comments No 0 (1 standard drink = 0.6 oz pur e alcohol) AUDIT-C Answer Date Recorded Frequency of Alcohol Consumption Never 02/28/2018 Average Number of Drinks Not on file 018 Frequency of Binge Drinking Not on file 02/12 Abuse Screen Answer Date Recorded Unsafe at Home or Work/School Not on file Feels Threatened by Someone? Not on file 03/2023 Does Anyone Keep You from Co ntacting Others or Doint Things Outside the Home? Not on file 01/23/2023 Physical Sign of Abuse Present Not on file 1 Housing Stability Answer Date Recorded Current Living Arrangements Not on file 01/12 Potentially Unsafe Housing Conditions Not on marta e 01/23/2023 Family and Community Support Answer Brody e Recorded Help with Day-to-Day Activities Not on file 01/23/2023 Lonely or Isolated Not on file 01/23/2023 Employment Answer Date Recorded Do you want help finding or keeping work or a evens b? Not on file 01/23/2023 Disabilities Answer Date Recorded Concentrating, Remembering, or Making Decisions Difficulty Not on file 01/23/2023 Doing Errands Independently Difficulty Not on fi le 01/23/2023 Education Answer Date Recorded Help with school or training? Not on file Preferred Language Not on file 01/23/2023 Sex and Gender Information Value Date Recorded Sex Assigned at Not on file Legal Sex Male 4:51 PM EST Gender Identity Not on file Sexual Orientation Not on file Last Filed Vital Signs Vital Sign Reading Time Taken Comments Blood Pressure 116/72 01/22/2024 1:36 PM EDT Pulse 80 01/22/2024 1:36 PM EDT Temperature 36.6 C (97.8 F) 02/28/2018 4:52 PM EST Respiratory Rate 16 02/28/2018 4:52 PM EST Oxygen Saturation 94% 01/22/2024 1:36 PM EDT Inhaled Oxygen Concentration - - Weight 92.4 kg (203 lb 11.2 oz) 01/22/2024 1:36 PM EDT Height 175.3 cm (5' 9 ) 01/22/2024 1:36 PM EDT Body Mass Index 30.08 01/22/2024 1:36 PM EDT Plan of Treatment Health Maintenance Due Date Last Done Comments COLOGUARD 2002 COLON CANCER SCREENING 5 YEAR SIGMOIDOSCOPY 2002 COLONOSCOPY 2002 COL[address]AL CANCER SCREENING 2002 CT COLONOGRAPHY 2002 FECAL OCCULT BLOOD TEST 2002 FIT Testing (1 year) 2002 Pneumococcal Vaccine 50+ (1 of 1 - PCV) 2007 ZOSTER VACCINE (1 of 2) 2007 TDAP/TD VACCINES (2 - Td or Tdap) 12/17/2021 012 ANNUAL WELLNESS VISIT 11/04/2023 HEPATITIS C SCREENING 11/04/2023 COVID-19 Vaccine ( season) 2023 INFLUENZA VACCINE 01/12/2025 01/17/2014 Insurance Alfred [place] [employer] [place] [facility] MEDICAID PENDING on file MEDICARE A & B Member Subscriber Plan / Payer (Ef fective 2002-Present) Name:Collin Posey Member ID:[id number] Relation to Subscriber:Self Name:KalpeshTavaresdy Subscriber ID:[id number] Payer ID:[id number] Group ID:Not on file Type:Not on file Address: [facility] [address] [address] Care Teams Clinical Informaticist Relationship Specialty Start Date End Date Fantasma Knutson MD [address] [place] [address] PCP - General Family Medicine 11/03/23
--- OUTSIDE RECORDS SUMMARY | 2024-11-17 13:30 | XMS_ITS | Clinical Summary ---
Author Organization Healthcare Address [address] [place] [address] Care Team Providers Care Bibliographic Services Specialist Name Role Phone Amilcar Catherine MD Primary Care Provider + [phone] Allergies Active Allergy Reactions Criticality Noted Date [...] Screening 1955 [facility]ic[facility] Annual Wellness (AWV) 1955 [facility]-Infant/Child/Adol SDOH Screenings 1957 [facility]- SDOH Screenings 1975 [facility]-Adult SDOH Screenings 1975 CT Colonography 2002 Colonoscopy 2002 FIT-DNA 2002 FIT 2002 FOBT 2002 Sigmoidoscopy 2002 [facility]-Colorectal Cancer Screening 2002 [facility]-Pneumococcal Vaccine: 50 + Years (1 of 1 - PCV) 2007 [facility]-Zoster Vaccines (1 of 2) 2007 [facility]-DTaP,Tdap,and Td Vaccine s (2 - Td or Tdap) 12/17/2021 12/18/2011 [id number] Vaccine (1 - 20 24-25 season) 2023 [...] patient's age to complete this topic Insurance MEDICARE Care Teams Bibliographic Services Specialist Relationship Specialty Start Date End Date Amilcar Catherine MD [address] [facility] [address] [address] [facility] - General 02/08/21
--- NOTE | 2024-11-17 14:03 | EXP.PAIN.SOA ---
[facility] Disclaimer: The information contained in this section may have been updated after the patient was seen, as this information can be updated by other users. Medical History Complex sleep apnea syndrome Surgical History History of facial surgery History of hernia surgery Family History Other Diabetes Hypertension Social History Smoking Status: Never smoker alcohol intake: never substance use type: denies use current occupational status: disabled Travel in the last 8 weeks?: None household members: significant other housing: house marital status: number of children: 7 PM Subjective & Objective Subjective Subjective:: Patient is a pleasant 69-year-old male who presents today for medication refill. He does state that he has had issues with his life insurance due to the gabapentin and so would like us to just discontinue this medication. He is still using his [place] 10 mg 4 times a day with improvement. He denies any side effects. His Lloyd has been reviewed and is appropriate. Review of Systems: General: No recent weight changes, no fever, no sleep disturbances Respiratory: No cough, no shortness of air, no recurring pulmonary infections Cardiovascular/peripheral vascular: No chest pain, no palpitations, no edema, no shortness of breath Gastrointestinal: No new onset incontinence, normal bowel movements reported Genitourinary: No new onset incontinence Musculoskeletal: Low back pain Psychiatric: [Normal mood/affect] Neurological: [Denies weakness in extremities], [denies balance issues] Pain at rest (0-10 scale): 3 Objective Objective:: Physical Exam: General: Alert and oriented x3, no acute distress, pleasant and cooperative Lungs: Respirations even and unlabored, symmetrical chest expansion Eyes: PERRL Musculoskeletal: Flexion and extension of lumbar [spine] somewhat guarded secondary to pain, [antalgic gait noted] Neurological: Speech clear, no gross sensory deficit Has patient had previous pain injection?: No Conservative treatment options previously tried: Home exercise plan Length of treatment: Longer than 12 weeks Meds Home Medications and Allergies Home Medications ?Medication ?Instructions ?Recorded ?Confirmed ?Type amlodipine 10 mg tablet 10 mg PO DAILY . 03/03/22 07/07/25 History benazepril 20 mg tablet 20 mg PO DAILY . 06/14/21 10/18/24 History metformin 500 mg/5 mL oral solution 500 mg PO BID Diabetes 06/14/21 10/18/24 History albuterol sulfate 90 mcg/actuation 1 - 2 puffs inhalation Q6HP PRN 08/01/21 10/18/24 Rx aerosol inhaler Shortness Of Breath #1 ea ibuprofen 800 mg tablet 800 mg PO TID PRN Moderate Pain 30 11/15/21 10/18/24 Rx days #240 tabs gabapentin 100 mg capsule 100 mg PO DAILY #9 caps 09/24/24 10/18/24 Rx hydrocodone 10 mg-acetaminophen 1 tab PO QID #36 tabs 09/24/24 10/18/24 Rx 325 mg tablet gabapentin 100 mg capsule 100 mg PO DAILY #30 caps 10/18/24 Rx hydrocodone 10 mg-acetaminophen 1 tab PO QID #120 tabs 10/18/24 Rx 325 mg tablet New Prescriptions to Start Prescriptions: Allergies Allergy/AdvReac Type Severity Reaction Status Date / Time albuterol Allergy Severe breathing Verified 10/23/23 14:06 problems Assessment and Plan *Assessment and plan (1) Lumbar radiculopathy: Status: Acute Category: Medical Code(s): M54.16 - Radiculopathy, lumbar region (2) Degenerative disc disease, lumbar: Status: Acute Qualifiers: Disc-related pain type: discogenic back pain and lower extremity pain Qualified Code(s): M51.362 - Other intervertebral disc degeneration, lumbar region with discogenic back pain and lower extremity pain Category: Medical Code(s): M51.369 - Other intervertebral disc degeneration, lumbar region without mention of lumbar back pain or lower extremity pain Plan I will refill the patient's Westfield and provide a 1 month supply of this medication. Patient will return to clinic in 1 month for reevaluation of symptoms and plan of care. Risks and benefits of the medication have been explained in detail to the patient. The patient does understand the risk of dependence on the medication when given over a prolonged period. Patient has been advised of risks of oversedation with the prescribed medication. Narcan has been offered to the paitent in the event of oversedation. Patient has been advised that a family member should also be educated regarding administration of Narcan. The patient has been advised to consult with his/her primary care provider and pharmacist regarding drug-drug interaction of medications currently prescribed. Patient has been prescribed a controlled substance after being counseled on the medication, medication safety, and possible side effects. Opioid contract was reviewed and signed by the patient, and that they have agreed to all of the terms set forth by our compliance program. A UDS is needed to verify patient's compliance with our office pain contract. This is ordered based off specific treatments related to chronic pain with the potential to abuse certain medications. Patient has been instructed to contact the clinic with any concerns before the next appointment. Dr. Santiago has reviewed this note and agrees with this plan of care. This note was dictated using voice recognition software and make contain errors or omissions.
[2024-11-17 14:15] VITALS: BP 124/72; PULSE 66; RESP 14; O2SAT 97; BMI 28.3
== END 2024-11-17 23:59 | disposition home or self-care (01) ==
PROVIDERS: PCP Family Medicine; Visit Provider Nurse Practitioner Family
DX: M51.16 Intervertebral disc disorders with radiculopathy, lumbar region (principal)
CPT/HCPCS: 99212; G0463